=== PATIENT | male | born 1940 | race Caucasian/White ===

== ENCOUNTER 2017-05-24 14:29 | Emergency (ER) | payer OTHER, MEDICARE ==
[2017-05-24] MEDS ORDERED: HYDROCODONE/ACETAMINOPHEN 5-325 MG TABLET PO ONE (14:54)
--- NOTE | 2017-05-24 14:54 | ER Document Report ---
ED General - General Chief Complaint: Fall Stated Complaint: FALL FACIAL PAIN Time Seen by Provider: 05/24/17 14:50 Mode of Arrival: Ambulatory Information source: Patient Notes: 76 yr old male on Coumadin for history of blood clot whose last INR was 3.1 on presents after falling out of bed striking his head and his neck TRAVEL OUTSIDE OF THE [place] IN LAST 30 DAYS: No - HPI Onset: Just prior to arrival Onset/Duration: Sudden Quality of pain: Achy Severity: Mild Pain Level: 1 Associated symptoms: Headache, Other Exacerbated by: Movement Relieved by: Denies Similar symptoms previously: No Recently seen / treated by doctor: No - Related Data Allergies/Adverse Reactions: No Known Allergies Allergy (Verified 12/17/15 15:01) Past Medical History - Social History Smoking Status: Never Smoker Cigarette use (# per day): No Chew tobacco use (# tins/day): No Smoking Education Provided: No Frequency of alcohol use: None Drug Abuse: None Family History: Reviewed & Not Pertinent - Past Medical History Cardiac Medical History: Reports: Hx Congestive Heart Failure, Hx Coronary Artery Disease, Hx Heart Attack - 1997?, Hx Hypercholesterolemia, Hx Hypertension Pulmonary Medical History: Reports: Hx Asthma - as child Denies: Hx Tuberculosis Neurological Medical History: Reports: Hx Cerebrovascular Accident - 1989? Renal/ Medical History: Denies: Hx Peritoneal Dialysis GI Medical History: Reports: Hx Hiatal Hernia, Hx Ulcer Musculoskeltal Medical History: Reports Hx Arthritis Psychiatric Medical History: Denies: Hx Depression Traumatic Medical History: Reports: Hx Fractures - rt hand, lft knee Past Surgical History: Reports: Hx Abdominal Surgery - bowel obstructionX6, Hx Appendectomy - 1963, Hx Cardiac Surgery - CARDIAC STENT, AORTIC GRAFT, Hx Cholecystectomy - 2008. Denies: Hx Pacemaker - Immunizations Hx Diphtheria, Pertussis, Tetanus Vaccination: Yes - 2006 Hx Pneumococcal Vaccination: 11/20/13 Review of Systems - Review of Systems Notes: REVIEW OF SYSTEMS: CONSTITUTIONAL : Denies fever, chills, or sweats. Denies recent illness. EENT: Denies eye, ear, throat, or mouth pain or symptoms. Denies nasal or sinus congestion or discharge. Denies throat, tongue, or mouth swelling or difficulty swallowing. CARDIOVASCULAR: Denies chest pain. Denies palpitations or racing or irregular heart beat. Denies ankle edema. RESPIRATORY: Denies cough, cold, or chest congestion. Denies shortness of breath, difficulty breathing, or wheezing. GASTROINTESTINAL: Denies abdominal pain or distention. Denies nausea, vomiting , or diarrhea. Denies blood in vomitus, stools, or per rectum. Denies black, tarry stools. Denies constipation. GENITOURINARY: Denies difficulty urinating, painful urination, burning, frequency, blood in urine, or discharge. MUSCULOSKELETAL: admits to right elbow pain , right knee pain SKIN: Admits to abrasion HEMATOLOGIC : Denies easy bruising or bleeding. LYMPHATIC: Denies swollen, enlarged glands. NEUROLOGICAL: Denies confusion or altered mental status. Denies passing out or loss of consciousness. Denies dizziness or lightheadedness. Denies headache. Denies weakness or paralysis or loss of use of either side. Denies problems with gait or speech. Denies sensory loss, numbness, or tingling. Denies seizures. PSYCHIATRIC: Denies anxiety or stress. Denies depression, suicidal ideation, or homicidal ideation. ALL OTHER SYSTEMS REVIEWED AND NEGATIVE. Dictation was performed using [employer] voice recognition software PHYSICAL EXAMINATION: GENERAL: Well-appearing, well-nourished and in no acute distress. HEAD: Atraumatic, normocephalic. EYES: Pupils equal round and reactive to light, extraocular movements intact, sclera anicteric, conjunctiva are normal. ENT: Nares patent, oropharynx clear without exudates. Moist mucous membranes. NECK: Normal range of motion, supple without lymphadenopathy LUNGS: Breath sounds clear to auscultation bilaterally and equal. No wheezes rales or rhonchi. HEART: Regular rate and rhythm without murmurs ABDOMEN: Soft, nontender, nondistended abdomen. No guarding, no rebound. No masses appreciated. Musculoskeletal: Normal range of motion, no pitting or edema. No cyanosis. NEUROLOGICAL: Cranial nerves grossly intact. Normal speech, normal gait. Normal sensory, motor exams PSYCH: Normal mood, normal affect. SKIN: abrasion ot the right neck, right elbow Physical Exam - Vital signs Vitals: Temp Pulse Resp BP Pulse Ox 99.1 F 77 16 149/65 H 94 05/24/17 14:36 05/24/17 14:36 05/24/17 14:36 05/24/17 14:36 05/24/17 14:36 Course - Re-evaluation Re-evalutation: 05/24/17 16:51 Patient's INR is noted to be 1.99, CT imaging as well as x-rays noted no acute fractures. I reviewed results with patient and he is happy with the findings I will give him very strict return precautions regarding his fall and possible missed injuries After performing a Medical Screening Examination, I estimate there is LOW risk for INTRACRANIAL HEMORRHAGE, UNSTABLE SPINE FRACTURE, CENTRAL CORD SYNDROME, CAUDA EQUINA, THORACIC AORTIC DISSECTION, PNEUMOTHORAX, PERFORATED BOWEL, RUPTURED ABDOMINAL AORTIC ANEURYSM, ACUTE TENDON RUPTURE, COMPARTMENT SYNDROME, or OPEN FRACTURE, thus I consider the discharge disposition reasonable. Also, there is no evidence or peritonitis, sepsis, or toxicity. I have reevaluated this patient multiple times and no significant life threatening changes are noted. The patient and I have discussed the diagnosis and risks, and we agree with discharging home to follow-up with their primary doctor with the understanding that symptoms and presentations can change. We also discussed returning to the Emergency Department immediately if new or worsening symptoms occur. We have discussed the symptoms which are most concerning (e.g., bloody stool, fever, changing or worsening pain, vomiting) that necessitate immediate return. - Vital Signs Vital signs: Temp Pulse Resp BP Pulse Ox 98.5 F 69 16 141/63 H 97 05/24/17 16:44 05/24/17 16:44 05/24/17 16:44 05/24/17 16:44 05/24/17 16:44 05/24/17 16:14 Imaging noted no significant abnormality, inr pending - Laboratory Laboratory results interpreted by me: 05/24/17 15:45 PT 23.7 H - Diagnostic Test Radiology reviewed: Image reviewed, Reports reviewed - No acute abnormality noted on imaging Discharge - Discharge Clinical Impression: Abrasions of multiple sites Fall Qualifiers: Encounter type: initial encounter Qualified Code(s): W19.XXXA - Unspecified fall, initial encounter Head injury Qualifiers: Encounter type: initial encounter Qualified Code(s): S09.90XA - Unspecified injury of head, initial encounter Condition: Stable Disposition: HOME, SELF-CARE Instructions: Head Injury Precautions ([facility]) Additional Instructions: Please return immediately if there are any other concerns Please follow-up with your primary care physician regarding your current INR Prescriptions: Oxycodone HCl/Acetaminophen [Percocet 5-325 mg Tablet] 1 - 2 tab PO Q4H PRN #25 tablet PRN Reason:
--- NOTE | 2017-05-24 15:37 | RADIOLOGY REPORT (SQ) ---
EXAM DESCRIPTION: CT HEAD WITHOUT COMPLETED DATE/TIME: 05/24/2017 3:13 pm REASON FOR STUDY: fall on coumadin COMPARISON: None. TECHNIQUE: Axial images acquired through the brain without intravenous contrast. Images reviewed wi th bone, brain and subdural windows. Images stored on PACS. All CT scanners at this facility use dose modulation, iterative reconstruction, and/or weight based d osing when appropriate to reduce radiation dose to as low as reasonably achievable (ALARA). [facility]: Dose Right [facility]: CareDose [facility]: Dose Right [facility]: Teradose 4D [facility]: Smart [employer] RADIATION DOSE: Up-to-date CT equipment and radiation dose reduction techniques were employed. CTDIv ol: 64.6 mGy. DLP: 1163 mGy-cm. mGy. LIMITATIONS: None. FINDINGS: VENTRICLES: Prominent. CEREBRUM: No masses. No hemorrhage. No midline shift. Areas of low density in the white matter mos t likely due to chronic micro-vascular ischemic change. No evidence for acute infarction. CEREBELLUM: No masses. No hemorrhage. No alteration of density. No evidence for acute infarction. EXTRAAXIAL SPACES: Mild age-related involutional change. No fluid collections. No masses. ORBITS AND GLOBE: No intra- or extraconal masses. Normal contour of globe without masses. CALVARIUM: No fracture. PARANASAL SINUSES: No fluid or mucosal thickening. SOFT TISSUES: No mass or hematoma. OTHER: No other significant finding. IMPRESSION: MILD CHRONIC CHANGES OF ATROPHY AND MICROVASCULAR ISCHEMIA. NO ACUTE PROCESS. TECHNICAL DOCUMENTATION: JOB ID: [id number] Quality ID # [id number]: Final reports with documentation of one or more dose reduction techniques (e.g., Au tomated exposure control, adjustment of the mA and/or kV according to patient size, use of iterative reconstruction technique) 2010 [employer]- All Rights Reserved
--- NOTE | 2017-05-24 15:38 | RADIOLOGY REPORT (SQ) ---
EXAM DESCRIPTION: CT CERVICAL SPINE WITHOUT COMPLETED DATE/TIME: 05/24/2017 3:13 pm REASON FOR STUDY: fall on coumadin COMPARISON: None. TECHNIQUE: Axial images acquired through the cervical spine without intravenous contrast. Images re viewed with lung, soft tissue and bone windows. Reconstructed coronal and sagittal MPR images review ed. Images stored on PACS. All CT scanners at this facility use dose modulation, iterative reconstruction, and/or weight based d osing when appropriate to reduce radiation dose to as low as reasonably achievable (ALARA). [facility]: Dose Right [facility]: CareDose [facility]: Dose Right [facility]: Teradose 4D [facility]: Smart [employer] RADIATION DOSE: Up-to-date CT equipment and radiation dose reduction techniques were employed. CTDIv ol: 23.8 mGy. DLP: 533 mGy-cm. mGy. LIMITATIONS: None. FINDINGS: ALIGNMENT: Anatomic. MINERALIZATION: Normal. VERTEBRAL BODIES: No fractures or dislocation. DISCS: Multilevel disc space narrowing with osteophytes. FACETS, LATERAL MASSES, POSTERIOR ELEMENTS: Facet arthropathy. No fractures. No dislocation. No ac eors findings. HARDWARE: None in the spine. VISUALIZED RIBS: No fractures. LUNG APICES AND SOFT TISSUES: No significant or acute findings. OTHER: No other significant finding. IMPRESSION: CHRONIC DEGENERATIVE CHANGES. NO ACUTE FINDINGS. TECHNICAL DOCUMENTATION: JOB ID: [id number] Quality ID # [id number]: Final reports with documentation of one or more dose reduction techniques (e.g., Au tomated exposure control, adjustment of the mA and/or kV according to patient size, use of iterative reconstruction technique) 2010 [employer]- All Rights Reserved
--- NOTE | 2017-05-24 15:40 | RADIOLOGY REPORT (SQ) ---
EXAM DESCRIPTION: CT FACIAL AREA WITHOUT COMPLETED DATE/TIME: 05/24/2017 3:13 pm REASON FOR STUDY: fall on coumadin COMPARISON: None. TECHNIQUE: Noncontrasted images through the facial bones and orbits windowed for bone and soft tissu e. Additional coronal and sagittal reconstructed images reviewed. All images stored on PACS. All CT scanners at this facility use dose modulation, iterative reconstruction, and/or weight based d osing when appropriate to reduce radiation dose to as low as reasonably achievable (ALARA). [facility]: Dose Right [facility]: CareDose [facility]: Dose Right [facility]: Teradose 4D [facility]: Smart [employer] RADIATION DOSE: Up-to-date CT equipment and radiation dose reduction techniques were employed. CTDIv ol: 30.4 mGy. DLP: 636 mGy-cm. mGy. LIMITATIONS: None. FINDINGS: FACIAL BONES: No fracture or bone lesion. ORBITS: Intact. No fracture. Symmetric intact globes and retroorbital soft tissues. PARANASAL SINUSES: Clear. No significant mucosal thickening, mass or fluid. No nasal polyps. Maxill afua sinus outlets are patent. SOFT TISSUES: No mass or edema. INFERIOR BRAIN: Limited view. No acute findings. OTHER: No other significant finding. IMPRESSION: NO ACUTE FINDINGS. TECHNICAL DOCUMENTATION: JOB ID: [id number] Quality ID # [id number]: Final reports with documentation of one or more dose reduction techniques (e.g., Au tomated exposure control, adjustment of the mA and/or kV according to patient size, use of iterative reconstruction technique) 2010 [employer]- All Rights Reserved
--- NOTE | 2017-05-24 15:48 | RADIOLOGY REPORT (SQ) ---
EXAM DESCRIPTION: ELBOW RIGHT OVER 2 VIEWS COMPLETED DATE/TIME: 05/24/2017 3:37 pm REASON FOR STUDY: fall on coumadin COMPARISON: None. NUMBER OF VIEWS: Two views. TECHNIQUE: AP and lateral radiographic images acquired of the right elbow. LIMITATIONS: None. FINDINGS: MINERALIZATION: Normal. BONES: No acute fracture or dislocation. No worrisome bone lesions. JOINT: No effusion. SOFT TISSUES: No soft tissue swelling. No foreign body. OTHER: No other significant finding. IMPRESSION: NEGATIVE STUDY OF THE RIGHT ELBOW. NO RADIOGRAPHIC EVIDENCE OF ACUTE INJURY. TECHNICAL DOCUMENTATION: JOB ID: [id number] [employer]- All Rights Reserved
--- NOTE | 2017-05-24 15:49 | RADIOLOGY REPORT (SQ) ---
EXAM DESCRIPTION: KNEE RIGHT 4 VIEWS COMPLETED DATE/TIME: 05/24/2017 3:37 pm REASON FOR STUDY: fall on coumadin COMPARISON: None. NUMBER OF VIEWS: Four views. TECHNIQUE: AP, lateral, and both oblique radiographic images acquired of the right knee. LIMITATIONS: None. FINDINGS: MINERALIZATION: Normal. BONES: No acute fracture or dislocation. No worrisome bone lesions. JOINT: No effusion. SOFT TISSUES: No soft tissue swelling. No radio-opaque foreign body. OTHER: No other significant finding. IMPRESSION: NEGATIVE STUDY OF THE RIGHT KNEE. NO RADIOGRAPHIC EVIDENCE OF ACUTE INJURY. TECHNICAL DOCUMENTATION: JOB ID: [id number] [employer]- All Rights Reserved
[2017-05-24 16:17] LABS: PROTHROMBIN TIME 23.7 SEC (11.4-15.4)
[2017-05-24 16:44] VITALS: BP 141/63
[2017-05-24] MEDS ORDERED: OXYCODONE-ACETAMINOPHEN 5-325 MG TABLET PO ONE (16:51)
== END 2017-05-24 17:05 | disposition home or self-care (01) ==
LOC: ER 14:29
DX: S00.91XA Abrasion of unspecified part of head, initial encounter (principal); S09.90XA Unspecified injury of head, initial encounter; R51 Headache; Z79.01 Long term (current) use of anticoagulants; W19.XXXA Unspecified fall, initial encounter
CPT/HCPCS: 36415; 70450; 70486; 72125; 85610; 99284

== ENCOUNTER 2019-05-08 13:41 | Inpatient (IN) | payer OTHER, MEDICARE ==
[2019-05-08 15:19] LABS: ABSOLUTE EOSINOPHILS # (AUTO) 0.3 10^3/uL (0.0-0.6); ABSOLUTE LYMPHOCYTES (AUTO) 1.6 10^3/uL (0.5-4.7); ABSOLUTE MONOCYTES (AUTO) 0.5 10^3/uL (0.1-1.4); ABSOLUTE NEUT (AUTO) 4.7 10^3/uL (1.7-8.2); BASOPHILS % (AUTO) 0.4 % (0-2); HEMATOCRIT 39.6 % (37.9-51.0); HEMOGLOBIN 12.7 g/dL (13.5-17.0); LYMPHOCYTES % (AUTO) 22.8 % (13-45); MEAN CORPUSCULAR HEMOGLOBIN 29.2 pg (27.0-33.4); MEAN CORPUSCULAR VOLUME 91 fl (80-97); MONOCYTES % (AUTO) 7.2 % (3-13); PLATELET COUNT 181 10^3/uL (150-450); RED BLOOD COUNT 4.34 10^6/uL (4.35-5.55); RED CELL DISTRIBUTION WIDTH 15.1 % (11.5-14.0); SEGMENTED NEUTROPHILS % (AUTO) 65.6 % (42-78); TOTAL CELLS COUNTED % (AUTO) 100 %; WHITE BLOOD COUNT 7.2 10^3/uL (4.0-10.5)
[2019-05-08 15:21] LABS: INTERNATIONAL RATION (INR) 2.27; PROTHROMBIN TIME 25.4 SEC (11.4-15.4)
[2019-05-08 15:24] LABS: ALBUMIN 4.5 g/dL (3.5-5.0); ALKALINE PHOSPHATASE 116 U/L (38-126); ANION GAP 11 (5-19); ASPARTATE AMINO TRANSFERASE 35 U/L (17-59); BILIRUBIN,DIRECT 0.3 mg/dL (0.0-0.4); BILIRUBIN,TOTAL 0.4 mg/dL (0.2-1.3); BLOOD UREA NITROGEN 43 mg/dL (7-20); CALCIUM 9.6 mg/dL (8.4-10.2); CARBON DIOXIDE 24 mmol/L (22-30); CHLORIDE 107 mmol/L (98-107); GLUCOSE 111 mg/dL (75-110); POTASSIUM 5.9 mmol/L (3.6-5.0); TOTAL PROTEIN 7.6 g/dL (6.3-8.2)
--- NOTE | 2019-05-08 15:24 | RADIOLOGY REPORT (SQ) ---
EXAM DESCRIPTION: CHEST 2 VIEWS COMPLETED DATE/TIME: 05/08/2019 3:09 pm REASON FOR STUDY: bloody cough COMPARISON: 07/12/2014 TECHNIQUE: Frontal and lateral radiographic views of the chest acquired. NUMBER OF VIEWS: Two view. LIMITATIONS: None. FINDINGS: LUNGS AND PLEURA: No pneumothorax. No consolidation or pleural effusion. Similar chronic interstitial changes -emphysema and basilar scarring. MEDIASTINUM AND HILAR STRUCTURES: Stable. HEART AND VASCULAR STRUCTURES: Stable. BONES: No acute findings. HARDWARE: None in the chest. OTHER: No other significant finding. IMPRESSION: NO ACUTE FINDINGS. TECHNICAL DOCUMENTATION: JOB ID: [id number] [place]-72 2010 [employer]- All Rights Reserved Reading location - IP/workstation name: [facility]
--- NOTE | 2019-05-08 15:50 | ER Document Report ---
ED Respiratory Problem - General Chief Complaint: Shortness Of Breath Stated Complaint: COUGHING BLOOD Time Seen by Provider: 05/08/19 14:35 Primary Care Provider: VASILIY NICHOLSON MD [Primary Care Provider] - Follow up as needed Notes: Patient says he is been coughing up blood for the past couple of hours. He was cooking and started coughing and blood came up immediately with the start of the coughing. He is never had this happen to him before. 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 He has been on this medication for 20 years. Pro time was last checked a couple weeks ago and no changes were made in his dosage. He has not been sick in any way. Has not had any significant cough or chest congestion recently. Not running any fevers. No nausea or vomiting. History of COPD. Ex-smoker for 20 years. TRAVEL OUTSIDE OF THE [place] IN LAST 30 DAYS: No - Related Data Allergies/Adverse Reactions: No Known Allergies Allergy (Verified 05/08/19 13:43) Past Medical History - Social History Smoking Status: Former Smoker - Stopped 20 years ago Chew tobacco use (# tins/day): No Frequency of alcohol use: None Drug Abuse: None Family History: Reviewed & Not Pertinent Patient has suicidal ideation: No Patient has homicidal ideation: No - Past Medical History Cardiac Medical History: Reports: Hx Congestive Heart Failure, Hx Coronary Artery Disease, Hx Heart Attack - 1997?, Hx Hypercholesterolemia, Hx Hypertension Pulmonary Medical History: Reports: Hx Asthma - as child, Hx COPD Neurological Medical History: Reports: Hx Cerebrovascular Accident - 1989? GI Medical History: Reports: Hx Hiatal Hernia, Hx Ulcer Musculoskeletal Medical History: Reports Hx Arthritis Traumatic Medical History: Reports: Hx Fractures - rt hand, lft knee Past Surgical History: Reports: Hx Abdominal Surgery - bowel obstructionX6, Hx Appendectomy - 1963, Hx Cardiac Surgery - CARDIAC STENT, AORTIC GRAFT, Hx Cholecystectomy - 2008 - Immunizations Hx Diphtheria, Pertussis, Tetanus Vaccination: Yes - 2006 Hx Pneumococcal Vaccination: 11/20/13 Review of Systems - Review of Systems Notes: REVIEW OF SYSTEMS: CONSTITUTIONAL : Denies fever. EENT: Denies eye, ear, nose or mouth or throat pain or other symptoms. CARDIOVASCULAR: Denies chest pain. RESPIRATORY: Denies chest congestion or shortness of breath. GASTROINTESTINAL: Denies abdominal pain or nausea, vomiting, or diarrhea. GENITOURINARY: Denies difficulty or painful urinating, urinary frequency, blood in urine. MUSCULOSKELETAL: Denies back or neck pain. Denies joint pain or swelling. SKIN: Denies rash or skin lesions. NEUROLOGICAL: Denies LOC or altered mental status. Denies headache. Denies sensory loss or motor deficits. ALL OTHER SYSTEMS REVIEWED AND NEGATIVE. Physical Exam - Vital signs Vitals: Resp BP Pulse Ox 21 H 149/59 H 95 05/08/19 14:03 05/08/19 14:03 05/08/19 14:03 Interpretation: Normal Notes: PHYSICAL EXAMINATION: GENERAL: Well-appearing, in no acute distress. Coughing up small amounts of blood. HEAD: Atraumatic, normocephalic. EYES: Pupils equal round and reactive to light, extraocular movements intact. ENT: oropharynx clear without exudates. Moist mucous membranes. NECK: Normal range of motion, supple. LUNGS: Breath sounds clear and equal bilaterally. HEART: Regular rate and rhythm without murmurs. ABDOMEN: Soft, nontender. No guarding or rebound. No masses. BACK: No tenderness throughout entire back. EXTREMITIES: Normal range of motion without pain. Negative Homans. NEUROLOGICAL: Normal speech, normal gait. Normal sensory, motor, and reflex exams. Awake, alert, and oriented x3. Cranial nerves normal. SKIN: Warm, dry, no rashes. Course - Re-evaluation Re-evalutation: 05/08/19 15:56 I have discussed the case with the hospitalist and patient will be admitted for further work-up and evaluation. 05/08/19 15:57 Patient's labs show mild renal insufficiency with a creatinine of 1.98. - Vital Signs Vital signs: Temp Pulse Resp BP Pulse Ox 28 H 149/59 H 96 05/08/19 15:06 05/08/19 14:03 05/08/19 15:06 - Laboratory Result Diagrams: 05/08/19 14:30 05/08/19 14:30 Laboratory results interpreted by me: 05/08/19 05/08/19 05/08/19 14:30 14:30 14:30 RBC 4.34 L Hgb 12.7 L RDW 15.1 H PT 25.4 H Potassium 5.9 H BUN 43 H Creatinine 1.98 H Est GFR ( Amer) 40 L Est GFR (Non-Af Amer) 33 L Glucose 111 H - Diagnostic Test Radiology results interpreted by tn: 05/08/19 15:56 Chest x-ray is normal. - EKG Interpretation by Ne EKG shows normal: Sinus rhythm Rate: Normal Rhythm: NSR Additional EKG results interpreted by tn: 05/08/19 15:56 EKG is normal. Discharge - Discharge Clinical Impression: Hemoptysis, Chronic obstructive pulmonary disease (COPD) Condition: Stable Disposition: ADMITTED INPATIENT Admitting Provider: Junie (Hospitalist) Unit Admitted: Telemetry Referrals: VASILIY NICHOLSON MD [Primary Care Provider] - Follow up as needed
--- NOTE | 2019-05-08 16:30 | RADIOLOGY REPORT (SQ) ---
EXAM DESCRIPTION: CT CHEST WITHOUT COMPLETED DATE/TIME: 05/08/2019 4:19 pm REASON FOR STUDY: HEMOPTYSIS COMPARISON: Chest radiograph 05/08/2019, CT scan 07/12/2014 TECHNIQUE: CT scan performed of the chest without intravenous contrast. Images reviewed with lung, soft tissue and bone windows. Reconstructed coronal and sagittal MPR images reviewed. All images st ored on PACS. All CT scanners at this facility use dose modulation, iterative reconstruction, and/or weight based d osing when appropriate to reduce radiation dose to as low as reasonably achievable (ALARA). [facility]: Dose Right [facility]: CareDose [facility]: Dose Right [facility]: Teradose 4D [facility]: Smart [employer] RADIATION DOSE: CT Rad equipment meets quality standard of care and radiation dose reduction techniq ues were employed. CTDIvol: 13.3 mGy. DLP: 573 mGy-cm. mGy. LIMITATIONS: No technical limitations. FINDINGS: LUNGS AND PLEURA: No masses, infiltrates, or pneumothorax. No pleural effusions or pleura l calcifications. Minimal interstitial changes peripherally. HILAR AND MEDIASTINAL STRUCTURES: No identified masses or abnormal nodes. No obvious aneurysm. HEART AND VASCULAR STRUCTURES: Coronary artery calcification. UPPER ABDOMEN: No significant findings. Limited exam. THYROID AND OTHER SOFT TISSUES: No masses. No adenopathy. BONES: No significant finding. HARDWARE: None in the chest. OTHER: No other significant findings. IMPRESSION: Coronary artery calcification. No significant finding in the lungs. No explanation for hemoptysis. TECHNICAL DOCUMENTATION: JOB ID: [id number] Quality ID # [id number]: Final reports with documentation of one or more dose reduction techniques (e.g., Au tomated exposure control, adjustment of the mA and/or kV according to patient size, use of iterative reconstruction technique) 2010 [employer]- All Rights Reserved Reading location - IP/workstation name: [email or web address]
[2019-05-08] MEDS ORDERED: HYDRALAZINE HCL INJ/PF 20 MG/1 ML SDV IV PRN (17:02)
--- NOTE | 2019-05-08 18:00 | PDOC H&P ---
History of Present Illness Admission Date/PCP: 05/08/19 16:19 VASILIY NICHOLSON MD Patient complains of: hemoptysis History of Present Illness: SERGO DE LA VEGA is a 78 year old male with a past medical history of CAD with a past medical history of CAD with prior stenting x1, CKD, PVD with prior bilateral bypass, history of aortic graft placement hence was placed on chronic Coumadin therapy, hypertension, and who presented with hemoptysis. COPD Patient says he has been apparently fine until 1 PM this afternoon when he started coughing blood. He says he had 3-4 episodes and estimated a tablespoon of blood per episode. He denies chest pain or SOB. He denies any fever or chills. Denies nasal congestion. Past Medical History Cardiac Medical History: Reports: Congestive Heart Failure, Coronary Artery Disease, Myocardial Infarction - 1997?, Hyperlipidema, Hypertension Pulmonary Medical History: Reports: Asthma - as child, Chronic Obstructive Pulmonary Disease (COPD) Denies: Tuberculosis GI Medical History: Reports: Hiatal Hernia Musculoskeltal Medical History: Reports: Arthritis Psychiatric Medical History: Denies: Depression Past Surgical History Past Surgical History: Reports: Appendectomy - 1963, Cholecystectomy - 2008 Denies: Pacemaker Social History Smoking Status: Former Smoker - Stopped 20 years ago Frequency of Alcohol Use: None Hx Recreational Drug Use: No Hx Prescription Drug Abuse: No Family History Family History: Reviewed & Not Pertinent Parental Family History Reviewed: Yes - no premature CAD Children Family History Reviewed: No Sibling(s) Family History Reviewed.: No Medication/Allergy Home Medications: Acetaminophen [Pain Reliever] 500 mg PO TID PRN 03/24/14 Pravastatin Sodium [Pravachol] 20 mg PO HSP 03/24/14 Tramadol HCl 2 tab PO TID PRN 03/24/14 Warfarin Sodium 7.5 mg PO DAILY 03/24/14 Aspirin [Ecotrin] 81 mg PO DAILY 07/12/14 Cyclobenzaprine HCl 10 mg PO Q8H 07/12/14 Docusate Sodium [Colace 100 mg Capsule] 100 mg PO DAILY 07/12/14 Loratadine [Claritin] 10 mg PO DAILY 07/12/14 Lisinopril 5 mg PO BID #0 07/13/14 Oxycodone HCl/Acetaminophen [Percocet 5-325 mg Tablet] 1 tab PO ASDIR PRN #15 tablet 12/17/15 Prednisone 10 mg PO TID #10 tablet 12/17/15 Oxycodone HCl/Acetaminophen [Percocet 5-325 mg Tablet] 1 - 2 tab PO Q4H PRN #25 tablet 05/24/17 Allergies/Adverse Reactions: No Known Allergies Allergy (Verified 05/08/19 13:43) Review of Systems All systems: reviewed and no additional remarkable complaints except as stated - as mentioned in HPI Physical Exam Vital Signs: Temp Pulse Resp BP Pulse Ox 17 141/62 H 98 05/08/19 16:01 05/08/19 16:01 05/08/19 16:01 Intake & Output 05/07/19 05/08/19 05/09/19 06:59 06:59 06:59 Weight 225 lb 8.526 oz General appearance: PRESENT: no acute distress, well-developed, well-nourished Head exam: PRESENT: atraumatic, normocephalic Eye exam: PRESENT: conjunctiva pink, EOMI, PERRLA. ABSENT: scleral icterus Ear exam: PRESENT: normal external ear exam Mouth exam: PRESENT: moist, tongue midline Neck exam: ABSENT: carotid bruit, JVD, lymphadenopathy, thyromegaly Respiratory exam: PRESENT: clear to auscultation audra. ABSENT: rales, rhonchi, wheezes Cardiovascular exam: PRESENT: RRR. ABSENT: diastolic murmur, rubs, systolic murmur Pulses: PRESENT: normal dorsalis pedis pul GI/Abdominal exam: PRESENT: normal bowel sounds, soft. ABSENT: distended, guarding, mass, organolmegaly, rebound, tenderness Rectal exam: PRESENT: deferred Extremities exam: PRESENT: full ROM. ABSENT: calf tenderness, clubbing, pedal edema Neurological exam: PRESENT: alert, awake, oriented to person, oriented to place, oriented to time, oriented to situation, CN II-XII grossly intact. ABSENT: motor sensory deficit Results Laboratory Results: 05/08/19 14:30 05/08/19 14:30 05/08/19 05/08/19 14:30 14:30 WBC 7.2 RBC 4.34 L Hgb 12.7 L Hct 39.6 MCV 91 MCH 29.2 MCHC 32.0 RDW 15.1 H Plt Count 181 Seg Neutrophils % 65.6 Lymphocytes % 22.8 Monocytes % 7.2 Eosinophils % 4.0 Basophils % 0.4 Absolute Neutrophils 4.7 Absolute Lymphocytes 1.6 Absolute Monocytes 0.5 Absolute Eosinophils 0.3 Absolute Basophils 0.0 Sodium 141.6 Potassium 5.9 H Chloride 107 Carbon Dioxide 24 Anion Gap 11 BUN 43 H Creatinine 1.98 H Est GFR ( Amer) 40 L Est GFR (Non-Af Amer) 33 L Glucose 111 H Calcium 9.6 Total Bilirubin 0.4 AST 35 Alkaline Phosphatase 116 Total Protein 7.6 Albumin 4.5 05/08/19 14:30 Troponin I < 0.012 Impressions: Chest X-Ray 05/08/19 00:00 IMPRESSION: NO ACUTE FINDINGS. Chest CT 05/08/19 15:53 IMPRESSION: Coronary artery calcification. No significant finding in the lungs. No explanation for hemoptysis. Assessment and Plan - Diagnosis (1) Hemoptysis Is this a current diagnosis for this admission?: Yes Plan: Chest x-ray is normal. Chest CT was also unremarkable. Discussed with patient and is amenable to holding off on Coumadin and aspirin for now. No indication for FFP at this time unless he has recurrence or persistence of hemoptysis. INR is 2.2. Will consult home for further recommendations. (2) Chronic anticoagulation Is this a current diagnosis for this admission?: Yes Plan: Hold off on coumadin for now. (3) Chronic obstructive pulmonary disease (COPD) Is this a current diagnosis for this admission?: Yes Plan: Not in exacerbation. Breathing treatments as needed. (4) CAD (coronary artery disease) Is this a current diagnosis for this admission?: Yes Plan: Stable. (5) CKD (chronic kidney disease), stage III Is this a current diagnosis for this admission?: Yes Plan: Avoid nephrotoxic agents. We will hold off on lisinopril due to hyperkalemia. (6) Congestive heart failure Is this a current diagnosis for this admission?: Yes Plan: Not in exacerbation (7) HTN (hypertension) Is this a current diagnosis for this admission?: Yes Plan: We will hold off on lisinopril for now due to hyperkalemia. (8) Hyperkalemia Is this a current diagnosis for this admission?: Yes Plan: Will give Veltassa. No EKG changes. - Time Time Spent with patient: 25-34 minutes
[2019-05-08] MEDS ORDERED: ACETAMINOPHEN 325 MG TABLET PO PRN (18:25)
--- NOTE | 2019-05-08 18:26 | ADVANCED CARE ---
- Diagnosis (1) Hemoptysis Diagnosis Current: Yes (3) Chronic anticoagulation Diagnosis Current: Yes (4) Hyperkalemia Diagnosis Current: Yes (5) Chronic obstructive pulmonary disease (COPD) Diagnosis Current: Yes (6) Chest pain Diagnosis Current: Yes (7) CAD (coronary artery disease) Diagnosis Current: Yes (8) CKD (chronic kidney disease), stage III Diagnosis Current: Yes Resuscitation Status: Full Code Discussion: Patient says that he is a full code. He says he prefers to get chest compressions, defibrillation or mechanical ventilation if the need arises. He says that his son, Salomón Osborne is his surrogate medical decision maker.
[2019-05-08] MEDS: ATORVASTATIN CALCIUM 40 MG TABLET PO SCH (21:14)
[2019-05-09 04:36] LABS: ABSOLUTE EOSINOPHILS # (AUTO) 0.3 10^3/uL (0.0-0.6); ABSOLUTE LYMPHOCYTES (AUTO) 1.7 10^3/uL (0.5-4.7); ABSOLUTE MONOCYTES (AUTO) 0.5 10^3/uL (0.1-1.4); ABSOLUTE NEUT (AUTO) 3.4 10^3/uL (1.7-8.2); BASOPHILS % (AUTO) 0.6 % (0-2); EOSINOPHILS % (AUTO) 5.5 % (0-6); HEMATOCRIT 37.5 % (37.9-51.0); HEMOGLOBIN 12.3 g/dL (13.5-17.0); MEAN CORPUSCULAR HEMOGLOBIN 29.6 pg (27.0-33.4); MEAN CORPUSCULAR HGB CONC 32.7 g/dL (32.0-36.0); MEAN CORPUSCULAR VOLUME 91 fl (80-97); MONOCYTES % (AUTO) 8.6 % (3-13); PLATELET COUNT 164 10^3/uL (150-450); RED BLOOD COUNT 4.15 10^6/uL (4.35-5.55); RED CELL DISTRIBUTION WIDTH 15.4 % (11.5-14.0); SEGMENTED NEUTROPHILS % (AUTO) 56.3 % (42-78); TOTAL CELLS COUNTED % (AUTO) 100 %
[2019-05-09 04:37] LABS: INTERNATIONAL RATION (INR) 1.95; PROTHROMBIN TIME 22.5 SEC (11.4-15.4)
[2019-05-09 04:48] LABS: ANION GAP 9 (5-19); BLOOD UREA NITROGEN 42 mg/dL (7-20); CALCIUM 9.3 mg/dL (8.4-10.2); CARBON DIOXIDE 20 mmol/L (22-30); CHLORIDE 112 mmol/L (98-107); GLUCOSE 106 mg/dL (75-110); POTASSIUM 5.1 mmol/L (3.6-5.0)
[2019-05-09] MEDS: IPRATROPIUM/ALBUTEROL 0.5-2.5 MG/3 ML AMPUL NEB PRN ×2 (08:49→15:52)
[2019-05-09] MEDS: PATIROMER 8.4 GM SUSP PACKET PO SCH ×2 (09:58→18:49)
[2019-05-09] MEDS: TRAMADOL HCL 50 MG TABLET PO PRN (10:02)
[2019-05-09] MEDS: AMLODIPINE BESYLATE 5 MG TABLET PO SCH (10:03)
--- NOTE | 2019-05-09 11:37 | EKG REPORT ---
SEVERITY:- NORMAL ECG - SINUS RHYTHM : Confirmed by: Lex Romero 09-May-2019 11:36:38
--- NOTE | 2019-05-09 14:31 | PDOC PROGRESS REPORT ---
Subjective Progress Note for:: 05/09/19 Subjective:: This is a 78 year old male with a past medical history of CAD with a past medical history of CAD with prior stenting x1, COPD, CKD, PVD with prior bilateral bypass, history of aortic graft placement hence was placed on chronic coumadin therapy, hypertension, and who presented with hemoptysis. He had 3 more episodes of hemopptysis overnight but says they have been less bloody. He did coughed out a sightly bloody sputum upon encounter this morning. He says he forgot to report that he also has some dysphagia "as if something is stuck in my throat". Will order a neck CT. Reason For Visit: HEMOPTYSIS Physical Exam Vital Signs: Temp Pulse Resp BP Pulse Ox 97.5 F 68 18 146/79 H 97 05/09/19 11:57 05/09/19 11:57 05/09/19 11:57 05/09/19 11:57 05/09/19 11:57 Intake & Output 05/08/19 05/09/19 05/10/19 06:59 06:59 06:59 Intake Total 440 Balance 440 Weight 238 lb 15.697 oz General appearance: PRESENT: no acute distress, well-developed, well-nourished Head exam: PRESENT: atraumatic, normocephalic Eye exam: PRESENT: conjunctiva pink, EOMI, PERRLA. ABSENT: scleral icterus Ear exam: PRESENT: normal external ear exam Mouth exam: PRESENT: moist, tongue midline Neck exam: ABSENT: carotid bruit, JVD, lymphadenopathy, thyromegaly Respiratory exam: PRESENT: clear to auscultation audra. ABSENT: rales, rhonchi, wheezes Cardiovascular exam: PRESENT: RRR. ABSENT: diastolic murmur, rubs, systolic murmur Pulses: PRESENT: normal dorsalis pedis pul GI/Abdominal exam: PRESENT: normal bowel sounds, soft. ABSENT: distended, guarding, mass, organolmegaly, rebound, tenderness Rectal exam: PRESENT: deferred Extremities exam: PRESENT: full ROM. ABSENT: calf tenderness, clubbing, pedal edema Neurological exam: PRESENT: alert, awake, oriented to person, oriented to place, oriented to time, oriented to situation, CN II-XII grossly intact. ABSENT: motor sensory deficit Results Laboratory Results: 05/09/19 04:14 05/09/19 04:14 05/08/19 05/08/19 05/09/19 14:30 14:30 04:14 WBC 7.2 6.0 RBC 4.34 L 4.15 L Hgb 12.7 L 12.3 L Hct 39.6 37.5 L MCV 91 91 MCH 29.2 29.6 MCHC 32.0 32.7 RDW 15.1 H 15.4 H Plt Count 181 164 Seg Neutrophils % 65.6 56.3 Lymphocytes % 22.8 29.0 Monocytes % 7.2 8.6 Eosinophils % 4.0 5.5 Basophils % 0.4 0.6 Absolute Neutrophils 4.7 3.4 Absolute Lymphocytes 1.6 1.7 Absolute Monocytes 0.5 0.5 Absolute Eosinophils 0.3 0.3 Absolute Basophils 0.0 0.0 Sodium 141.6 Potassium 5.9 H Chloride 107 Carbon Dioxide 24 Anion Gap 11 BUN 43 H Creatinine 1.98 H Est GFR ( Amer) 40 L Est GFR (Non-Af Amer) 33 L Glucose 111 H Calcium 9.6 Total Bilirubin 0.4 AST 35 Alkaline Phosphatase 116 Total Protein 7.6 Albumin 4.5 TSH 05/09/19 05/09/19 04:14 04:14 WBC RBC Hgb Hct MCV MCH MCHC RDW Plt Count Seg Neutrophils % Lymphocytes % Monocytes % Eosinophils % Basophils % Absolute Neutrophils Absolute Lymphocytes Absolute Monocytes Absolute Eosinophils Absolute Basophils Sodium 141.2 Potassium 5.1 H Chloride 112 H Carbon Dioxide 20 L Anion Gap 9 BUN 42 H Creatinine 1.76 H Est GFR ( Amer) 46 L Est GFR (Non-Af Amer) 38 L Glucose 106 Calcium 9.3 Total Bilirubin AST Alkaline Phosphatase Total Protein Albumin TSH 1.48 05/08/19 14:30 Troponin I < 0.012 Impressions: Chest X-Ray 05/08/19 00:00 IMPRESSION: NO ACUTE FINDINGS. Chest CT 05/08/19 15:53 IMPRESSION: Coronary artery calcification. No significant finding in the lungs. No explanation for hemoptysis. Assessment and Plan - Diagnosis (1) Hemoptysis Is this a current diagnosis for this admission?: Yes Plan: Chest x-ray is normal. Chest CT was also unremarkable. Discussed with patient and is amenable to holding off on Coumadin and aspirin for now. No indication for FFP at this time unless he has recurrence or persistence of hemoptysis. INR is 2.2. Will consult home for further recommendations. 05/09: He had 3 more episodes of hemopptysis overnight but says they have been less bloody. He says he forgot to report that he also has some dysphagia "as if something is stuck in my throat". Will order a neck CT. Await further pulm recommendations. (2) Congestive heart failure Is this a current diagnosis for this admission?: Yes Plan: Not in exacerbation. (3) Chronic anticoagulation Is this a current diagnosis for this admission?: Yes Plan: Hold off on coumadin for now. (4) Hyperkalemia Is this a current diagnosis for this admission?: Yes Plan: Improved with holding ACEi and giving Veltassa. (5) Chronic obstructive pulmonary disease (COPD) Is this a current diagnosis for this admission?: Yes Plan: Not in exacerbation. Breathing treatments as needed. (6) CAD (coronary artery disease) Is this a current diagnosis for this admission?: Yes Plan: Stable. Aspirin on hold due to hemoptysis. (7) CKD (chronic kidney disease), stage III Is this a current diagnosis for this admission?: Yes Plan: Avoid nephrotoxic agents. We will hold off on lisinopril due to hyperkalemia. (8) Hypothyroidism Is this a current diagnosis for this admission?: Yes Plan: Resume synthroid. - Time Time Spent with patient: 25-34 minutes
[2019-05-09] MEDS: ATENOLOL 50 MG TABLET PO SCH (14:37)
[2019-05-09] MEDS: ATORVASTATIN CALCIUM 40 MG TABLET PO SCH (21:31)
[2019-05-10 04:24] LABS: ANION GAP 10 (5-19); BLOOD UREA NITROGEN 44 mg/dL (7-20); CALCIUM 9.3 mg/dL (8.4-10.2); CARBON DIOXIDE 21 mmol/L (22-30); CHLORIDE 107 mmol/L (98-107); GLUCOSE 136 mg/dL (75-110); POTASSIUM 4.9 mmol/L (3.6-5.0)
[2019-05-10 04:44] LABS: ABSOLUTE EOSINOPHILS # (AUTO) 0.2 10^3/uL (0.0-0.6); ABSOLUTE LYMPHOCYTES (AUTO) 1.6 10^3/uL (0.5-4.7); ABSOLUTE MONOCYTES (AUTO) 0.5 10^3/uL (0.1-1.4); ABSOLUTE NEUT (AUTO) 4.1 10^3/uL (1.7-8.2); BASOPHILS % (AUTO) 0.4 % (0-2); EOSINOPHILS % (AUTO) 3.5 % (0-6); HEMATOCRIT 38.1 % (37.9-51.0); HEMOGLOBIN 12.6 g/dL (13.5-17.0); LYMPHOCYTES % (AUTO) 24.2 % (13-45); MEAN CORPUSCULAR HEMOGLOBIN 29.7 pg (27.0-33.4); MEAN CORPUSCULAR VOLUME 90 fl (80-97); MONOCYTES % (AUTO) 8.2 % (3-13); PLATELET COUNT 138 10^3/uL (150-450); RED BLOOD COUNT 4.24 10^6/uL (4.35-5.55); RED CELL DISTRIBUTION WIDTH 15.1 % (11.5-14.0); SEGMENTED NEUTROPHILS % (AUTO) 63.7 % (42-78); TOTAL CELLS COUNTED % (AUTO) 100 %; WHITE BLOOD COUNT 6.5 10^3/uL (4.0-10.5)
[2019-05-10] MEDS: LEVOTHYROXINE SODIUM 0.025 MG TABLET PO SCH (05:52)
--- NOTE | 2019-05-10 08:45 | RADIOLOGY REPORT (SQ) ---
EXAM DESCRIPTION: CT SOFT TISSUE NECK WITHOUT COMPLETED DATE/TIME: 05/09/2019 6:36 pm REASON FOR STUDY: dysphagia hemoptysis, normal chest CT COMPARISON: None. TECHNIQUE: Noncontrast scanning from skull base through lung apices with review of bone, soft tissue and lung windows. Reconstructed coronal and sagittal MPR images reviewed. All images stored on PAC S. All CT scanners at this facility use dose modulation, iterative reconstruction, and/or weight based d osing when appropriate to reduce radiation dose to as low as reasonably achievable (ALARA). [facility]: Dose Right [facility]: CareDose [facility]: Dose Right [facility]: Teradose 4D [facility]: 1DocWay RADIATION DOSE: CT Rad equipment meets quality standard of care and radiation dose reduction techniq ues were employed. CTDIvol: 17.7 mGy. DLP: 580 mGy-cm. mGy. LIMITATIONS: None. FINDINGS: SKULL BASE: Intact. MAJOR SALIVARY GLANDS: No solid or cystic masses. No inflammatory changes. LYMPHADENOPATHY: No adenopathy. MUCOSAL MASSES OR ASYMMETRY: No mucosal masses or asymmetry. LARYNX/CORDS: No abnormal findings. LUNG APICES: See separate report. BONES: Intact. THYROID: Normal size. No masses. PARANASAL SINUSES: Clear. OTHER: No other significant finding. IMPRESSION: NO SIGNIFICANT FINDING IN THE SOFT TISSUES OF THE NECK. TECHNICAL DOCUMENTATION: JOB ID: [id number] Quality ID # [id number]: Final reports with documentation of one or more dose reduction techniques (e.g., Au tomated exposure control, adjustment of the mA and/or kV according to patient size, use of iterative reconstruction technique) 2010 [employer]- All Rights Reserved Reading location - IP/workstation name: [email or web address]
[2019-05-10] MEDS ORDERED: NORMAL SALINE 1000 ML 1,000 ML IV PRN (10:23)
[2019-05-10] MEDS ORDERED: ACETYLCYSTEINE 20% SOLN 6000 MG/30 ML VIAL PO SCH (11:00)
[2019-05-10] MEDS: AMLODIPINE BESYLATE 5 MG TABLET PO SCH (12:06)
[2019-05-10] MEDS: ATENOLOL 50 MG TABLET PO SCH (12:07)
[2019-05-10 12:34] LABS: INTERNATIONAL RATION (INR) 1.35; PROTHROMBIN TIME 16.8 SEC (11.4-15.4)
--- NOTE | 2019-05-10 14:15 | PDOC PROGRESS REPORT ---
Subjective Progress Note for:: 05/10/19 Subjective:: This is a 78 year old male with a past medical history of CAD with a past medical history of CAD with prior stenting x1, COPD, CKD, PVD with prior bilateral bypass, history of aortic graft placement hence was placed on chronic coumadin therapy, hypertension, and who presented with hemoptysis. 05/09: He had 3 more episodes of hemopptysis overnight but says they have been less bloody. He did coughed out a sightly bloody sputum upon encounter this morning. He says he forgot to report that he also has some dysphagia "as if something is stuck in my throat". Will order a neck CT. 05/10: He had one episode of bright red hemoptysis last night and reports he coughed up a dark red sputum this morning. He denies hematemesis or melena. Discussed with pulmonology, Dr. Ibarra who plans to proceed with bronchoscopy tomorrow. Also discussed possibility of an aortobronchial fistula given his history of aortic surgery. Discussed risks and benefits of pursuing a CTA including contrast induced nephropathy given his CKD. He expresses he would prefer to pursue the study to find the source of hemoptysis understanding the risk it may worsen his renal function. Reconsider CTA depending on findings on bronchoscopy. Reason For Visit: HEMOPTYSIS Physical Exam Vital Signs: Temp Pulse Resp BP Pulse Ox 98.6 F 68 15 108/36 L 95 05/10/19 08:00 05/10/19 10:13 05/10/19 10:13 05/10/19 08:00 05/10/19 10:13 Intake & Output 05/09/19 05/10/19 05/11/19 06:59 06:59 06:59 Intake Total 440 1140 Output Total 1500 Balance 440 -360 Weight 238 lb 15.697 oz General appearance: PRESENT: no acute distress, well-developed, well-nourished Head exam: PRESENT: atraumatic, normocephalic Eye exam: PRESENT: conjunctiva pink, EOMI, PERRLA. ABSENT: scleral icterus Ear exam: PRESENT: normal external ear exam Mouth exam: PRESENT: moist, tongue midline Neck exam: ABSENT: carotid bruit, JVD, lymphadenopathy, thyromegaly Respiratory exam: PRESENT: clear to auscultation audra. ABSENT: rales, rhonchi, wheezes Cardiovascular exam: PRESENT: RRR. ABSENT: diastolic murmur, rubs, systolic murmur Pulses: PRESENT: normal dorsalis pedis pul GI/Abdominal exam: PRESENT: normal bowel sounds, soft. ABSENT: distended, guarding, mass, organolmegaly, rebound, tenderness Rectal exam: PRESENT: deferred Neurological exam: PRESENT: alert, awake, oriented to person, oriented to place, oriented to time, oriented to situation, CN II-XII grossly intact. ABSENT: motor sensory deficit Results Laboratory Results: 05/10/19 04:00 05/10/19 04:00 05/09/19 05/10/19 05/10/19 04:14 04:00 04:00 WBC 6.5 RBC 4.24 L Hgb 12.6 L Hct 38.1 MCV 90 MCH 29.7 MCHC 33.0 RDW 15.1 H Plt Count 138 L Seg Neutrophils % 63.7 Lymphocytes % 24.2 Monocytes % 8.2 Eosinophils % 3.5 Basophils % 0.4 Absolute Neutrophils 4.1 Absolute Lymphocytes 1.6 Absolute Monocytes 0.5 Absolute Eosinophils 0.2 Absolute Basophils 0.0 Sodium 137.9 Potassium 4.9 Chloride 107 Carbon Dioxide 21 L Anion Gap 10 BUN 44 H Creatinine 1.65 H Est GFR ( Amer) 49 L Est GFR (Non-Af Amer) 41 L Glucose 136 H Calcium 9.3 TSH 1.48 05/08/19 14:30 Troponin I < 0.012 Impressions: Chest X-Ray 05/08/19 00:00 IMPRESSION: NO ACUTE FINDINGS. Chest CT 05/08/19 15:53 IMPRESSION: Coronary artery calcification. No significant finding in the lungs. No explanation for hemoptysis. Soft Tissue Neck CT 05/09/19 12:52 IMPRESSION: NO SIGNIFICANT FINDING IN THE SOFT TISSUES OF THE NECK. Assessment and Plan - Diagnosis (1) Hemoptysis Is this a current diagnosis for this admission?: Yes Plan: Chest x-ray is normal. Chest CT was also unremarkable. Discussed with patient and is amenable to holding off on Coumadin and aspirin for now. No indication for FFP at this time unless he has recurrence or persistence of hemoptysis. INR is 2.2. Will consult home for further recommendations. 05/09: He had 3 more episodes of hemoptysis overnight but says they have been less bloody. He says he forgot to report that he also has some dysphagia "as if something is stuck in my throat". Will order a neck CT. Await further pulm recommendations. 05/10: Chest CT and cervical CT have been unrevealing for source of hemoptysis. Discussed with pulmonology, Dr. Ibarra who plans to proceed with bronchoscopy tomorrow. Also discussed possibility of an aortobronchial fistula given his history of aortic surgery. Discussed risks and benefits of pursuing a CTA including contrast induced nephropathy given his CKD. He expresses he would prefer to pursue the study to find the source of hemoptysis understanding the risk it may worsen his renal function. Reconsider CTA depending on findings on bronchoscopy. (2) Congestive heart failure Is this a current diagnosis for this admission?: Yes Plan: Not in exacerbation. Requested records and labs/echo reports from [place]. (3) Chronic anticoagulation Is this a current diagnosis for this admission?: Yes Plan: Hold off on coumadin for now. (4) Hyperkalemia Is this a current diagnosis for this admission?: Yes Plan: Improved with holding ACEi and giving Veltassa. 05/10: Resolved. (5) Chronic obstructive pulmonary disease (COPD) Is this a current diagnosis for this admission?: Yes Plan: Not in exacerbation. Breathing treatments as needed. (6) CAD (coronary artery disease) Is this a current diagnosis for this admission?: Yes Plan: Stable. Aspirin on hold due to hemoptysis. (7) CKD (chronic kidney disease), stage III Is this a current diagnosis for this admission?: Yes Plan: Avoid nephrotoxic agents. We will hold off on lisinopril due to hyperkalemia. (8) Hypothyroidism Is this a current diagnosis for this admission?: Yes Plan: Resume synthroid. - Time Time Spent with patient: 25-34 minutes
[2019-05-10] MEDS: ATORVASTATIN CALCIUM 40 MG TABLET PO SCH (22:16)
[2019-05-11] MEDS: LEVOTHYROXINE SODIUM 0.025 MG TABLET PO SCH (05:33)
[2019-05-11 07:58] LABS: ABSOLUTE EOSINOPHILS # (AUTO) 0.3 10^3/uL (0.0-0.6); ABSOLUTE LYMPHOCYTES (AUTO) 1.4 10^3/uL (0.5-4.7); ABSOLUTE MONOCYTES (AUTO) 0.5 10^3/uL (0.1-1.4); BASOPHILS % (AUTO) 0.4 % (0-2); EOSINOPHILS % (AUTO) 4.7 % (0-6); HEMATOCRIT 37.9 % (37.9-51.0); HEMOGLOBIN 12.5 g/dL (13.5-17.0); LYMPHOCYTES % (AUTO) 22.6 % (13-45); MEAN CORPUSCULAR HEMOGLOBIN 29.8 pg (27.0-33.4); MEAN CORPUSCULAR VOLUME 90 fl (80-97); MONOCYTES % (AUTO) 8.3 % (3-13); PLATELET COUNT 160 10^3/uL (150-450); RED BLOOD COUNT 4.19 10^6/uL (4.35-5.55); RED CELL DISTRIBUTION WIDTH 15.2 % (11.5-14.0); TOTAL CELLS COUNTED % (AUTO) 100 %; WHITE BLOOD COUNT 6.2 10^3/uL (4.0-10.5)
[2019-05-11] MEDS ORDERED: ALBUTEROL SULFATE HFA (90 MCG/PUFF) 200 PUFF/8.5 GM MDI IH PRN (08:08)
[2019-05-11] MEDS ORDERED: METHOCARBAMOL 750 MG TABLET PO PRN (08:08)
[2019-05-11 08:10] LABS: ANION GAP 12 (5-19); BLOOD UREA NITROGEN 44 mg/dL (7-20); CALCIUM 9.4 mg/dL (8.4-10.2); CARBON DIOXIDE 21 mmol/L (22-30); CHLORIDE 109 mmol/L (98-107); GLUCOSE 124 mg/dL (75-110); POTASSIUM 5.1 mmol/L (3.6-5.0)
[2019-05-11 08:13] LABS: INTERNATIONAL RATION (INR) 1.19; PROTHROMBIN TIME 15.2 SEC (11.4-15.4)
[2019-05-11] MEDS: ATENOLOL 50 MG TABLET PO SCH (09:22)
[2019-05-11] MEDS: AMLODIPINE BESYLATE 5 MG TABLET PO SCH (09:22)
[2019-05-11] MEDS: CETIRIZINE 10 MG TABLET PO SCH (09:23)
[2019-05-11] MEDS: TRAMADOL HCL 50 MG TABLET PO PRN ×2 (09:25→21:10)
[2019-05-11] MEDS ORDERED: (PENDING PHARMACY ID) (Atenolol [Tenormin 100 Mg Tablet] 100 MG) PO SCH (10:00)
--- NOTE | 2019-05-11 10:01 | PDOC PROGRESS REPORT ---
Subjective Progress Note for:: 05/11/19 Subjective:: 78 year old male with a past medical history of CAD with a past medical history of CAD with prior stenting x1, COPD, CKD, PVD with prior bilateral bypass, history of aortic graft placement hence was placed on chronic coumadin therapy, hypertension, and who presented with hemoptysis. 05/09: He had 3 more episodes of hemopptysis overnight but says they have been less bloody. He did coughed out a sightly bloody sputum upon encounter this morning. He says he forgot to report that he also has some dysphagia "as if something is stuck in my throat". Will order a neck CT. 05/10: He had one episode of bright red hemoptysis last night and reports he coughed up a dark red sputum this morning. He denies hematemesis or melena. Discussed with pulmonology, Dr. Ibarra who plans to proceed with bronchoscopy tomorrow. Also discussed possibility of an aortobronchial fistula given his history of aortic surgery. Discussed risks and benefits of pursuing a CTA including contrast induced nephropathy given his CKD. He expresses he would prefer to pursue the study to find the source of hemoptysis understanding the risk it may worsen his renal function. Reconsider CTA depending on findings on bronchoscopy. 05/[id number]-[id number]-old male with history of coronary artery disease status post stent placement x1, COPD, CKD, peripheral vascular disease with bilateral bypass, aortic graft placement on chronic Coumadin therapy, hypertension admitted with hemoptysis. CT chest was negative for acute pathology. Is going for bronchoscopy today. He is n.p.o. Plan to do the CT of the chest with IV contrast later on today. Symptomatic comfortable in the bed communicating well pulse ox is 93% on room air. Max is 98.5. Reason For Visit: HEMOPTYSIS Physical Exam Vital Signs: Temp Pulse Resp BP Pulse Ox 98.5 F 82 17 120/41 L 93 05/11/19 01:20 05/11/19 07:00 05/11/19 01:20 05/11/19 01:20 05/11/19 01:20 Intake & Output 05/10/19 05/11/19 05/12/19 06:59 06:59 06:59 Intake Total 1140 1100 Output Total 1500 Balance -360 1100 Weight 92 kg General appearance: PRESENT: no acute distress Head exam: PRESENT: atraumatic Eye exam: PRESENT: PERRLA Mouth exam: PRESENT: moist, tongue midline Teeth exam: PRESENT: poor dentation Neck exam: ABSENT: carotid bruit, JVD, lymphadenopathy, thyromegaly Respiratory exam: PRESENT: clear to auscultation audra. ABSENT: rales, rhonchi, wheezes Cardiovascular exam: PRESENT: RRR. ABSENT: diastolic murmur, rubs, systolic murmur Pulses: PRESENT: normal dorsalis pedis pul GI/Abdominal exam: PRESENT: normal bowel sounds, soft. ABSENT: distended, guarding, mass, organolmegaly, rebound, tenderness Rectal exam: PRESENT: deferred Extremities exam: PRESENT: full ROM. ABSENT: calf tenderness, clubbing, pedal edema Neurological exam: PRESENT: alert Psychiatric exam: PRESENT: appropriate affect, normal mood. ABSENT: homicidal ideation, suicidal ideation Results Laboratory Results: 05/11/19 07:18 05/11/19 07:18 05/11/19 05/11/19 07:18 07:18 WBC 6.2 RBC 4.19 L Hgb 12.5 L Hct 37.9 MCV 90 MCH 29.8 MCHC 33.0 RDW 15.2 H Plt Count 160 Seg Neutrophils % 64.0 Lymphocytes % 22.6 Monocytes % 8.3 Eosinophils % 4.7 Basophils % 0.4 Absolute Neutrophils 4.0 Absolute Lymphocytes 1.4 Absolute Monocytes 0.5 Absolute Eosinophils 0.3 Absolute Basophils 0.0 Sodium 142.4 Potassium 5.1 H Chloride 109 H Carbon Dioxide 21 L Anion Gap 12 BUN 44 H Creatinine 1.81 H Est GFR ( Amer) 44 L Est GFR (Non-Af Amer) 36 L Glucose 124 H Calcium 9.4 05/08/19 14:30 Troponin I < 0.012 Impressions: Chest X-Ray 05/08/19 00:00 IMPRESSION: NO ACUTE FINDINGS. Chest CT 05/08/19 15:53 IMPRESSION: Coronary artery calcification. No significant finding in the lungs. No explanation for hemoptysis. Soft Tissue Neck CT 05/09/19 12:52 IMPRESSION: NO SIGNIFICANT FINDING IN THE SOFT TISSUES OF THE NECK. Assessment and Plan - Diagnosis (1) Hemoptysis Is this a current diagnosis for this admission?: Yes Plan: Chest x-ray is normal. Chest CT was also unremarkable. Discussed with patient and is amenable to holding off on Coumadin and aspirin for now. No indication for FFP at this time unless he has recurrence or persistence of hemoptysis. INR is 2.2. Will consult home for further recommendations. 05/09: He had 3 more episodes of hemoptysis overnight but says they have been less bloody. He says he forgot to report that he also has some dysphagia "as if something is stuck in my throat". Will order a neck CT. Await further pulm recommendations. 05/10: Chest CT and cervical CT have been unrevealing for source of hemoptysis. Discussed with pulmonology, Dr. Ibarra who plans to proceed with bronchoscopy tomorrow. Also discussed possibility of an aortobronchial fistula given his history of aortic surgery. Discussed risks and benefits of pursuing a CTA including contrast induced nephropathy given his CKD. He expresses he would prefer to pursue the study to find the source of hemoptysis understanding the risk it may worsen his renal function. Reconsider CTA depending on findings on bronchoscopy. 05/11/2019-no complaints of coughing up blood anymore. Dr. Ibarra is on board. Patient is going for bronchoscopy. Plan to do the CT of the chest today. INR is 1.19. Hemoglobin is stable around 12.5. Comfortably in the bed communicating well. (2) Congestive heart failure Is this a current diagnosis for this admission?: Yes Plan: Not in exacerbation. Requested records and labs/echo reports from [place]. 05/11/2019-patient blood pressure today is 120/41 euvolemic. Waiting for the echo report from [place]. Based on the information I got patient most likely has a chronic systolic heart failure. (3) Chronic anticoagulation Is this a current diagnosis for this admission?: Yes Plan: Hold off on coumadin for now. 05/11/2019-patient came in with coughing up blood INR is 1.19 he is off Coumadin for the last 3 to 4 days. Plan is to check PT/INR on daily basis. (4) Chronic obstructive pulmonary disease (COPD) Is this a current diagnosis for this admission?: Yes Plan: Not in exacerbation. Breathing treatments as needed. 05/11/2019-pulse ox is 93% on room air. Comfortably in the bed. Chest bilateral entry was decreased no wheezing no crepitations. Plan is to continue the present management. (5) CKD (chronic kidney disease), stage III Is this a current diagnosis for this admission?: Yes Plan: Avoid nephrotoxic agents. We will hold off on lisinopril due to hyperkalemia. 05/11/2019-patient creatinine is 1.8 stable. Patient's baseline creatinine is around 1.75. Urinary output is 1500 cc in the last 24 hours. (6) Hyperkalemia Is this a current diagnosis for this admission?: Yes Plan: Improved with holding ACEi and giving Veltassa. 05/10: Resolved. 05/11/2019-serum potassium level is 5.1 patient is on Veltassa. Off lisinopril. - Time Time Spent with patient: 25-34 minutes Medications reviewed and adjusted accordingly: Yes Anticipated discharge: Home
[2019-05-11] MEDS: ATORVASTATIN CALCIUM 40 MG TABLET PO SCH (21:06)
[2019-05-12 07:04] LABS: ABSOLUTE EOSINOPHILS # (AUTO) 0.3 10^3/uL (0.0-0.6); ABSOLUTE LYMPHOCYTES (AUTO) 1.7 10^3/uL (0.5-4.7); ABSOLUTE MONOCYTES (AUTO) 0.6 10^3/uL (0.1-1.4); ABSOLUTE NEUT (AUTO) 3.8 10^3/uL (1.7-8.2); BASOPHILS % (AUTO) 0.6 % (0-2); EOSINOPHILS % (AUTO) 4.4 % (0-6); HEMATOCRIT 38.4 % (37.9-51.0); HEMOGLOBIN 12.5 g/dL (13.5-17.0); LYMPHOCYTES % (AUTO) 26.6 % (13-45); MEAN CORPUSCULAR HEMOGLOBIN 29.5 pg (27.0-33.4); MEAN CORPUSCULAR HGB CONC 32.7 g/dL (32.0-36.0); MEAN CORPUSCULAR VOLUME 90 fl (80-97); MONOCYTES % (AUTO) 8.6 % (3-13); PLATELET COUNT 146 10^3/uL (150-450); RED BLOOD COUNT 4.25 10^6/uL (4.35-5.55); SEGMENTED NEUTROPHILS % (AUTO) 59.8 % (42-78); TOTAL CELLS COUNTED % (AUTO) 100 %; WHITE BLOOD COUNT 6.4 10^3/uL (4.0-10.5)
[2019-05-12 07:26] LABS: ALBUMIN 3.9 g/dL (3.5-5.0); ALKALINE PHOSPHATASE 113 U/L (38-126); ANION GAP 9 (5-19); ASPARTATE AMINO TRANSFERASE 28 U/L (17-59); BILIRUBIN,DIRECT 0.4 mg/dL (0.0-0.4); BILIRUBIN,TOTAL 0.5 mg/dL (0.2-1.3); BLOOD UREA NITROGEN 41 mg/dL (7-20); CALCIUM 9.3 mg/dL (8.4-10.2); CARBON DIOXIDE 22 mmol/L (22-30); CHLORIDE 110 mmol/L (98-107); GLUCOSE 129 mg/dL (75-110); POTASSIUM 5.1 mmol/L (3.6-5.0); TOTAL PROTEIN 6.9 g/dL (6.3-8.2)
[2019-05-12] MEDS: LEVOTHYROXINE SODIUM 0.025 MG TABLET PO SCH (08:35)
[2019-05-12] MEDS: TRAMADOL HCL 50 MG TABLET PO PRN (08:56)
[2019-05-12] MEDS: ATENOLOL 50 MG TABLET PO SCH (09:18)
[2019-05-12] MEDS: AMLODIPINE BESYLATE 5 MG TABLET PO SCH (09:18)
[2019-05-12] MEDS: CETIRIZINE 10 MG TABLET PO SCH (09:19)
[2019-05-12] MEDS ORDERED: ONDANSETRON HCL INJ/PF 4 MG/2 ML SDV ONE (10:03)
[2019-05-12] MEDS ORDERED: DIPHENHYDRAMINE HCL 50 MG/ML VIAL ONE (10:03)
[2019-05-12] MEDS ORDERED: FENTANYL CITRATE INJ/PF 100 MCG/2 ML AMPUL ONE (10:03)
[2019-05-12] MEDS ORDERED: GLUCAGON,HUMAN RECOMB 1 MG INJ ONE (10:04)
[2019-05-12] MEDS ORDERED: FLUMAZENIL INJ 0.5 MG/5 ML VIAL ONE (10:04)
[2019-05-12] MEDS ORDERED: EPINEPHRINE INJ 1 MG/10 ML DISP.SYRIN ONE (10:04)
[2019-05-12] MEDS ORDERED: NALOXONE HCL INJ/PF 0.4 MG/1 ML SDV ONE (10:04)
[2019-05-12] MEDS ORDERED: MIDAZOLAM 2 MG/2 ML INJ ONE (10:04)
[2019-05-12] MEDS ORDERED: LIDOCAINE 2% JELLY 30 ML TUBE ONE (10:15)
[2019-05-12] MEDS ORDERED: LIDOCAINE 4% INJ/PF (40 MG/ML) 5 ML AMPUL ONE (10:15)
[2019-05-12] MEDS ORDERED: LIDOCAINE 2% JELLY 5 ML TUBE ONE (10:15)
[2019-05-12] MEDS ORDERED: LIDOCAINE 4% INJ/PF (40 MG/ML) 5 ML AMPUL NEB ONE (10:27)
[2019-05-12] MEDS ORDERED: LIDOCAINE 2% VISCOUS SOLN 20 ML UDCUP PO ONE (10:28)
[2019-05-12] MEDS ORDERED: MIDAZOLAM 2 MG/2 ML INJ IV ONE (10:34)
[2019-05-12] MEDS ORDERED: FENTANYL CITRATE INJ/PF 100 MCG/2 ML AMPUL INJ ONE (10:34)
--- NOTE | 2019-05-12 11:14 | PDOC PROGRESS REPORT ---
Subjective Progress Note for:: 05/12/19 Subjective:: 78 year old male with a past medical history of CAD with a past medical history of CAD with prior stenting x1, COPD, CKD, PVD with prior bilateral bypass, history of aortic graft placement hence was placed on chronic coumadin therapy, hypertension, and who presented with hemoptysis. 05/09: He had 3 more episodes of hemopptysis overnight but says they have been less bloody. He did coughed out a sightly bloody sputum upon encounter this morning. He says he forgot to report that he also has some dysphagia "as if something is stuck in my throat". Will order a neck CT. 05/10: He had one episode of bright red hemoptysis last night and reports he coughed up a dark red sputum this morning. He denies hematemesis or melena. Discussed with pulmonology, Dr. Ibarra who plans to proceed with bronchoscopy tomorrow. Also discussed possibility of an aortobronchial fistula given his history of aortic surgery. Discussed risks and benefits of pursuing a CTA including contrast induced nephropathy given his CKD. He expresses he would prefer to pursue the study to find the source of hemoptysis understanding the risk it may worsen his renal function. Reconsider CTA depending on findings on bronchoscopy. 05/11/[id number]-pszo-old male with history of coronary artery disease status post stent placement x1, COPD, CKD, peripheral vascular disease with bilateral bypass, aortic graft placement on chronic Coumadin therapy, hypertension admitted with hemoptysis. CT chest was negative for acute pathology. Is going for bronchoscopy today. He is n.p.o. Plan to do the CT of the chest with IV contrast later on today. Symptomatic comfortable in the bed communicating well pulse ox is 93% on room air. Max is 98.5. 05/12/[id number]-rwpp-old male with multiple medical problems including coronary artery disease with stent placement, COPD, CKD, peripheral vascular disease with bilateral bypasses history of aortic graft placement on chronic Coumadin therapy admitted for hemoptysis. Patient is off Coumadin. He went for bronchoscopy today. After the bronchoscopy I will talk to Dr. Ibarra and see if the patient need a CT of the chest. We will try to do the CT of the chest yesterday but we are unable to get a bigger IV access to give her contrast. No acute events in the last 24 hours. Afebrile. Reason For Visit: HEMOPTYSIS Physical Exam Vital Signs: Temp Pulse Resp BP Pulse Ox 97.3 F 80 16 117/51 L 94 05/12/19 07:21 05/12/19 07:21 05/12/19 07:21 05/12/19 07:21 05/12/19 07:21 Intake & Output 05/11/19 05/12/19 05/13/19 06:59 06:59 06:59 Intake Total 1100 837 Balance 1100 837 Weight 108.5 kg 109.9 kg General appearance: PRESENT: no acute distress Head exam: PRESENT: atraumatic Eye exam: PRESENT: PERRLA Ear exam: PRESENT: normal external ear exam Mouth exam: PRESENT: neck supple Teeth exam: PRESENT: poor dentation Neck exam: ABSENT: carotid bruit, JVD, lymphadenopathy, thyromegaly Respiratory exam: PRESENT: decreased breath sounds Cardiovascular exam: PRESENT: RRR. ABSENT: diastolic murmur, rubs, systolic murmur GI/Abdominal exam: PRESENT: normal bowel sounds, soft. ABSENT: distended, guarding, mass, organolmegaly, rebound, tenderness Rectal exam: PRESENT: deferred Extremities exam: PRESENT: full ROM. ABSENT: calf tenderness, clubbing, pedal edema Neurological exam: PRESENT: alert, awake, oriented to person, oriented to place, oriented to time, oriented to situation, CN II-XII grossly intact. ABSENT: motor sensory deficit Psychiatric exam: PRESENT: appropriate affect, normal mood. ABSENT: homicidal ideation, suicidal ideation Results Laboratory Results: 05/12/19 06:49 05/12/19 06:49 05/12/19 05/12/19 06:49 06:49 WBC 6.4 RBC 4.25 L Hgb 12.5 L Hct 38.4 MCV 90 MCH 29.5 MCHC 32.7 RDW 15.0 H Plt Count 146 L Seg Neutrophils % 59.8 Lymphocytes % 26.6 Monocytes % 8.6 Eosinophils % 4.4 Basophils % 0.6 Absolute Neutrophils 3.8 Absolute Lymphocytes 1.7 Absolute Monocytes 0.6 Absolute Eosinophils 0.3 Absolute Basophils 0.0 Sodium 141.2 Potassium 5.1 H Chloride 110 H Carbon Dioxide 22 Anion Gap 9 BUN 41 H Creatinine 1.61 H Est GFR ( Amer) 50 L Est GFR (Non-Af Amer) 42 L Glucose 129 H Calcium 9.3 Magnesium 1.7 Total Bilirubin 0.5 AST 28 Alkaline Phosphatase 113 Total Protein 6.9 Albumin 3.9 05/08/19 14:30 Troponin I < 0.012 Impressions: Chest X-Ray 05/08/19 00:00 IMPRESSION: NO ACUTE FINDINGS. Chest CT 05/08/19 15:53 IMPRESSION: Coronary artery calcification. No significant finding in the lungs. No explanation for hemoptysis. Soft Tissue Neck CT 05/09/19 12:52 IMPRESSION: NO SIGNIFICANT FINDING IN THE SOFT TISSUES OF THE NECK. Assessment and Plan - Diagnosis (1) Hemoptysis Is this a current diagnosis for this admission?: Yes Plan: Chest x-ray is normal. Chest CT was also unremarkable. Discussed with patient and is amenable to holding off on Coumadin and aspirin for now. No indication for FFP at this time unless he has recurrence or persistence of hemoptysis. INR is 2.2. Will consult home for further recommendations. 05/09: He had 3 more episodes of hemoptysis overnight but says they have been less bloody. He says he forgot to report that he also has some dysphagia "as if something is stuck in my throat". Will order a neck CT. Await further pulm rec ommendations. 05/10: Chest CT and cervical CT have been unrevealing for source of hemoptysis. Discussed with pulmonology, Dr. Ibarra who plans to proceed with bronchoscopy tomorrow. Also discussed possibility of an aortobronchial fistula given his history of aortic surgery. Discussed risks and benefits of pursuing a CTA including contrast induced nephropathy given his CKD. He expresses he would p refer to pursue the study to find the source of hemoptysis understanding the risk it may worsen his renal function. Reconsider CTA depending on findings on bronchoscopy. 05/11/2019-no complaints of coughing up blood anymore. Dr. Ibarra is on board. Patient is going for bronchoscopy. Plan to do the CT of the chest today. INR is 1.19. Hemoglobin is stable around 12.5. Comfortably in the bed communicating well. 05/12/2019-patient admitted with hemoptysis is going for bronchoscopy today. Obi liu is on Coumadin at home which was on hold. INR Yesterday's 1.19. Once the bronchoscopy was done I am going to talk to Dr. Ibarra to see if there is need for CT of the chest (2) Congestive heart failure Is this a current diagnosis for this admission?: Yes Plan: Not in exacerbation. Requested records and labs/echo reports from [place]. 05/11/2019-patient blood pressure today is 120/41 euvolemic. Waiting for the echo report from [place]. Based on the information I got patient most likely has a chronic systolic heart failure. 05/12/2019-patient blood pressure today is 117/51 stable. Patient has a chronic systolic heart failure. Euvolemic. (3) Chronic anticoagulation Is this a current diagnosis for this admission?: Yes Plan: Hold off on coumadin for now. 05/11/2019-patient came in with coughing up blood INR is 1.19 he is off Coumadin for the last 3 to 4 days. Plan is to check PT/INR on daily basis. 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 This is as per the patient. Because the patient was admitted with hemoptysis Coumadin is on hold. (4) Chronic obstructive pulmonary disease (COPD) Is this a current diagnosis for this admission?: Yes Plan: Not in exacerbation. Breathing treatments as needed. 05/11/2019-pulse ox is 93% on room air. Comfortably in the bed. Chest bilateral entry was decreased no wheezing no crepitations. Plan is to continue the present management. 05/12/2019-patient has history of COPD no complaints of shortness of breath no wheezing on examination pulse ox is 94% on room air. Plan is to continue the present management. (5) CKD (chronic kidney disease), stage III Is this a current diagnosis for this admission?: Yes Plan: Avoid nephrotoxic agents. We will hold off on lisinopril due to hyperkalemia. 05/11/2019-patient creatinine is 1.8 stable. Patient's baseline creatinine is around 1.75. Urinary output is 1500 cc in the last 24 hours. 05/12/2019-patient latest creatinine is 1.61 stable. Baseline creatinine is around 1.75. Nonoliguric. (6) Hyperkalemia Is this a current diagnosis for this admission?: Yes Plan: Improved with holding ACEi and giving Veltassa. 05/10: Resolved. 05/11/2019-serum potassium level is 5.1 patient is on Veltassa. Off lisinopril. 05/12/2019-serum potassium is 5.1 borderline normal. Patient is receiving Veltassa. JEANNE inhibitors are on hold. - Time Time Spent with patient: 25-34 minutes Medications reviewed and adjusted accordingly: Yes Anticipated discharge: Home
[2019-05-12 12:10] LABS: FLUID SOURCE LUNG; FLUID TYPE BRONCHIAL WASH
[2019-05-12 12:11] LABS: FLUID COLOR RED; FLUID VISCOSITY LIQUID
[2019-05-12 12:51] LABS: FLUID APPEARANCE SLIGHTLY HAZY
--- NOTE | 2019-05-12 13:35 | Operative Report ---
Operative Report DATE OF SURGERY: 05/12/19 Operative Report: 58-year-old male persistent hemoptysis over the last 5 to 6 days initially patient was over anticoagulated but has not been on anticoagulants of 5 to 6 days and has persistent hemoptysis. Patient was kept n.p.o. 12 hours prior to procedure he was taken to endoscopy suite where he was given nebulized lidocaine as well as some Cetacaine to his oropharynx and his ENT size [place] scope was tracheobronchial tree was explored there were no abnormalities of his vocal cords visualized there were no tracheal abnormalities there was no splaying of the nida there is corrugated mucosa on the right mainstem bronchus right upper lobe right bronchus intermedius right middle lobe and right lower lobes were within normal limits there is a trace of blood in the left mainstem bronchus as there was some bleeding from the left upper lobe subsegment all the submitted segments were evaluated and no masses or other source of the bleeding could be determined except for some extremely friable submucosal areas. There are no no abnormalities of the lingula or left lower lobe noted. Patient tolerated procedures well his postprocedure SaO2 was 94% PREOPERATIVE DIAGNOSIS: hemoptysis POSTOPERATIVE DIAGNOSIS: Same OPERATION: Fiberoptic bronchoscopy with bronchoalveolar lavage SURGEON: BRIT MARTINEZ ANESTHESIA: Moderate Sedation TISSUE REMOVED OR ALTERED: n/a COMPLICATIONS: None
--- NOTE | 2019-05-12 13:43 | PDOC CONSULTATION ---
Consultation Consult Date: 05/12/19 Attending physician:: PAULINA THOMASON Provider Consulted: BRIT MARTINEZ Consult reason:: hemoptysis History of Present Illness Admission Date/PCP: 05/08/19 16:19 VASILIY NICHOLSON MD History of Present Illness: SERGO DE LA VEGA is a 78 year old male presented to the emergency room with 3 days of increasing hemoptysis and some short of breath with exertion he denies nausea vomiting diarrhea fevers chills rhinorrhea sore throat chest pain he had extensive thoracic surgery in the past PPD was negative dates unknown he said no history of chronic lung disease as a child or adolescent he admits to exposure to passive smoke as a child as well as an adult. He has no occupational history of exposure to potential respiratory toxins no pets no recent travel no tightness in his chest sleeps on 2 pillows no PND no nocturnal cough no edema he has been told that he snores denies restless sleep nocturia 1-2 times per night admits to unrestful sleep but etc. denies excessive daytime somnolence Past Medical History Cardiac Medical History: Reports: Congestive Heart Failure, Coronary Artery Disease, Myocardial Infarction - 1997?, Hyperlipidema, Hypertension Pulmonary Medical History: Reports: Asthma - as child, Chronic Obstructive Pulmonary Disease (COPD) Denies: Tuberculosis GI Medical History: Reports: Hiatal Hernia Musculoskeltal Medical History: Reports: Arthritis Psychiatric Medical History: Denies: Depression Past Surgical History Past Surgical History: Reports: Appendectomy - 1963, Cholecystectomy - 2008 Denies: Pacemaker Social History Smoking Status: Former Smoker Cigarettes Packs Per Day: 3 Cigars Per Day: 0 Pipes Per Day: 0 Number of Years Smokin Last Time Smoked: 09/22/1998 Passive smoke exposure as: Both Frequency of Alcohol Use: None Hx Recreational Drug Use: No Hx Prescription Drug Abuse: No Do you have pets?: No Have you had any respiratory illnesses as a child?: No Have you been exposed to any sick contacts recently?: No Have you had any recent respiratory illnesses?: No Have you travelled outside of [place] in the past 12 months?: No - Advance Directive Resuscitation Status: Full Code Family History Family History: CAD, COPD, CVA Parental Family History Reviewed: Yes Children Family History Reviewed: Yes Sibling(s) Family History Reviewed.: Yes Medication/Allergy Home Medications: Acetaminophen [Pain Reliever] 500 mg PO TID PRN 03/24/14 Tramadol HCl 100 mg PO BID 03/24/14 Warfarin Sodium 7.5 mg PO QHS 03/24/14 Aspirin [Ecotrin] 81 mg PO DAILY 07/12/14 Albuterol Sulfate [Proair Hfa Inhalation Aerosol 8.5 gm Mdi] 2 puff IH Q6HP PRN 05/10/19 Atenolol [Tenormin 100 mg Tablet] 100 mg PO DAILY 05/10/19 Atorvastatin Calcium [Lipitor 80 mg Tablet] 40 mg PO DAILY 05/10/19 Cetirizine HCl [Zyrtec 10 mg Tablet] 10 mg PO DAILY 05/10/19 Levothyroxine Sodium [Synthroid 50 Mcg Tablet] 50 mcg PO DAILY 05/10/19 Lisinopril/Hydrochlorothiazide [Lisinopril-Hctz 10-12.5 mg Tab] 1 each PO DAILY 05/10/19 Methocarbamol [Robaxin 750 mg Tablet] 750 mg PO Q8HP PRN 05/10/19 Allergies/Adverse Reactions: No Known Allergies Allergy (Verified 05/08/19 13:43) Review of Systems Constitutional: ABSENT: anorexia, chills, fatigue, fever(s), headache(s) Eyes: ABSENT: visual disturbances Ears: ABSENT: hearing changes Nose, Mouth, and Throat: ABSENT: mouth pain, sore throat Cardiovascular: PRESENT: dyspnea on exertion. ABSENT: chest pain, edema, orthropnea, palpitations Respiratory: PRESENT: cough, hemoptysis, sputum Gastrointestinal: PRESENT: abdominal pain, bloating, coffee ground emesis, constipation, diarrhea, dysphagia, heartburn, hematemesis, hematochezia, melena, nausea, vomiting Genitourinary: PRESENT: nocturia. ABSENT: dysuria, hematuria Musculoskeletal: ABSENT: deformity, joint swelling Integumentary: ABSENT: lesions, pruritus, rash Neurological: ABSENT: abnormal gait, abnormal movements, abnormal speech, confusion, convulsions, focal weakness, frequent falls, lack of coordination, [place] loss Psychiatric: ABSENT: hallucinations, homidical ideation, suicidal ideation Endocrine: ABSENT: cold intolerance, heat intolerance, polydipsia, polyphagia Hematologic/Lymphatic: PRESENT: easy bleeding, easy bruising. ABSENT: lymphadenopathy Allergic/Immunologic: ABSENT: seasonal rhinorrhea Physical Exam Vital Signs: Temp Pulse Resp BP Pulse Ox 98.6 F 98 16 108/36 L 93 05/10/19 08:00 05/10/19 08:00 05/10/19 08:00 05/10/19 08:00 05/10/19 08:00 Intake & Output 05/09/19 05/10/19 05/11/19 06:59 06:59 06:59 Intake Total 440 1140 Output Total 1500 Balance 440 -360 Weight 108.4 kg General appearance: PRESENT: no acute distress, cooperative, disheveled, obese Head exam: PRESENT: atraumatic, normocephalic Eye exam: PRESENT: conjunctiva pale, EOMI. ABSENT: nystagmus, periorbital swelling, scleral icterus Mouth exam: PRESENT: dry mucosa, neck supple, tongue midline Teeth exam: PRESENT: edentulous Neck exam: ABSENT: carotid bruit, full ROM, JVD, lymphadenopathy, meningismus, tenderness, thyromegaly, tracheal deviation, tracheostomy, other Respiratory exam: PRESENT: decreased breath sounds, prolonged expiratory phas, rhonchi, unlabored. ABSENT: rales, retraction, stridor, tachypnea Cardiovascular exam: PRESENT: RRR, +S1, +S2. ABSENT: tachycardia Pulses: PRESENT: normal radial pulses GI/Abdominal exam: PRESENT: hernia, normal bowel sounds, soft. ABSENT: mass, tenderness Extremities exam: ABSENT: calf tenderness, clubbing, joint swelling, tenderness Musculoskeletal exam: ABSENT: deformity, dislocation Neurological exam: PRESENT: alert, awake Psychiatric exam: PRESENT: appropriate affect Skin exam: PRESENT: dry, warm Results Laboratory Results: 05/10/19 04:00 05/10/19 04:00 05/09/19 05/10/19 05/10/19 04:14 04:00 04:00 WBC 6.5 RBC 4.24 L Hgb 12.6 L Hct 38.1 MCV 90 MCH 29.7 MCHC 33.0 RDW 15.1 H Plt Count 138 L Seg Neutrophils % 63.7 Lymphocytes % 24.2 Monocytes % 8.2 Eosinophils % 3.5 Basophils % 0.4 Absolute Neutrophils 4.1 Absolute Lymphocytes 1.6 Absolute Monocytes 0.5 Absolute Eosinophils 0.2 Absolute Basophils 0.0 Sodium 137.9 Potassium 4.9 Chloride 107 Carbon Dioxide 21 L Anion Gap 10 BUN 44 H Creatinine 1.65 H Est GFR ( Amer) 49 L Est GFR (Non-Af Amer) 41 L Glucose 136 H Calcium 9.3 TSH 1.48 05/08/19 14:30 Troponin I < 0.012 Impressions: Chest X-Ray 05/08/19 00:00 IMPRESSION: NO ACUTE FINDINGS. Chest CT 05/08/19 15:53 IMPRESSION: Coronary artery calcification. No significant finding in the lungs. No explanation for hemoptysis. Soft Tissue Neck CT 05/09/19 12:52 IMPRESSION: NO SIGNIFICANT FINDING IN THE SOFT TISSUES OF THE NECK. Assessment & Plan - Diagnosis (1) Chronic anticoagulation Is this a current diagnosis for this admission?: Yes Plan: Due to prior deep vein thrombosis and pulmonary emboli (2) Hemoptysis Is this a current diagnosis for this admission?: Yes Plan: Presentation appears to be over anticoagulated if when corrected hemoptysis persist will consider fiberoptic bronchoscopy (3) Chronic obstructive pulmonary disease (COPD) Is this a current diagnosis for this admission?: Yes Plan: Generic Name Dose Route Start Last Admin Trade Name Freq PRN Reason Stop Dose Admin Albuterol 2 puff 05/11/19 08:08 Proair Hfa Inhalation Aerosol 8.5 Gm Mdi IH 06/10/19 08:07 Q6HP PRN SHORTNESS OF BREATH Albuterol/Ipratropium 3 ml 05/08/19 18:25 05/09/19 15:52 Duoneb 3 Ml Ampul NEB 06/07/19 18:24 3 ml [id number] PRN SHORTNESS OF BREATH (4) HTN (hypertension) Qualifiers: Hypertension type: essential hypertension Qualified Code(s): I10 - Essentia l (primary) hypertension Is this a current diagnosis for this admission?: Yes Plan: Stable at this time
[2019-05-12] MEDS: ATORVASTATIN CALCIUM 40 MG TABLET PO SCH (21:42)
[2019-05-13] MEDS: LEVOTHYROXINE SODIUM 0.025 MG TABLET PO SCH (05:27)
[2019-05-13] MEDS: AMLODIPINE BESYLATE 5 MG TABLET PO SCH (09:30)
[2019-05-13] MEDS: ATENOLOL 50 MG TABLET PO SCH (09:30)
[2019-05-13] MEDS: CETIRIZINE 10 MG TABLET PO SCH (09:30)
--- NOTE | 2019-05-13 09:56 | PDOC PROGRESS REPORT ---
Subjective Progress Note for:: 05/13/19 Subjective:: 78 year old male with a past medical history of CAD with a past medical history of CAD with prior stenting x1, COPD, CKD, PVD with prior bilateral bypass, history of aortic graft placement hence was placed on chronic coumadin therapy, hypertension, and who presented with hemoptysis. 05/09: He had 3 more episodes of hemopptysis overnight but says they have been less bloody. He did coughed out a sightly bloody sputum upon encounter this morning. He says he forgot to report that he also has some dysphagia "as if something is stuck in my throat". Will order a neck CT. 05/10: He had one episode of bright red hemoptysis last night and reports he coughed up a dark red sputum this morning. He denies hematemesis or melena. Discussed with pulmonology, Dr. Ibarra who plans to proceed with bronchoscopy tomorrow. Also discussed possibility of an aortobronchial fistula given his history of aortic surgery. Discussed risks and benefits of pursuing a CTA including contrast induced nephropathy given his CKD. He expresses he would prefer to pursue the study to find the source of hemoptysis understanding the risk it may worsen his renal function. Reconsider CTA depending on findings on bronchoscopy. 05/11/[id number]-old male with history of coronary artery disease status post stent placement x1, COPD, CKD, peripheral vascular disease with bilateral bypass, aortic graft placement on chronic Coumadin therapy, hypertension admitted with hemoptysis. CT chest was negative for acute pathology. Is going for bronchoscopy today. He is n.p.o. Plan to do the CT of the chest with IV contrast later on today. Symptomatic comfortable in the bed communicating well pulse ox is 93% on room air. Max is 98.5. 05/12/[id number]-vshw-old male with multiple medical problems including coronary artery disease with stent placement, COPD, CKD, peripheral vascular disease with bilateral bypasses history of aortic graft placement on chronic Coumadin therapy admitted for hemoptysis. Patient is off Coumadin. He went for bronchoscopy today. After the bronchoscopy I will talk to Dr. Ibarra and see if the patient need a CT of the chest. We will try to do the CT of the chest yesterday but we are unable to get a bigger IV access to give her contrast. No acute events in the last 24 hours. Afebrile. 05/13/[id number]-ftfe-old male admitted with hemoptysis. 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 Coumadin is on hold for the last 5 to 6 days. He has a bronchoscopy was done for hemostasis and no bleeding blood vessels were seen. Dr. Ibarra's recommendation is to continue to hold Coumadin for at least another 24 to 48 hours. Plan is to check PT/INR and the labs on daily basis. Reason For Visit: HEMOPTYSIS Physical Exam Vital Signs: Temp Pulse Resp BP Pulse Ox 98.6 F 83 17 124/58 L 94 05/12/19 23:38 05/13/19 07:00 05/12/19 23:38 05/12/19 23:38 05/12/19 23:38 Intake & Output 05/12/19 05/13/19 05/14/19 06:59 06:59 06:59 Intake Total 837 850 Balance 837 850 Weight 109.9 kg 110 kg General appearance: PRESENT: no acute distress, cooperative, obese Head exam: PRESENT: atraumatic Eye exam: PRESENT: PERRLA Mouth exam: PRESENT: moist, tongue midline Teeth exam: PRESENT: poor dentation Neck exam: ABSENT: carotid bruit, JVD, lymphadenopathy, thyromegaly Respiratory exam: PRESENT: decreased breath sounds Cardiovascular exam: PRESENT: RRR. ABSENT: diastolic murmur, rubs, systolic murmur GI/Abdominal exam: PRESENT: normal bowel sounds, soft. ABSENT: distended, guarding, mass, organolmegaly, rebound, tenderness Rectal exam: PRESENT: deferred Extremities exam: PRESENT: full ROM. ABSENT: calf tenderness, clubbing, pedal edema Neurological exam: PRESENT: alert, awake, oriented to person, oriented to place, oriented to time, oriented to situation, CN II-XII grossly intact. ABSENT: motor sensory deficit Psychiatric exam: PRESENT: appropriate affect, normal mood. ABSENT: homicidal ideation, suicidal ideation Results Laboratory Results: 05/12/19 06:49 05/12/19 06:49 05/12/19 10:41 Fluid Type BRONCHIAL WASH Fluid Source LUNG Fluid Color RED Fluid Appearance SLIGHTLY HAZY Fluid Viscosity LIQUID Fluid WBC 0 Fluid RBC 15716 05/08/19 14:30 Sputum Gram Stain - Final 05/08/19 14:30 Sputum Sputum Culture - Final NORMAL TRINITY 05/08/19 14:30 Troponin I < 0.012 Impressions: Chest X-Ray 05/08/19 00:00 IMPRESSION: NO ACUTE FINDINGS. Chest CT 05/08/19 15:53 IMPRESSION: Coronary artery calcification. No significant finding in the lungs. No explanation for hemoptysis. Soft Tissue Neck CT 05/09/19 12:52 IMPRESSION: NO SIGNIFICANT FINDING IN THE SOFT TISSUES OF THE NECK. Assessment and Plan - Diagnosis (1) Hemoptysis Is this a current diagnosis for this admission?: Yes Plan: Chest x-ray is normal. Chest CT was also unremarkable. Discussed with patient and is amenable to holding off on Coumadin and aspirin for now. No indication for FFP at this time unless he has recurrence or persistence of hemoptysis. INR is 2.2. Will consult home for further recommendations. 05/09: He had 3 more episodes of hemoptysis overnight but says they have been less bloody. He says he forgot to report that he also has some dysphagia "as if something is stuck in my throat". Will order a neck CT. Await further pulm recommendations. 05/10: Chest CT and cervical CT have been unrevealing for source of hemoptysis. Discussed with pulmonology, Dr. Ibarra who plans to proceed with bronchoscopy tomorrow. Also discussed possibility of an aortobronchial fistula given his hi story of aortic surgery. Discussed risks and benefits of pursuing a CTA including contrast induced nephropathy given his CKD. He expresses he would prefer to pursue the study to find the source of hemoptysis understanding the risk it may worsen his renal function. Reconsider CTA depending on findings on bronchoscopy. 05/11/2019-no complaints of coughing up blood anymore. Dr. Ibarra is on board. Patient is going for bronchoscopy. Plan to do the CT of the chest today. INR is 1.19. Hemoglobin is stable around 12.5. Comfortably in the bed communicating well. 05/12/2019-patient admitted with hemoptysis is going for bronchoscopy today. Patient is on Coumadin at home which was on hold. INR Yesterday's 1.19. Once the bronchoscopy was done I am going to talk to Dr. Ibarra to see if there is need for CT of the chest 05/13/2019-patient admitted with hemoptysis status post bronchoscopy was done bronchoalveolar lavage was done. The reports are pending. Patient is not coughing up any blood anymore. Coumadin is not on hold. Plan is to check his PT/INR today and tomorrow. And hold Coumadin for at least another day 2. Probably discharge home tomorrow. (2) Congestive heart failure Is this a current diagnosis for this admission?: Yes Plan: Not in exacerbation. Requested records and labs/echo reports from NH. 05/11/2019-patient blood pressure today is 120/41 euvolemic. Waiting for the echo report from NH. Based on the information I got patient most likely has a chronic systolic heart failure. 05/12/2019-patient blood pressure today is 117/51 stable. Patient has a chronic systolic heart failure. Euvolemic. 11/13/2018-patient blood pressure today is 124/60. Stable. Euvolemic. Most likely patient has a chronic systolic heart failure. (3) Chronic anticoagulation Is this a current diagnosis for this admission?: Yes Plan: Hold off on coumadin for now. 05/11/2019-patient came in with coughing up blood INR is 1.19 he is off Coumadin for the last 3 to 4 days. Plan is to check PT/INR on daily basis. 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 This is as per the patient. Because the patient was admitted with hemoptysis Coumadin is on hold. 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 Coumadin is on hold because of hemoptysis. To check INR today and tomorrow. (4) Chronic obstructive pulmonary disease (COPD) Is this a current diagnosis for this admission?: Yes Plan: Not in exacerbation. Breathing treatments as needed. 05/11/2019-pulse ox is 93% on room air. Comfortably in the bed. Chest bilateral entry was decreased no wheezing no crepitations. Plan is to continue the present management. 05/12/2019-patient has history of COPD no complaints of shortness of breath no wheezing on examination pulse ox is 94% on room air. Plan is to continue the present management. 05/13/2019-patient has history of COPD pulse ox is 94% room air comfortably sleeping in the bed not in distress. On examination chest bilateral entry was decreased no wheezing no crepitations. (5) CKD (chronic kidney disease), stage III Is this a current diagnosis for this admission?: Yes Plan: Avoid nephrotoxic agents. We will hold off on lisinopril due to hyperkalemia. 05/11/2019-patient creatinine is 1.8 stable. Patient's baseline creatinine is around 1.75. Urinary output is 1500 cc in the last 24 hours. 05/12/2019-patient latest creatinine is 1.61 stable. Baseline creatinine is around 1.75. Nonoliguric. 05/13 2019-latest serum creatinine is 1.61 today's labs are pending patient is nonoliguric. (6) Hyperkalemia Is this a current diagnosis for this admission?: Yes - Time Time Spent with patient: 25-34 minutes
[2019-05-13 10:10] LABS: ABSOLUTE EOSINOPHILS # (AUTO) 0.2 10^3/uL (0.0-0.6); ABSOLUTE LYMPHOCYTES (AUTO) 0.9 10^3/uL (0.5-4.7); ABSOLUTE MONOCYTES (AUTO) 0.2 10^3/uL (0.1-1.4); ABSOLUTE NEUT (AUTO) 3.7 10^3/uL (1.7-8.2); BASOPHILS % (AUTO) 0.4 % (0-2); EOSINOPHILS % (AUTO) 4.3 % (0-6); HEMATOCRIT 38.4 % (37.9-51.0); HEMOGLOBIN 12.4 g/dL (13.5-17.0); LYMPHOCYTES % (AUTO) 18.5 % (13-45); MEAN CORPUSCULAR HEMOGLOBIN 29.3 pg (27.0-33.4); MEAN CORPUSCULAR HGB CONC 32.4 g/dL (32.0-36.0); MEAN CORPUSCULAR VOLUME 91 fl (80-97); MONOCYTES % (AUTO) 4.4 % (3-13); PLATELET COUNT 137 10^3/uL (150-450); RED BLOOD COUNT 4.24 10^6/uL (4.35-5.55); SEGMENTED NEUTROPHILS % (AUTO) 72.4 % (42-78); TOTAL CELLS COUNTED % (AUTO) 100 %; WHITE BLOOD COUNT 5.1 10^3/uL (4.0-10.5)
[2019-05-13 10:20] LABS: PROTHROMBIN TIME 14.2 SEC (11.4-15.4)
[2019-05-13 10:39] LABS: ALBUMIN 4.1 g/dL (3.5-5.0); ALKALINE PHOSPHATASE 109 U/L (38-126); ANION GAP 12 (5-19); ASPARTATE AMINO TRANSFERASE 35 U/L (17-59); BILIRUBIN,DIRECT 0.4 mg/dL (0.0-0.4); BILIRUBIN,TOTAL 0.7 mg/dL (0.2-1.3); BLOOD UREA NITROGEN 39 mg/dL (7-20); CARBON DIOXIDE 23 mmol/L (22-30); CHLORIDE 105 mmol/L (98-107); GLUCOSE 154 mg/dL (75-110); POTASSIUM 4.6 mmol/L (3.6-5.0)
--- NOTE | 2019-05-13 12:14 | PDOC PROGRESS REPORT ---
Subjective Progress Note for:: 05/13/19 Subjective:: Patient without complaints 24 hours status post bronchoscopy no hemoptysis reported Reason For Visit: HEMOPTYSIS Physical Exam Vital Signs: Temp Pulse Resp BP Pulse Ox 98.2 F 86 14 127/69 H 96 05/13/19 07:25 05/13/19 07:25 05/13/19 07:25 05/13/19 07:25 05/13/19 07:25 Intake & Output 05/12/19 05/13/19 05/14/19 06:59 06:59 06:59 Intake Total 837 850 Balance 837 850 Weight 109.9 kg 110 kg General appearance: PRESENT: no acute distress, cooperative, disheveled, obese Head exam: PRESENT: atraumatic, normocephalic Eye exam: PRESENT: conjunctiva pale, EOMI. ABSENT: nystagmus, periorbital swelling, scleral icterus Mouth exam: PRESENT: moist, neck supple, tongue midline Neck exam: ABSENT: carotid bruit, full ROM, JVD, lymphadenopathy, meningismus, tenderness, thyromegaly, tracheal deviation, tracheostomy, other Respiratory exam: PRESENT: decreased breath sounds, prolonged expiratory phas, rhonchi, symmetrical, unlabored. ABSENT: retraction, stridor, tachypnea Cardiovascular exam: PRESENT: RRR, +S1, +S2. ABSENT: tachycardia Pulses: PRESENT: normal radial pulses GI/Abdominal exam: PRESENT: hernia, soft. ABSENT: mass, tenderness Extremities exam: PRESENT: +1 edema. ABSENT: calf tenderness, clubbing, joint swelling Musculoskeletal exam: ABSENT: ambulatory, deformity, dislocation Neurological exam: PRESENT: alert, awake Psychiatric exam: PRESENT: flat affect Skin exam: PRESENT: dry, warm Results Laboratory Results: 05/13/19 09:00 05/13/19 09:00 05/12/19 05/13/19 05/13/19 10:41 09:00 09:00 WBC 5.1 RBC 4.24 L Hgb 12.4 L Hct 38.4 MCV 91 MCH 29.3 MCHC 32.4 RDW 15.0 H Plt Count 137 L Seg Neutrophils % 72.4 Sodium 139.5 Potassium 4.6 Chloride 105 Carbon Dioxide 23 Anion Gap 12 BUN 39 H Creatinine 1.66 H Est GFR ( Amer) 49 L Glucose 154 H Calcium 9.0 Magnesium 1.5 L Total Bilirubin 0.7 AST 35 Alkaline Phosphatase 109 Total Protein 7.0 Albumin 4.1 Fluid Type BRONCHIAL WASH Fluid Source LUNG Fluid Color RED Fluid Appearance SLIGHTLY HAZY Fluid Viscosity LIQUID Fluid WBC 0 Fluid RBC 27004 05/08/19 14:30 Sputum Gram Stain - Final 05/08/19 14:30 Sputum Sputum Culture - Final NORMAL TRINITY 05/08/19 14:30 Troponin I < 0.012 Impressions: Chest X-Ray 05/08/19 00:00 IMPRESSION: NO ACUTE FINDINGS. Chest CT 05/08/19 15:53 IMPRESSION: Coronary artery calcification. No significant finding in the lungs. No explanation for hemoptysis. Soft Tissue Neck CT 05/09/19 12:52 IMPRESSION: NO SIGNIFICANT FINDING IN THE SOFT TISSUES OF THE NECK. Assessment & Plan - Diagnosis (1) Chronic anticoagulation Is this a current diagnosis for this admission?: Yes Plan: Try to hold off anticoagulation for 5 to 7 days use antitussives before reinitiating anticoagulation (2) Hemoptysis Is this a current diagnosis for this admission?: Yes Plan: Fiberoptic bronchoscopy only revealed friable mucosa several areas of the left upper lobe (3) Chronic obstructive pulmonary disease (COPD) Is this a current diagnosis for this admission?: Yes Plan: Generic Name Dose Route Start Last Admin Trade Name Freq PRN Reason Stop Dose Admin Albuterol 2 puff 05/11/19 08:08 Proair Hfa Inhalation Aerosol 8.5 Gm Mdi IH 06/10/19 08:07 Q6HP PRN SHORTNESS OF BREATH Albuterol/Ipratropium 3 ml 05/08/19 18:25 05/09/19 15:52 Duoneb 3 Ml Ampul NEB 06/07/19 18:24 3 ml RTQ4HP PRN SHORTNESS OF BREATH (4) HTN (hypertension) Qualifiers: Hypertension type: essential hypertension Qualified Code(s): I10 - Essential (primary) hypertension Is this a current diagnosis for this admission?: Yes Plan: Stable at this time
[2019-05-13] MEDS: ATORVASTATIN CALCIUM 40 MG TABLET PO SCH (22:07)
[2019-05-13 23:55] VITALS: BP 115/66
[2019-05-14 05:15] LABS: ABSOLUTE EOSINOPHILS # (AUTO) 0.3 10^3/uL (0.0-0.6); ABSOLUTE LYMPHOCYTES (AUTO) 1.7 10^3/uL (0.5-4.7); ABSOLUTE MONOCYTES (AUTO) 0.6 10^3/uL (0.1-1.4); ABSOLUTE NEUT (AUTO) 3.8 10^3/uL (1.7-8.2); BASOPHILS % (AUTO) 0.6 % (0-2); EOSINOPHILS % (AUTO) 4.5 % (0-6); HEMATOCRIT 38.1 % (37.9-51.0); HEMOGLOBIN 12.4 g/dL (13.5-17.0); LYMPHOCYTES % (AUTO) 26.5 % (13-45); MEAN CORPUSCULAR HEMOGLOBIN 29.3 pg (27.0-33.4); MEAN CORPUSCULAR HGB CONC 32.5 g/dL (32.0-36.0); MEAN CORPUSCULAR VOLUME 90 fl (80-97); PLATELET COUNT 151 10^3/uL (150-450); RED BLOOD COUNT 4.23 10^6/uL (4.35-5.55); RED CELL DISTRIBUTION WIDTH 14.9 % (11.5-14.0); SEGMENTED NEUTROPHILS % (AUTO) 59.4 % (42-78); TOTAL CELLS COUNTED % (AUTO) 100 %; WHITE BLOOD COUNT 6.5 10^3/uL (4.0-10.5)
[2019-05-14 05:20] LABS: INTERNATIONAL RATION (INR) 1.12; PROTHROMBIN TIME 14.4 SEC (11.4-15.4)
[2019-05-14] MEDS: LEVOTHYROXINE SODIUM 0.025 MG TABLET PO SCH (05:27)
[2019-05-14 05:32] LABS: ALBUMIN 3.9 g/dL (3.5-5.0); ALKALINE PHOSPHATASE 118 U/L (38-126); ANION GAP 10 (5-19); ASPARTATE AMINO TRANSFERASE 35 U/L (17-59); BILIRUBIN,DIRECT 0.2 mg/dL (0.0-0.4); BILIRUBIN,TOTAL 0.6 mg/dL (0.2-1.3); BLOOD UREA NITROGEN 44 mg/dL (7-20); CALCIUM 9.1 mg/dL (8.4-10.2); CARBON DIOXIDE 22 mmol/L (22-30); CHLORIDE 107 mmol/L (98-107); GLUCOSE 117 mg/dL (75-110); POTASSIUM 5.1 mmol/L (3.6-5.0); TOTAL PROTEIN 6.7 g/dL (6.3-8.2)
[2019-05-14] MEDS: AMLODIPINE BESYLATE 5 MG TABLET PO SCH (09:25)
[2019-05-14] MEDS: CETIRIZINE 10 MG TABLET PO SCH (09:26)
[2019-05-14] MEDS: ATENOLOL 50 MG TABLET PO SCH (09:26)
[2019-05-14] MEDS: TRAMADOL HCL 50 MG TABLET PO PRN (09:27)
== END 2019-05-14 11:10 | disposition home or self-care (01) | DRG 167 ==
LOC: ER 13:41 → INTOOBSV 16:19 → EH 16:19 → OBSVTOIN 16:55 → 4N 18:27
PROVIDERS: ADMIT Internal Medicine; ATTEND Internal Medicine
PROC: 0B9M8ZX Drainage of Bilateral Lungs, Via Natural or Artificial Opening Endoscopic, Diagnostic (ICD-10-PCS; principal; 2019-05-12 10:00)
DX: R04.2 Hemoptysis (principal); D68.32 Hemorrhagic disorder due to extrinsic circulating anticoagulants; I13.0 Hypertensive heart and chronic kidney disease with heart failure and stage 1 through stage 4 chronic kidney disease, or unspecified chronic kidney disease; T45.515A Adverse effect of anticoagulants, initial encounter; J44.9 Chronic obstructive pulmonary disease, unspecified; I50.9 Heart failure, unspecified; E87.5 Hyperkalemia; N18.3 Chronic kidney disease, stage 3 (moderate); I25.10 Atherosclerotic heart disease of native coronary artery without angina pectoris; E78.00 Pure hypercholesterolemia, unspecified; Z79.01 Long term (current) use of anticoagulants; Z79.891 Long term (current) use of opiate analgesic; Z79.52 Long term (current) use of systemic steroids; Z79.899 Other long term (current) drug therapy; Z86.73 Personal history of transient ischemic attack (TIA), and cerebral infarction without residual deficits; Z87.891 Personal history of nicotine dependence
CPT/HCPCS: 31624; 36415; 70490; 71046; 71250; 80048; 80053; 83735; 84443; 84484; 85025; 85610; 87015; 87040; 87070; 87101; 87116; 87205; 87206; 89050; 93005; 93010; 99285; J0171; J1200; J1610; J2250; J2310; J2405; J3010; J3490; J7620

== ENCOUNTER 2019-08-20 20:00 | Inpatient (IN) | payer OTHER, MEDICARE ==
--- NOTE | 2019-08-20 20:39 | ER Document Report ---
ED Medical Screen (RME) - General Chief Complaint: Breathing Difficulty Stated Complaint: DIFFICULTY BREATHING Time Seen by Provider: 08/20/19 20:33 Primary Care Provider: VASILIY NICHOLSON MD [Primary Care Provider] - Follow up as needed Mode of Arrival: Wheelchair Information source: Patient Notes: 79-year-old male presented to ED for complaint of difficulty breathing very short of breath lungs tight chest pain when walking unable to walk more than a few feet before he gets very weak. He also has a lower body pain and numbness to both legs. He states the numbness and weakness is been for about a week got much worse yesterday. He states he has a history of COPD. 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 He states his surgery was about 1994. He states he also had a arterial bypass to both legs at that time. He has a very large abdominal hernia he states he had that for a long time due to 6 abdominal surgeries. He has coronary artery disease with stent. Is also had a carotid endarterectomy. TRAVEL OUTSIDE OF THE [place] IN LAST 30 DAYS: No - Related Data Allergies/Adverse Reactions: No Known Allergies Allergy (Verified 05/08/19 13:43) Past Medical History - Past Medical History Cardiac Medical History: Reports: Hx Congestive Heart Failure, Hx Coronary Artery Disease, Hx Heart Attack - 1997?, Hx Hypercholesterolemia, Hx Hypertension Pulmonary Medical History: Reports: Hx Asthma - as child, Hx COPD Denies: Hx Tuberculosis Neurological Medical History: Reports: Hx Cerebrovascular Accident - 1989?. Denies: Hx Seizures Renal/ Medical History: Denies: Hx Peritoneal Dialysis GI Medical History: Reports: Hx Hiatal Hernia, Hx Ulcer Musculoskeltal Medical History: Reports Hx Arthritis Psychiatric Medical History: Denies: Hx Depression Traumatic Medical History: Reports: Hx Fractures - rt hand, lft knee Past Surgical History: Reports: Hx Abdominal Surgery - bowel obstructionX6, Hx Appendectomy - 1963, Hx Cardiac Surgery - CARDIAC STENT, AORTIC GRAFT, Hx Cholecystectomy - 2008. Denies: Hx Pacemaker - Immunizations Hx Diphtheria, Pertussis, Tetanus Vaccination: Yes - 2006 Physical Exam - Vital signs Vitals: Temp Pulse Resp BP Pulse Ox 97.5 F 92 29 H 109/90 H 96 08/20/19 20:22 08/20/19 20:22 08/20/19 20:22 08/20/19 20:22 08/20/19 20:22 Course - Vital Signs Vital signs: Temp Pulse Resp BP Pulse Ox 97.5 F 92 29 H 109/90 H 96 08/20/19 20:22 08/20/19 20:22 08/20/19 20:22 08/20/19 20:22 08/20/19 20:22 Doctor's Discharge - Discharge Referrals: VASILIY NICHOLSON MD [Primary Care Provider] - Follow up as needed
[2019-08-20 21:07] LABS: ABSOLUTE BASOPHILS # (AUTO) 0.1 10^3/uL (0.0-0.2); ABSOLUTE EOSINOPHILS # (AUTO) 0.1 10^3/uL (0.0-0.6); ABSOLUTE LYMPHOCYTES (AUTO) 1.8 10^3/uL (0.5-4.7); ABSOLUTE MONOCYTES (AUTO) 0.7 10^3/uL (0.1-1.4); ABSOLUTE NEUT (AUTO) 5.3 10^3/uL (1.7-8.2); BASOPHILS % (AUTO) 0.7 % (0-2); EOSINOPHILS % (AUTO) 1.5 % (0-6); HEMATOCRIT 20.3 % (37.9-51.0); LYMPHOCYTES % (AUTO) 22.2 % (13-45); MEAN CORPUSCULAR HEMOGLOBIN 22.3 pg (27.0-33.4); MEAN CORPUSCULAR HGB CONC 29.9 g/dL (32.0-36.0); MEAN CORPUSCULAR VOLUME 75 fl (80-97); MONOCYTES % (AUTO) 8.7 % (3-13); PLATELET COUNT 221 10^3/uL (150-450); RED BLOOD COUNT 2.72 10^6/uL (4.35-5.55); RED CELL DISTRIBUTION WIDTH 20.6 % (11.5-14.0); SEGMENTED NEUTROPHILS % (AUTO) 66.9 % (42-78); TOTAL CELLS COUNTED % (AUTO) 100 %; WHITE BLOOD COUNT 7.9 10^3/uL (4.0-10.5)
[2019-08-20 21:11] LABS: HEMOGLOBIN 6.1 g/dL (13.5-17.0)
[2019-08-20 21:26] LABS: ALBUMIN 4.1 g/dL (3.5-5.0); ALKALINE PHOSPHATASE 114 U/L (38-126); ANION GAP 13 (5-19); ASPARTATE AMINO TRANSFERASE 42 U/L (17-59); BILIRUBIN,DIRECT 0.3 mg/dL (0.0-0.4); BILIRUBIN,TOTAL 0.5 mg/dL (0.2-1.3); BLOOD UREA NITROGEN 51 mg/dL (7-20); CARBON DIOXIDE 22 mmol/L (22-30); CHLORIDE 109 mmol/L (98-107); GLUCOSE 134 mg/dL (75-110); POTASSIUM 5.4 mmol/L (3.6-5.0); TOTAL PROTEIN 7.4 g/dL (6.3-8.2)
--- NOTE | 2019-08-20 21:42 | RADIOLOGY REPORT (SQ) ---
EXAM DESCRIPTION: XR CHEST 2 VIEWS COMPLETED DATE/TME: 08/20/2019 20:41 CLINICAL HISTORY: 79 years, Male, short of breath COMPARISON: X-ray chest 05/08/2019 NUMBER OF VIEWS: TECHNIQUE: LIMITATIONS: None. FINDINGS: There is emphysema. There is a possible small left pleural effusion. No evidence of pulmonary infiltrate. There is a small amount of scarring at the medial left lung base. Pulmonary vascularity appears normal. There are atherosclerotic changes and tortuosity of the thoracic aorta. IMPRESSION: Emphysema. Possible small left pleural effusion. copyright 2010 [employer]- All Rights Reserved
[2019-08-20] MEDS ORDERED: PANTOPRAZOLE SODIUM 40 MG VIAL IV ONE (22:10)
[2019-08-20] MEDS ORDERED: NORMAL SALINE 250 ML IV PRN (22:10)
[2019-08-20] MEDS ORDERED: PANTOPRAZOLE SODIUM 40 MG VIAL IV PRN (22:11)
--- NOTE | 2019-08-20 22:16 | ER Document Report ---
ED General - General Chief Complaint: Shortness Of Breath Stated Complaint: DIFFICULTY BREATHING Time Seen by Provider: 08/20/19 20:33 Primary Care Provider: VASILIY NICHOLSON MD [Primary Care Provider] - Follow up as needed Mode of Arrival: Wheelchair TRAVEL OUTSIDE OF THE [place] IN LAST 30 DAYS: No - HPI Notes: Patient is a 79-year-old male who presents emergency department for evaluation of chest pain and dyspnea on exertion, as well as leg pain with exertion. He states the chest pain is been present for about a week, the leg pain and shortness of breath over the last 48 hours. He describes the chest pain as a tightness, is substernal, with associated shortness of breath. It seems to go away with rest. It does not radiate. He denies any associated nausea, diaphoresis, near syncope. He states he has chronic hip pain, but this leg pain seems to be worse with ambulation, and slightly different in character. He denies any melena or hematochezia. He does admit though, that he is been taking [id number] ibuprofen recently because his pain is been severe. - Related Data Allergies/Adverse Reactions: No Known Allergies Allergy (Verified 08/20/19 20:35) Home Medications: List reviewed, please see note, but include Coumadin 7.5 mg daily Past Medical History - General Information source: Patient - Social History Smoking Status: Former Smoker Frequency of alcohol use: Rare Drug Abuse: None Family History: CAD, COPD, CVA Patient has suicidal ideation: No Patient has homicidal ideation: No - Past Medical History Cardiac Medical History: Reports: Hx Congestive Heart Failure, Hx Coronary A rtery Disease, Hx Heart Attack - 1997?, Hx Hypercholesterolemia, Hx Hypertension Pulmonary Medical History: Reports: Hx Asthma - as child, Hx COPD Denies: Hx Tuberculosis Neurological Medical History: Reports: Hx Cerebrovascular Accident - 1989?. D enies: Hx Seizures Renal/ Medical History: Denies: Hx Peritoneal Dialysis GI Medical History: Reports: Hx Hiatal Hernia, Hx Ulcer Musculoskeletal Medical History: Reports Hx Arthritis Psychiatric Medical History: Denies: Hx Depression Traumatic Medical History: Reports: Hx Fractures - rt hand, lft knee Past Surgical History: Reports: Hx Abdominal Surgery - bowel obstructionX6, Hx Appendectomy - 1963, Hx Cardiac Surgery - CARDIAC STENT, AORTIC GRAFT, Hx Cholecystectomy - 2008. Denies: Hx Pacemaker - Immunizations Hx Diphtheria, Pertussis, Tetanus Vaccination: Yes - 2006 Hx Pneumococcal Vaccination: 11/20/13 Review of Systems - Review of Systems Constitutional: Weakness EENT: No symptoms reported Cardiovascular: See HPI Respiratory: See HPI Gastrointestinal: No symptoms reported Genitourinary: No symptoms reported Musculoskeletal: See HPI Skin: No symptoms reported Neurological/Psychological: No symptoms reported Physical Exam - Vital signs Vitals: Temp Pulse Resp BP Pulse Ox 97.5 F 92 29 H 109/90 H 96 08/20/19 20:22 08/20/19 20:22 08/20/19 20:22 08/20/19 20:22 08/20/19 20:22 - Notes Notes: This is a 79-year-old male, appears his stated age. He is pale, but in no acute distress. Vital signs reviewed, please refer to chart. Head is normocephalic, atraumatic. Pupils equal round, reactive to light. Neck is supple without meningismus. Heart is regular rate and rhythm. Lungs are clear to auscultation bilaterally. Abdomen is soft, nontender, normoactive bowel sounds throughout. Rectal exam is performed. Good rectal tone, stool is brown and heme positive. Extremities without cyanosis, clubbing. Posterior calves are nontender. 1+ pitting edema up to bilateral lower extremities. Peripheral pulses are equal. Skin is warm and dry. Patient is awake, alert, neurological exam is nonfocal. Course - Re-evaluation Re-evalutation: 08/20/19 22:14 Patient presents emergency department for evaluation. Laboratory investigations were obtained as ordered through triage. EKG, patient was placed on the monitor. Laboratory investigations were reported to me, he was noted to be markedly anemic. Rectal exam was performed and was found to be heme positive. He is anticoagulated, INR was added. Given his recent ibuprofen, I was inclined to treat him with an IV PPI, although the stool was not melena. Patient remained stable, his abdomen is soft and nontender. We will continue to monit or, blood transfusion ordered. 08/20/19 22:56 Patient remained stable. He started on Protonix. Blood transfusion is ordered. I spoke with Dr. Durham to admit the patient. - Vital Signs Vital signs: Temp Pulse Resp BP Pulse Ox 97.5 F 84 25 H 135/44 H 100 08/20/19 20:22 08/20/19 20:42 08/20/19 20:42 08/20/19 20:42 08/20/19 20:42 - Laboratory Result Diagrams: 08/20/19 20:54 08/20/19 20:54 Laboratory results interpreted by me: 08/20/19 08/20/19 08/20/19 20:54 20:54 20:54 RBC 2.72 L Hgb 6.1 L Hct 20.3 L MCV 75 L MCH 22.3 L MCHC 29.9 L RDW 20.6 H PT 25.4 H Potassium 5.4 H Chloride 109 H BUN 51 H Creatinine 2.35 H Est GFR ( Amer) 33 L Est GFR (MDRD) Non-Af 27 L Glucose 134 H Crossmatch 08/20/19 21:35 RBC Hgb Hct MCV MCH MCHC RDW PT Potassium Chloride BUN Creatinine Est GFR ( Amer) Est GFR (MDRD) Non-Af Glucose Crossmatch See Detail - Diagnostic Test Radiology reviewed: Reports reviewed Radiology results interpreted by me: 08/20/19 22:15 Chest X-Ray 08/20/19 20:41 IMPRESSION: Emphysema. Possible small left pleural effusion. copyright 2010 [employer]- All Rights Reserved - EKG Interpretation by Me Additional EKG results interpreted by me: 08/20/19 22:15 Sinus mechanism with rate of 86 bpm. Normal axis and intervals, no acute ST changes concerning for ischemia or infarction Discharge - Discharge Clinical Impression: Blood loss anemia, GI bleed, Chronic anticoagulation Condition: Stable Disposition: ADMITTED INPATIENT Admitting Provider: Marva (Hospitalist) Unit Admitted: Medical Floor Referrals: VASILIY NICHOLSON MD [Primary Care Provider] - Follow up as needed
[2019-08-20 22:21] LABS: INTERNATIONAL RATION (INR) 2.27; PROTHROMBIN TIME 25.4 SEC (11.4-15.4)
[2019-08-20] MEDS ORDERED: MORPHINE SULFATE 10 MG/ML INJ IV ONE (23:40)
[2019-08-20] MEDS ORDERED: MAGNESIUM HYDROXIDE SUSP 30 ML UDCUP PO PRN (23:44)
[2019-08-20] MEDS ORDERED: MAG HYDROX/AL HYDROX/SIMETH SUSP 30 ML UDCUP PO PRN (23:44)
[2019-08-20] MEDS ORDERED: RINGERS SOLUTION,LACTATED 1,000 ML IV PRN (23:44)
[2019-08-20] MEDS ORDERED: ACETAMINOPHEN 650 MG SUPP.RECT PR PRN (23:51)
[2019-08-20] MEDS ORDERED: METOPROLOL TARTRATE PF/INJ 5 MG/5 ML SDV IV PRN (23:51)
[2019-08-21] MEDS ORDERED: LEVALBUTEROL HCL NEB 1.25 MG/3 ML AMPUL NEB SCH
[2019-08-21] MEDS: ONDANSETRON HCL INJ/PF 4 MG/2 ML SDV IV PRN (00:33)
[2019-08-21] MEDS: IPRATROPIUM BROMIDE 0.02% NEB 0.5 MG/2.5 ML AMPUL NEB SCH ×3 (00:34→15:55)
--- NOTE | 2019-08-21 04:33 | PDOC H&P ---
History of Present Illness Admission Date/PCP: 08/20/19 23:10 VASILIY NICHOLSON MD Patient complains of: Exertional chest pain History of Present Illness: SALOMÓN DE LA VEGA is a 79 year old male who presents the emergency room with a one-week history of chest pain. He admits chest pain occurring with exertion over the last week. For the last 3 days his exertional chest pain has become associated with dyspnea on exertion and bilateral claudication. He describes the chest pain as an episodic, moderately intense substernal pressure/tightness without radiation. His symptoms resolve with rest. He denies other associated or accompanying signs and symptoms. He denies prior similar episodes. He admits that recently his began taking [id number] ibuprofen for his arthritis pain even though he is aware that this is not a good practice while taking Coumadin. He has not identified any other aggravating or ameliorating factors for his chest pain. In the emergency room he was found to have a negative initial cardiac ischemic evaluation but was noted to have an elevation of his BUN and creatinine greater than his previous levels and a hemoglobin of 6.1 with a guaiac positive stool specimen. His INR is 2.3. He was subsequently admitted to the hospital for further evaluation and treatment with a routine consultation to Dr. Solorzano for endoscopic evaluation. 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, Other - Patient is on Coumadin due to "aortic clot" noted above Pulmonary Medical History: Reports: Asthma, Chronic Obstructive Pulmonary Disease (COPD) Denies: Tuberculosis EENT Medical History: Denies: Ears - Hearing aids, Nose - Nasal polyps Neurological Medical History: Denies: Hemorrhagic CVA, Ischemic CVA, Seizures Endocrine Medical History: Reports: Hypothyroidism, Obesity Denies: Diabetes Mellitus Type 1, Diabetes Mellitus Type 2, Hyperthyroidism Renal/ Medical History: Reports: Chronic Kidney Disease Denies: Nephrolithiasis Malignancy Medical History: Reports: None GI Medical History: Reports: Hiatal Hernia Denies: Cirrhosis, Crohn's Disease, Hepatitis, Ulcerative Colitis Musculoskeltal Medical History: Reports: Arthritis Skin Medical History: Denies: Eczema, Psoriasis Psychiatric Medical History: Denies: Alcohol Dependency, Depression, Substance Abuse, Tobacco Dependency Traumatic Medical History: Reports: None Hematology: Reports: Bleeding Tendencies - On warfarin Denies: Anemia Infectious Medical History: Reports: None Past Surgical History Past Surgical History: Reports: Appendectomy - 1963, Cholecystectomy - 2008 Social History Information Source: Patient Lives with: Family Smoking Status: Former Smoker Electronic Cigarette use?: No Frequency of Alcohol Use: None Hx Recreational Drug Use: No Drugs: None Hx Prescription Drug Abuse: No - Advance Directive Resuscitation Status: Full Code Surrogate healthcare decision maker:: Salomón De La Vega Jr Family History Family History: CAD, COPD, CVA, Hypertension. denies: DM, Malignancy Parental Family History Reviewed: Yes Children Family History Reviewed: No Sibling(s) Family History Reviewed.: Yes Medication/Allergy Home Medications: Acetaminophen [Pain Reliever] 500 mg PO TID PRN 03/24/14 Tramadol HCl 100 mg PO BID 03/24/14 Albuterol Sulfate [Proair HFA Inhalation Aerosol 8.5 gm MDI] 2 puff IH Q6HP PRN 05/10/19 Atenolol [Tenormin 100 mg Tablet] 100 mg PO DAILY 05/10/19 Atorvastatin Calcium [Lipitor 80 mg Tablet] 40 mg PO DAILY 05/10/19 Cetirizine HCl [Zyrtec 10 mg Tablet] 10 mg PO DAILY 05/10/19 Levothyroxine Sodium [Synthroid 0.05 mg Tablet] 50 mcg PO DAILY 05/10/19 Lisinopril/Hydrochlorothiazide [Lisinopril-Hctz 10-12.5 mg Tab] 1 each PO DAILY 05/10/19 Methocarbamol [Robaxin 750 mg Tablet] 750 mg PO Q8HP PRN 05/10/19 Amlodipine Besylate [Norvasc 5 mg Tablet] 5 mg PO DAILY tablet 05/14/19 Atenolol [Tenormin 50 mg Tablet] 12.5 mg PO DAILY tablet 05/14/19 Atorvastatin Calcium [Lipitor 40 mg Tablet] 40 mg PO QHS tablet 05/14/19 Allergies/Adverse Reactions: No Known Allergies Allergy (Verified 08/20/19 20:35) Review of Systems Constitutional: ABSENT: chills, fever(s) Eyes: ABSENT: visual disturbances, other - Ocular pain Ears: ABSENT: hearing changes, other - Ear pain Nose, Mouth, and Throat: ABSENT: headache(s), mouth pain, sore throat Cardiovascular: PRESENT: as per HPI, chest pain, dyspnea on exertion, other - Claudication bilateral lower extremities. ABSENT: edema, orthropnea, palpitations Respiratory: ABSENT: cough, dyspnea, hemoptysis Gastrointestinal: ABSENT: abdominal pain, constipation, diarrhea, hematemesis, hematochezia, melena, nausea, vomiting Genitourinary: ABSENT: dysuria, hematuria Musculoskeletal: ABSENT: back pain, joint swelling, muscle weakness Integumentary: ABSENT: pruritus, rash Neurological: ABSENT: confusion, convulsions, focal weakness, memory loss, syncope Psychiatric: ABSENT: anxiety, depression Endocrine: ABSENT: cold intolerance, heat intolerance Hematologic/Lymphatic: PRESENT: easy bleeding - On Coumadin, easy bruising - On Coumadin Allergic/Immunologic: ABSENT: seasonal rhinorrhea Physical Exam Vital Signs: Temp Pulse Resp BP Pulse Ox 98.0 F 88 14 97/43 L 98 08/20/19 23:28 08/20/19 23:28 08/21/19 00:00 08/20/19 23:46 08/21/19 00:00 Intake & Output 08/19/19 08/20/19 08/21/19 23:59 23:59 23:59 Intake Total 0 Balance 0 Weight 108.1 kg General appearance: PRESENT: no acute distress, cooperative, obese Head exam: PRESENT: atraumatic, normocephalic Eye exam: PRESENT: conjunctiva pale. ABSENT: conjunctival injection, scleral icterus Ear exam: PRESENT: normal external ear exam. ABSENT: bleeding, drainage Mouth exam: PRESENT: dry mucosa, neck supple Neck exam: ABSENT: thyromegaly, tracheal deviation Respiratory exam: PRESENT: clear to auscultation audra, symmetrical, unlabored Cardiovascular exam: PRESENT: irregular rhythm - Irregularly irregular rate and rhythm. ABSENT: clicks, gallop, rubs Pulses: PRESENT: normal radial pulses, normal dorsalis pedis pul Vascular exam: PRESENT: normal capillary refill - Slightly delayed capillary refill greater than 3 seconds, pallor - Mild pallor GI/Abdominal exam: PRESENT: normal bowel sounds, soft. ABSENT: tenderness Rectal exam: PRESENT: deferred Extremities exam: ABSENT: joint swelling, pedal edema Musculoskeletal exam: ABSENT: deformity, dislocation Neurological exam: PRESENT: alert, oriented to person, oriented to place, oriented to time, oriented to situation, CN II-XII grossly intact. ABSENT: motor sensory deficit Psychiatric exam: PRESENT: appropriate affect, normal mood Skin exam: PRESENT: dry, intact, pallor, warm. ABSENT: jaundice, rash, urticaria Results Laboratory Results: 08/20/19 20:54 08/20/19 20:54 08/20/19 08/20/19 08/20/19 20:54 20:54 21:35 WBC 7.9 RBC 2.72 L Hgb 6.1 L Hct 20.3 L MCV 75 L MCH 22.3 L MCHC 29.9 L RDW 20.6 H Plt Count 221 Seg Neutrophils % 66.9 Sodium 143.9 Potassium 5.4 H Chloride 109 H Carbon Dioxide 22 Anion Gap 13 BUN 51 H Creatinine 2.35 H Est GFR ( Amer) 33 L Glucose 134 H Calcium 9.0 Magnesium 1.9 Total Bilirubin 0.5 AST 42 Alkaline Phosphatase 114 Total Protein 7.4 Albumin 4.1 Blood Type O POSITIVE Antibody Screen NEGATIVE 08/20/19 20:54 Troponin I < 0.012 Impressions: Chest X-Ray 08/20/19 20:41 IMPRESSION: Emphysema. Possible small left pleural effusion. copyright 2010 [employer]- All Rights Reserved Assessment and Plan - Diagnosis (1) Blood loss anemia Is this a current diagnosis for this admission?: Yes (2) GI bleed Qualifiers: GI bleed type/associated pathology: unspecified gastrointestinal hemorrhage t ype Qualified Code(s): K92.2 - Gastrointestinal hemorrhage, unspecified Is this a current diagnosis for this admission?: Yes (3) Chest pain Qualifiers: Chest pain type: chest pain due to myocardial ischemia Ischemic chest pain type: stable angina pectoris Qualified Code(s): I20.8 - Other forms of angina pectoris Is this a current diagnosis for this admission?: Yes (4) Acute kidney injury superimposed on chronic kidney disease Is this a current diagnosis for this admission?: Yes (5) Hyperkalemia Is this a current diagnosis for this admission?: Yes (6) CAD (coronary artery disease) Qualifiers: Coronary Disease-Associated Artery/Lesion type: [place] artery [place] vs. transplanted heart: [place] heart Associated angina: with stable angina Qualified Code(s): I25.118 - Atherosclerotic heart disease of [place] coronary artery with other forms of angina pectoris Is this a current diagnosis for this admission?: Yes (7) Congestive heart failure Qualifiers: Heart failure type: diastolic Heart failure chronicity: chronic Qualified Code(s): I50.32 - Chronic diastolic (congestive) heart failure Is this a current diagnosis for this admission?: Yes (8) CKD (chronic kidney disease), stage III Is this a current diagnosis for this admission?: Yes (9) HTN (hypertension) Qualifiers: Hypertension type: essential hypertension Qualified Code(s): I10 - Essential (primary) hypertension Is this a current diagnosis for this admission?: Yes (10) Hypercholesteremia Is this a current diagnosis for this admission?: Yes (11) Chronic obstructive pulmonary disease (COPD) Qualifiers: COPD type: unspecified COPD Qualified Code(s): J44.9 - Chronic obstructive pulmonary disease, unspecified Is this a current diagnosis for this admission?: Yes (12) Chronic anticoagulation Is this a current diagnosis for this admission?: Yes (13) Hypothyroidism Qualifiers: Hypothyroidism type: unspecified Qualified Code(s): E03.9 - Hypothyroidism, unspecified Is this a current diagnosis for this admission?: Yes - Plan Summary Summary: Patient is admitted to the medical floor where he will be receiving the usual supportive and symptomatic cares. Additionally he will be given 2 units of packed red blood cells by transfusion. He will be treated with IV Protonix and placed on a clear liquid diet. He will be continued on his usual chronic medications for his chronic medical illnesses as appropriate. He will be seen in consultation by Dr. Solorzano to evaluate him for endoscopic evaluation to locate and treat his presumed gastric intestinal blood loss. He will use morphine sulfate 2 to 4 mg IV every 2 hours on an as-needed basis for pain. He will receive IV fluids and his CBC, INR, metabolic profile and magnesium level will be followed on a regular basis. - Time Time Spent with patient: 25-34 minutes Medications reviewed and adjusted accordingly: Yes Anticipated discharge: Home - Inpatient Certification Based on my medical assessment, after consideration of the patient's comorbidities, presenting symptoms, or acuity I expect that the services needed warrant INPATIENT care.: Yes I certify that my determination is in accordance with my understanding of Medicare's requirements for reasonable and necessary INPATIENT services [42 CFR 412.3e].: Yes Medical Necessity: Significant Comorbidiites Make Outpatient Treatment Too Risky, Need Close Monitoring Due to Risk of Patient Decompensation, Need For IV Fluids, Need for Surgery, Risk of Complication if Not Cared For in Hospital, Risk of Diagnosis Which Will Require Inpatient Eval/Care/Monitoring
[2019-08-21] MEDS: MORPHINE SULFATE 10 MG/ML INJ IV PRN ×4 (05:28→21:09)
--- NOTE | 2019-08-21 07:03 | PDOC CONSULTATION ---
Consultation Consult Date: 08/21/19 Provider Consulted: SURGICAL SURGICALIST Consult reason:: Anemia, heme positive stool History of Present Illness Admission Date/PCP: 08/20/19 23:10 VASILIY NICHOLSON MD Patient complains of: Chest pain History of Present Illness: SERGO DE LA VEGA is a 79 year old male seen at the request of the hospitalist service. The patient was admitted to the hospital for chest pain and a cardiac work-up. He was found to have a hemoglobin of 6.1, which is felt to be exacerbating his exertional chest pain. The patient takes Coumadin and jon akinsly has an INR of 2.3. 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 The patient is somewhat a poor historian. Reportedly, he underwent colonoscopy this year. I do not have these records, but the patient reports that he had small polyps that were removed and was told that he needed a repeat colonoscopy in 5 years. The patient denies hematemesis, coffee-ground emesis, melena, hematochezia, abdominal pain. He does report taking NSAIDs at home. He does report fatigue and malaise. 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, Other - Patient is on Coumadin due to "aortic clot" noted above Pulmonary Medical History: Reports: Asthma, Chronic Obstructive Pulmonary Disease (COPD) Denies: Tuberculosis EENT Medical History: Denies: Ears - Hearing aids, Nose - Nasal polyps Neurological Medical History: Denies: Hemorrhagic CVA, Ischemic CVA, Seizures Endocrine Medical History: Reports: Hypothyroidism, Obesity Denies: Diabetes Mellitus Type 1, Diabetes Mellitus Type 2, Hyperthyroidism Renal/ Medical History: Reports: Chronic Kidney Disease Denies: Nephrolithiasis Malignancy Medical History: Reports: None GI Medical History: Reports: Hiatal Hernia Denies: Cirrhosis, Crohn's Disease, Hepatitis, Ulcerative Colitis Musculoskeltal Medical History: Reports: Arthritis Skin Medical History: Denies: Eczema, Psoriasis Psychiatric Medical History: Denies: Alcohol Dependency, Depression, Substance Abuse, Tobacco Dependency Traumatic Medical History: Reports: None Hematology: Reports: Bleeding Tendencies - On warfarin Denies: Anemia Infectious Medical History: Reports: None Past Surgical History Past Surgical History: Reports: Appendectomy - 1963, Cholecystectomy - 2008 Denies: Pacemaker Social History Lives with: Family Smoking Status: Former Smoker Electronic Cigarette use?: No Frequency of Alcohol Use: None Hx Recreational Drug Use: No Drugs: None Hx Prescription Drug Abuse: No - Advance Directive Resuscitation Status: Full Code Family History Family History: CAD, COPD, CVA, Hypertension. denies: DM, Malignancy Parental Family History Reviewed: Yes Children Family History Reviewed: Yes Sibling(s) Family History Reviewed.: Yes Medication/Allergy Home Medications: Acetaminophen [Pain Reliever] 500 mg PO TID PRN 03/24/14 Tramadol HCl 100 mg PO BID 03/24/14 Albuterol Sulfate [Proair HFA Inhalation Aerosol 8.5 gm MDI] 2 puff IH Q6HP PRN 05/10/19 Atenolol [Tenormin 100 mg Tablet] 100 mg PO DAILY 05/10/19 Atorvastatin Calcium [Lipitor 80 mg Tablet] 40 mg PO DAILY 05/10/19 Cetirizine HCl [Zyrtec 10 mg Tablet] 10 mg PO DAILY 05/10/19 Levothyroxine Sodium [Synthroid 0.05 mg Tablet] 50 mcg PO DAILY 05/10/19 Lisinopril/Hydrochlorothiazide [Lisinopril-Hctz 10-12.5 mg Tab] 1 each PO DAILY 05/10/19 Methocarbamol [Robaxin 750 mg Tablet] 750 mg PO Q8HP PRN 05/10/19 Amlodipine Besylate [Norvasc 5 mg Tablet] 5 mg PO DAILY tablet 05/14/19 Atenolol [Tenormin 50 mg Tablet] 12.5 mg PO DAILY tablet 05/14/19 Atorvastatin Calcium [Lipitor 40 mg Tablet] 40 mg PO QHS tablet 05/14/19 Allergies/Adverse Reactions: No Known Allergies Allergy (Verified 08/20/19 20:35) Review of Systems Constitutional: PRESENT: fatigue. ABSENT: anorexia, fever(s), headache(s) Eyes: ABSENT: visual disturbances Ears: ABSENT: hearing changes Nose, Mouth, and Throat: ABSENT: sore throat Cardiovascular: PRESENT: chest pain Respiratory: ABSENT: cough Gastrointestinal: ABSENT: abdominal pain, bloating, coffee ground emesis, hematemesis, hematochezia, melena, nausea, vomiting Genitourinary: ABSENT: dysuria Musculoskeletal: ABSENT: back pain Integumentary: ABSENT: pruritus Neurological: PRESENT: weakness. ABSENT: confusion, convulsions Psychiatric: ABSENT: anxiety, depression Endocrine: ABSENT: cold intolerance, heat intolerance Hematologic/Lymphatic: PRESENT: easy bleeding, easy bruising Physical Exam Vital Signs: Temp Pulse Resp BP Pulse Ox 98.3 F 80 16 104/47 L 97 08/21/19 05:16 08/21/19 05:17 08/21/19 05:16 08/21/19 05:17 08/21/19 05:17 Intake & Output 08/19/19 08/20/19 08/21/19 06:59 06:59 06:59 Intake Total 1103 Output Total 500 Balance 603 Weight 108.1 kg General appearance: PRESENT: no acute distress, cooperative Head exam: PRESENT: atraumatic, normocephalic Eye exam: PRESENT: EOMI, PERRLA. ABSENT: scleral icterus Mouth exam: PRESENT: moist, neck supple Neck exam: ABSENT: tenderness, thyromegaly, tracheal deviation, tracheostomy Respiratory exam: PRESENT: unlabored. ABSENT: tachypnea, wheezes Cardiovascular exam: PRESENT: RRR Pulses: PRESENT: normal radial pulses Vascular exam: PRESENT: normal capillary refill GI/Abdominal exam: PRESENT: soft. ABSENT: distended, guarding, rigid, tenderness Rectal exam: PRESENT: deferred Extremities exam: ABSENT: clubbing Musculoskeletal exam: ABSENT: deformity Neurological exam: PRESENT: alert, awake, oriented to person, oriented to place, oriented to time, oriented to situation, CN II-XII grossly intact. ABSENT: motor sensory deficit Psychiatric exam: ABSENT: agitated, anxious, depressed Focused psych exam: ABSENT: delusional Skin exam: ABSENT: cyanosis, erythema, jaundice Results Laboratory Results: 08/20/19 20:54 08/20/19 20:54 08/20/19 08/20/19 08/20/19 20:54 20:54 21:35 WBC 7.9 RBC 2.72 L Hgb 6.1 L Hct 20.3 L MCV 75 L MCH 22.3 L MCHC 29.9 L RDW 20.6 H Plt Count 221 Seg Neutrophils % 66.9 Sodium 143.9 Potassium 5.4 H Chloride 109 H Carbon Dioxide 22 Anion Gap 13 BUN 51 H Creatinine 2.35 H Est GFR ( Amer) 33 L Glucose 134 H Calcium 9.0 Magnesium 1.9 Total Bilirubin 0.5 AST 42 Alkaline Phosphatase 114 Total Protein 7.4 Albumin 4.1 Blood Type O POSITIVE Antibody Screen NEGATIVE 08/20/19 08/21/19 20:54 01:19 Troponin I < 0.012 < 0.012 Impressions: Chest X-Ray 08/20/19 20:41 IMPRESSION: Emphysema. Possible small left pleural effusion. copyright 2010 [employer]- All Rights Reserved Assessment & Plan - Diagnosis (1) Blood loss anemia Is this a current diagnosis for this admission?: Yes (2) Chest pain Qualifiers: Chest pain type: chest pain due to myocardial ischemia Ischemic chest pain type: stable angina pectoris Qualified Code(s): I20.8 - Other forms of angina pectoris Is this a current diagnosis for this admission?: Yes - Plan Summary Plan Summary: This is a 79-year-old male with chest pain and anemia. Currently he is on Coumadin for reported atherothrombotic disease. Surgery is consulted for work- up of his anemia. The patient had a colonoscopy this year by [facility]. I will request these records. It is unlikely that the patient will require a colonoscopy. The patient has been taking increased amounts of NSAIDs at home. This coupled with his Coumadin may be the reason for his anemia and heme positive stool. Patient will need his INR reversed prior to any intervention. We will follow this patient very closely with you.
[2019-08-21 08:00] LABS: INTERNATIONAL RATION (INR) 2.34; PROTHROMBIN TIME 26.1 SEC (11.4-15.4)
[2019-08-21] MEDS ORDERED: BUDESONIDE NEB 0.5 MG/2 ML AMPUL NEB SCH (08:00)
[2019-08-21 08:07] LABS: ANION GAP 7 (5-19); BLOOD UREA NITROGEN 45 mg/dL (7-20); CALCIUM 8.2 mg/dL (8.4-10.2); CARBON DIOXIDE 23 mmol/L (22-30); CHLORIDE 112 mmol/L (98-107); CHOLESTEROL 110.08 mg/dL (0-200); GLUCOSE 104 mg/dL (75-110); POTASSIUM 4.9 mmol/L (3.6-5.0); TRIGLYCERIDES 165 mg/dL (<150)
[2019-08-21 08:26] LABS: DIRECT LDL 46 mg/dL (<100)
[2019-08-21 08:29] LABS: HEMATOCRIT 22.6 % (37.9-51.0); MEAN CORPUSCULAR HEMOGLOBIN 23.7 pg (27.0-33.4); MEAN CORPUSCULAR VOLUME 77 fl (80-97); PLATELET COUNT 145 10^3/uL (150-450); RED BLOOD COUNT 2.95 10^6/uL (4.35-5.55); RED CELL DISTRIBUTION WIDTH 19.2 % (11.5-14.0); WHITE BLOOD COUNT 6.7 10^3/uL (4.0-10.5)
[2019-08-21] MEDS ORDERED: NORMAL SALINE 250 ML IV PRN ×2 (09:01)
[2019-08-21] MEDS: PANTOPRAZOLE SODIUM 40 MG VIAL IV SCH ×2 (09:26→21:05)
[2019-08-21] MEDS: DOCUSATE SODIUM 100 MG/10 ML UDC PO SCH ×2 (09:26→18:33)
[2019-08-21] MEDS ORDERED: FUROSEMIDE INJ/PF 20 MG/2 ML SDV IV ONE (11:30)
--- NOTE | 2019-08-21 12:39 | EKG REPORT ---
SEVERITY:- NORMAL ECG - SINUS RHYTHM : Confirmed by: Lex Romero 21-Aug-2019 12:38:33
[2019-08-21 19:34] LABS: ABSOLUTE EOSINOPHILS # (AUTO) 0.2 10^3/uL (0.0-0.6); ABSOLUTE LYMPHOCYTES (AUTO) 1.2 10^3/uL (0.5-4.7); ABSOLUTE MONOCYTES (AUTO) 0.7 10^3/uL (0.1-1.4); ABSOLUTE NEUT (AUTO) 7.3 10^3/uL (1.7-8.2); BASOPHILS % (AUTO) 0.4 % (0-2); EOSINOPHILS % (AUTO) 2.1 % (0-6); HEMATOCRIT 30.8 % (37.9-51.0); LYMPHOCYTES % (AUTO) 12.7 % (13-45); MEAN CORPUSCULAR HEMOGLOBIN 24.7 pg (27.0-33.4); MEAN CORPUSCULAR HGB CONC 32.2 g/dL (32.0-36.0); MEAN CORPUSCULAR VOLUME 77 fl (80-97); MONOCYTES % (AUTO) 7.5 % (3-13); PLATELET COUNT 135 10^3/uL (150-450); RED BLOOD COUNT 4.02 10^6/uL (4.35-5.55); RED CELL DISTRIBUTION WIDTH 19.1 % (11.5-14.0); SEGMENTED NEUTROPHILS % (AUTO) 77.3 % (42-78); TOTAL CELLS COUNTED % (AUTO) 100 %; WHITE BLOOD COUNT 9.4 10^3/uL (4.0-10.5)
[2019-08-21 19:39] LABS: HEMOGLOBIN 9.9 g/dL (13.5-17.0)
[2019-08-22] MEDS: IPRATROPIUM BROMIDE 0.02% NEB 0.5 MG/2.5 ML AMPUL NEB SCH ×4 (00:05→23:59)
[2019-08-22] MEDS: MORPHINE SULFATE 10 MG/ML INJ IV PRN ×3 (01:57→21:09)
[2019-08-22 03:21] LABS: HEMATOCRIT 29.1 % (37.9-51.0); HEMOGLOBIN 9.4 g/dL (13.5-17.0); MEAN CORPUSCULAR HEMOGLOBIN 24.9 pg (27.0-33.4); MEAN CORPUSCULAR HGB CONC 32.4 g/dL (32.0-36.0); MEAN CORPUSCULAR VOLUME 77 fl (80-97); PLATELET COUNT 127 10^3/uL (150-450); RED BLOOD COUNT 3.78 10^6/uL (4.35-5.55); RED CELL DISTRIBUTION WIDTH 19.4 % (11.5-14.0); WHITE BLOOD COUNT 6.9 10^3/uL (4.0-10.5)
[2019-08-22 03:33] LABS: INTERNATIONAL RATION (INR) 1.78; PROTHROMBIN TIME 20.9 SEC (11.4-15.4)
[2019-08-22] MEDS: PANTOPRAZOLE SODIUM 40 MG VIAL IV SCH ×2 (09:28→21:10)
[2019-08-22] MEDS: DOCUSATE SODIUM 100 MG/10 ML UDC PO SCH ×2 (09:28→17:37)
[2019-08-22] MEDS ORDERED: CARBOXYMETHYLCELLULOSE SOD 0.5% 0.4 ML DROPERETTE OU PRN (09:45)
[2019-08-22] MEDS ORDERED: (PENDING PHARMACY ID) (Lisinopril/Hydrochlorothiazide [Lisinopril-Hctz 10-12.5 Mg Tab] 1 E PO SCH (10:00)
--- NOTE | 2019-08-22 10:13 | PDOC PROGRESS REPORT ---
Subjective Progress Note for:: 08/22/19 Subjective:: No complaints. Patient denies any recent history of blood per rectum nor hematemesis nor melena. He does note that he had been taking some Motrin recently for lower back pain but no history of alcohol abuse. Reason For Visit: ACUTE BLOOD LOSS ANEMIA Physical Exam Vital Signs: Temp Pulse Resp BP Pulse Ox 98.1 F 79 14 114/56 L 96 08/22/19 07:54 08/22/19 08:30 08/22/19 08:30 08/22/19 07:54 08/22/19 08:30 Intake & Output 08/21/19 08/22/19 08/23/19 06:59 06:59 06:59 Intake Total 1103 2870 Output Total 500 0 Balance 603 2870 Weight 108.1 kg 108.4 kg General appearance: PRESENT: no acute distress, cooperative Respiratory exam: PRESENT: clear to auscultation audra Cardiovascular exam: PRESENT: RRR GI/Abdominal exam: PRESENT: other - Soft, protuberant lax abdomen but nondistended, nontender to palpation. Results Laboratory Results: 08/22/19 03:13 08/21/19 07:09 08/20/19 08/21/19 08/22/19 21:35 19:19 03:13 WBC 9.4 6.9 RBC 4.02 L 3.78 L Hgb 9.9 L D 9.4 L Hct 30.8 L 29.1 L MCV 77 L 77 L MCH 24.7 L 24.9 L MCHC 32.2 32.4 RDW 19.1 H 19.4 H Plt Count 135 L 127 L Seg Neutrophils % 77.3 Magnesium Blood Type O POSITIVE Antibody Screen NEGATIVE 08/22/19 03:13 WBC RBC Hgb Hct MCV MCH MCHC RDW Plt Count Seg Neutrophils % Magnesium 1.8 Blood Type Antibody Screen 08/20/19 08/21/19 08/21/19 20:54 : 07:09 Troponin I < 0.012 < 0.012 < 0.012 08/21/19 13:02 Troponin I < 0.012 Impressions: Chest X-Ray 08/20/19 20:41 IMPRESSION: Emphysema. Possible small left pleural effusion. copyright 2011 [employer]- All Rights Reserved Assessment & Plan - Diagnosis (1) Blood loss anemia Is this a current diagnosis for this admission?: Yes Plan: We will plan EGD and colonoscopy tomorrow. I have discussed with the patient the risk and benefits of the procedure including risk of bowel injury and bleeding. Patient understands and agrees to proceed. We will do a bowel prep today. Clear liquids today n.p.o. post midnight. - Time Time Spent with patient: Less than 15 minutes
--- NOTE | 2019-08-22 10:25 | PDOC PROGRESS REPORT ---
Subjective Progress Note for:: 08/22/19 Subjective:: SERGO DE LA VEGA is a 79 year old male who presents the emergency room with a one-week history of chest pain. He admits chest pain occurring with exertion over the last week. For the last 3 days his exertional chest pain has become associated with dyspnea on exertion and bilateral claudication. He describes the chest pain as an episodic, moderately intense substernal pressure/tightness without radiation. His symptoms resolve with rest. He denies other associated or accompanying signs and symptoms. He denies prior similar episodes. He admits that recently his began taking [id number] ibuprofen for his arthritis pain even though he is aware that this is not a good practice while taking Coumadin. He has not identified any other aggravating or ameliorating factors for his chest pain. In the emergency room he was found to have a negative initial cardiac ischemic evaluation but was noted to have an elevation of his BUN and creatinine greater than his previous levels and a hemoglobin of 6.1 with a guaiac positive stool specimen. His INR is 2.3. He was subsequently admitted to the hospital for further evaluation and treatment with a routine co nsultation to Dr. Solorzano for endoscopic evaluation. 08/22/2019. No acute events overnight. Patient has not had a bowel movement. Denies any melena or hematochezia. Feeling better today than yesterday. Reason For Visit: ACUTE BLOOD LOSS ANEMIA Physical Exam Vital Signs: Temp Pulse Resp BP Pulse Ox 98.1 F 79 14 114/56 L 96 08/22/19 07:54 08/22/19 08:30 08/22/19 08:30 08/22/19 07:54 08/22/19 08:30 Intake & Output 08/21/19 08/22/19 08/23/19 06:59 06:59 06:59 Intake Total 1103 2870 Output Total 500 0 Balance 603 2870 Weight 108.1 kg 108.4 kg General appearance: PRESENT: obese Respiratory exam: PRESENT: clear to auscultation audra, crackles - Bibasilar.. ABSENT: rales, rhonchi, wheezes Cardiovascular exam: PRESENT: RRR. ABSENT: diastolic murmur, rubs, systolic murmur Neurological exam: PRESENT: alert, awake, oriented to person, oriented to place, oriented to time, oriented to situation, CN II-XII grossly intact. ABSENT: motor sensory deficit Results Laboratory Results: 08/22/19 03:13 08/21/19 07:09 08/20/19 08/21/19 08/22/19 21:35 19:19 03:13 WBC 9.4 6.9 RBC 4.02 L 3.78 L Hgb 9.9 L D 9.4 L Hct 30.8 L 29.1 L MCV 77 L 77 L MCH 24.7 L 24.9 L MCHC 32.2 32.4 RDW 19.1 H 19.4 H Plt Count 135 L 127 L Seg Neutrophils % 77.3 Magnesium Blood Type O POSITIVE Antibody Screen NEGATIVE 08/22/19 03:13 WBC RBC Hgb Hct MCV MCH MCHC RDW Plt Count Seg Neutrophils % Magnesium 1.8 Blood Type Antibody Screen 08/20/19 08/21/19 08/21/19 20:54 01:19 07:09 Troponin I < 0.012 < 0.012 < 0.012 08/21/19 13:02 Troponin I < 0.012 Impressions: Chest X-Ray 08/20/19 20:41 IMPRESSION: Emphysema. Possible small left pleural effusion. copyright 2010 [employer]- All Rights Reserved Assessment and Plan - Diagnosis (1) Acute blood loss anemia Is this a current diagnosis for this admission?: Yes Plan: Most likely upper GI bleed due to NSAID abuse complicated by chronic anticoagulation. Status post 4 PRBC transfusion on 08/22/2019. Patient has not had a bowel movement since yesterday. H&H stable. Patient has had outpatient colonoscopy at [facility] patient has had colonoscopy this year and reporting they found a small polyp otherwise negative. Surgery consulted. No colonoscopy scheduled at this point. Continue monitoring H&H, vitals, monitor for melena, hematochezia or hematemesis. Avoid NSAIDs. (2) Acute kidney injury superimposed on chronic kidney disease Is this a current diagnosis for this admission?: Yes Plan: Improving. Prerenal. Most likely due to intravascular volume depletion. Basel ine creatinine 1.5. Electrolytes WNL. Monitor volume status, avoid nephrotoxic meds. Daily BMP. (3) Chronic anticoagulation Is this a current diagnosis for this admission?: Yes Plan: As per patient he has had history of abdominal aortic thrombosis status thrombectomy several years ago. He is on lifelong Coumadin therapy. Hold Coumadin. Resume once H&H is stable and no sign of bleeding with a goal INR of 2-2.5. (4) Hyperkalemia Is this a current diagnosis for this admission?: Yes Plan: Resolved. (5) Hypothyroidism Qualifiers: Hypothyroidism type: unspecified Qualified Code(s): E03.9 - Hypothyroidism, unspecified Is this a current diagnosis for this admission?: Yes Plan: Restart home meds. (6) CAD (coronary artery disease) Qualifiers: Coronary Disease-Associated Artery/Lesion type: hoh artery [place] vs. transplanted heart: hoh heart Associated angina: with stable angina Qualified Code(s): I25.118 - Atherosclerotic heart disease of [place] coronary artery with other forms of angina pectoris Is this a current diagnosis for this admission?: Yes Plan: Status post PCI x2 stents. Denies any anginal symptoms. Continue antiplatelets, JEANNE, beta-blockers and statins. (7) Chronic obstructive pulmonary disease (COPD) Qualifiers: COPD type: unspecified COPD Qualified Code(s): J44.9 - Chronic obstructive pulmonary disease, unspecified Is this a current diagnosis for this admission?: Yes (8) Congestive heart failure Qualifiers: Heart failure type: diastolic Heart failure chronicity: chronic Qualified Code(s): I50.32 - Chronic diastolic (congestive) heart failure Is this a current diagnosis for this admission?: Yes Plan: History of systolic heart failure. Ejection fraction 45% as of 2011. No recent echo available. Appears compensated. No sign of volume overload. Cardiac diet, JEANNE, beta-blockers, diuretics, strict in and out. (9) HTN (hypertension) Qualifiers: Hypertension type: essential hypertension Qualified Code(s): I10 - Essential (primary) hypertension Is this a current diagnosis for this admission?: Yes Plan: Normotensive. Euvolemic. Home meds are lisinopril 10 mg p.o. daily, hydrochlorothiazide 12.5 mg p.o. daily, atenolol 50 mg p.o. daily. Restart atenolol, hydrochlorothiazide and lisinopril. Monitor kidney function. If worsening kidney function hold hydrochlorothiazide and lisinopril. PRN IV hydralazine and metoprolol. (10) Hypercholesteremia Is this a current diagnosis for this admission?: Yes Plan: Restart home meds.
[2019-08-22] MEDS: ATENOLOL 50 MG TABLET PO SCH (10:32)
[2019-08-22] MEDS: LEVOTHYROXINE SODIUM 0.05 MG TABLET PO SCH (10:32)
[2019-08-22] MEDS: LISINOPRIL 10 MG TABLET PO SCH (10:57)
[2019-08-22] MEDS ORDERED: HYDROCHLOROTHIAZIDE 12.5 MG TABLET PO SCH (11:00)
[2019-08-22] MEDS ORDERED: PEG 3350/NA SULF,BICARB,CL/KCL 4000 ML PO ONE ×2 (11:00→23:59)
[2019-08-22 11:34] LABS: HEMATOCRIT 30.4 % (37.9-51.0); HEMOGLOBIN 9.7 g/dL (13.5-17.0); MEAN CORPUSCULAR HEMOGLOBIN 24.7 pg (27.0-33.4); MEAN CORPUSCULAR VOLUME 77 fl (80-97); PLATELET COUNT 121 10^3/uL (150-450); RED BLOOD COUNT 3.94 10^6/uL (4.35-5.55); RED CELL DISTRIBUTION WIDTH 19.6 % (11.5-14.0); WHITE BLOOD COUNT 6.8 10^3/uL (4.0-10.5)
[2019-08-22] MEDS: ATORVASTATIN CALCIUM 40 MG TABLET PO SCH (22:07)
[2019-08-22] MEDS ORDERED: PEG 3350/NA SULF,BICARB,CL/KCL 4000 ML ONE (23:27)
[2019-08-23] MEDS: MORPHINE SULFATE 10 MG/ML INJ IV PRN ×2 (01:20→09:45)
[2019-08-23 01:22] LABS: ANION GAP 9 (5-19); BLOOD UREA NITROGEN 34 mg/dL (7-20); CALCIUM 8.3 mg/dL (8.4-10.2); CARBON DIOXIDE 27 mmol/L (22-30); CHLORIDE 102 mmol/L (98-107); GLUCOSE 102 mg/dL (75-110); POTASSIUM 4.3 mmol/L (3.6-5.0)
[2019-08-23 06:29] LABS: ABSOLUTE EOSINOPHILS # (AUTO) 0.2 10^3/uL (0.0-0.6); ABSOLUTE LYMPHOCYTES (AUTO) 1.1 10^3/uL (0.5-4.7); ABSOLUTE MONOCYTES (AUTO) 0.6 10^3/uL (0.1-1.4); ABSOLUTE NEUT (AUTO) 4.4 10^3/uL (1.7-8.2); BASOPHILS % (AUTO) 0.5 % (0-2); EOSINOPHILS % (AUTO) 3.5 % (0-6); HEMATOCRIT 30.4 % (37.9-51.0); HEMOGLOBIN 9.7 g/dL (13.5-17.0); LYMPHOCYTES % (AUTO) 17.7 % (13-45); MEAN CORPUSCULAR HEMOGLOBIN 24.7 pg (27.0-33.4); MEAN CORPUSCULAR VOLUME 77 fl (80-97); MONOCYTES % (AUTO) 9.8 % (3-13); PLATELET COUNT 107 10^3/uL (150-450); RED BLOOD COUNT 3.94 10^6/uL (4.35-5.55); RED CELL DISTRIBUTION WIDTH 20.3 % (11.5-14.0); SEGMENTED NEUTROPHILS % (AUTO) 68.5 % (42-78); TOTAL CELLS COUNTED % (AUTO) 100 %; WHITE BLOOD COUNT 6.4 10^3/uL (4.0-10.5)
[2019-08-23 06:39] LABS: ALBUMIN 3.3 g/dL (3.5-5.0); ALKALINE PHOSPHATASE 93 U/L (38-126); ANION GAP 9 (5-19); ASPARTATE AMINO TRANSFERASE 29 U/L (17-59); BILIRUBIN,DIRECT 0.1 mg/dL (0.0-0.4); BILIRUBIN,TOTAL 0.8 mg/dL (0.2-1.3); BLOOD UREA NITROGEN 33 mg/dL (7-20); CALCIUM 8.2 mg/dL (8.4-10.2); CARBON DIOXIDE 28 mmol/L (22-30); CHLORIDE 102 mmol/L (98-107); GLUCOSE 96 mg/dL (75-110); INTERNATIONAL RATION (INR) 1.52; PROTHROMBIN TIME 18.5 SEC (11.4-15.4); TOTAL PROTEIN 6.2 g/dL (6.3-8.2)
[2019-08-23] MEDS: IPRATROPIUM BROMIDE 0.02% NEB 0.5 MG/2.5 ML AMPUL NEB SCH ×2 (08:01→16:03)
--- NOTE | 2019-08-23 09:30 | PDOC PROGRESS REPORT ---
Subjective Progress Note for:: 08/23/19 Subjective:: SERGO DE LA VEGA is a 79 year old male who presents the emergency room with a one-week history of chest pain. He admits chest pain occurring with exertion over the last week. For the last 3 days his exertional chest pain has become associated with dyspnea on exertion and bilateral claudication. He describes the chest pain as an episodic, moderately intense substernal pressure/tightness without radiation. His symptoms resolve with rest. He denies other associated or accompanying signs and symptoms. He denies prior similar episodes. He admits that recently his began taking [id number] ibuprofen for his arthritis pain even though he is aware that this is not a good practice while taking Coumadin. He has not identified any other aggravating or ameliorating factors for his chest pain. In the emergency room he was found to have a negative initial cardiac ischemic evaluation but was noted to have an elevation of his BUN and creatinine greater than his previous levels and a hemoglobin of 6.1 with a guaiac positive stool specimen. His INR is 2.3. He was subsequently admitted to the hospital for further evaluation and treatment with a routine co nsultation to Dr. Solorzano for endoscopic evaluation. 08/22/2019. No acute events overnight. Patient has not had a bowel movement. Denies any melena or hematochezia. Feeling better today than yesterday. 08/23/2019. No acute events overnight. Patient had 2 bowel movements. Nonbloody. Denies any fever, chills, nausea, vomiting, diarrhea, constipation or any urinary symptoms. Patient is scheduled to have upper and lower GI endoscopy today. Reason For Visit: ACUTE BLOOD LOSS ANEMIA Physical Exam Vital Signs: Temp Pulse Resp BP Pulse Ox 97.6 F 95 14 101/49 L 90 L 08/23/19 07:27 08/23/19 08:01 08/23/19 08:01 08/23/19 07:27 08/23/19 08:01 Intake & Output 08/22/19 08/23/19 08/24/19 06:59 06:59 06:59 Intake Total 2870 1700 Output Total 0 500 Balance 2870 1200 Weight 108.4 kg 110.2 kg General appearance: PRESENT: no acute distress, obese, well-developed, well- nourished Respiratory exam: PRESENT: clear to auscultation audra. ABSENT: rales, rhonchi, wheezes Cardiovascular exam: PRESENT: RRR. ABSENT: diastolic murmur, rubs, systolic murmur GI/Abdominal exam: PRESENT: distended, normal bowel sounds, soft. ABSENT: guarding, mass, organolmegaly, rebound, tenderness Neurological exam: PRESENT: alert, awake, oriented to person, oriented to place, oriented to time, oriented to situation, CN II-XII grossly intact. ABSENT: mot or sensory deficit Results Laboratory Results: 08/23/19 05:37 08/23/19 05:37 08/22/19 08/23/19 08/23/19 11:04 00:53 05:37 WBC 6.8 6.4 RBC 3.94 L 3.94 L Hgb 9.7 L 9.7 L Hct 30.4 L 30.4 L MCV 77 L 77 L MCH 24.7 L 24.7 L MCHC 32.0 32.0 RDW 19.6 H 20.3 H Plt Count 121 L 107 L Seg Neutrophils % 68.5 Sodium 138.2 Potassium 4.3 Chloride 102 Carbon Dioxide 27 Anion Gap 9 BUN 34 H Creatinine 1.72 H Est GFR ( Amer) 47 L Glucose 102 Calcium 8.3 L Magnesium 1.6 Total Bilirubin AST Alkaline Phosphatase Total Protein Albumin 08/23/19 05:37 WBC RBC Hgb Hct MCV MCH MCHC RDW Plt Count Seg Neutrophils % Sodium 139.1 Potassium 4.0 Chloride 102 Carbon Dioxide 28 Anion Gap 9 BUN 33 H Creatinine 1.73 H Est GFR ( Amer) 46 L Glucose 96 Calcium 8.2 L Magnesium 1.8 Total Bilirubin 0.8 AST 29 Alkaline Phosphatase 93 Total Protein 6.2 L Albumin 3.3 L 08/20/19 08/21/19 08/21/19 20:54 01:19 07:09 Troponin I < 0.012 < 0.012 < 0.012 08/21/19 13:02 Troponin I < 0.012 Impressions: Chest X-Ray 08/20/19 20:41 IMPRESSION: Emphysema. Possible small left pleural effusion. copyright 2010 [employer]- All Rights Reserved Assessment and Plan - Diagnosis (1) Acute GI bleeding Is this a current diagnosis for this admission?: Yes Plan: No recurrence. H&H WNL. Most likely upper GI bleed due to NSAID abuse complicated by chronic anticoagulation. Status post 4 PRBC transfusion on 08/22/2019. Patient has not had a bowel movement since yesterday. H&H stable. Patient has had outpatient colonoscopy at [facility] patient has had colonoscopy this year and reporting they found a small polyp otherwise negative. Surgery consulted. Upper and lower GI endoscopy today. Continue monitoring H&H, vitals, monitor for melena, hematochezia or hematemesis. Avoid NSAIDs. (2) Acute kidney injury superimposed on chronic kidney disease Is this a current diagnosis for this admission?: Yes Plan: Improving. Prerenal. Most likely due to intravascular volume depletion. Baseline creatinine 1.5. Electrolytes WNL. Monitor volume status, avoid nephrotoxic meds. Daily BMP. (3) Chronic anticoagulation Is this a current diagnosis for this admission?: Yes Plan: As per patient he has had history of abdominal aortic thrombosis status thrombectomy several years ago. He is on lifelong Coumadin therapy. Hold Coumadin. Started on Lovenox and bridge to Coumadin once H&H is stable and no sign of bleeding with a goal INR of 2-2.5. (4) Hyperkalemia Is this a current diagnosis for this admission?: Yes Plan: Resolved. (5) Hypothyroidism Qualifiers: Hypothyroidism type: unspecified Qualified Code(s): E03.9 - Hypothyroidism, unspecified Is this a current diagnosis for this admission?: Yes Plan: TSH WNL. Restart home meds. (6) CAD (coronary artery disease) Qualifiers: Coronary Disease-Associated Artery/Lesion type: [place] artery [place] vs. transplanted heart: [place] heart Associated angina: with stable angina Qualified Code(s): I25.118 - Atherosclerotic heart disease of [place] coronary artery with other forms of angina pectoris Is this a current diagnosis for this admission?: Yes Plan: Status post PCI x2 stents. Denies any anginal symptoms. Continue antiplatelets, JEANNE, beta-blockers and statins. (7) Chronic obstructive pulmonary disease (COPD) Qualifiers: COPD type: unspecified COPD Qualified Code(s): J44.9 - Chronic obstructive pulmonary disease, unspecified Is this a current diagnosis for this admission?: Yes Plan: Does not seem to be acutely exacerbated. SPO2 WNL. Restart home meds. (8) Congestive heart failure Qualifiers: Heart failure type: diastolic Heart failure chronicity: chronic Qualified Code(s): I50.32 - Chronic diastolic (congestive) heart failure Is this a current diagnosis for this admission?: Yes Plan: History of systolic heart failure. Ejection fraction 45% as of 2011. No recent echo available. Appears compensated. No sign of volume overload. Cardiac diet, JEANNE, beta-blockers, diuretics, strict in and out. (9) HTN (hypertension) Qualifiers: Hypertension type: essential hypertension Qualified Code(s): I10 - Essential (primary) hypertension Is this a current diagnosis for this admission?: Yes Plan: Normotensive. Euvolemic. Noted to have soft BPs. Home meds are lisinopril 10 mg p.o. daily, hydrochlorothiazide 12.5 mg p.o. daily, atenolol 50 mg p.o. daily. Restart atenolol, and lisinopril. Hold hydrochlorothiazide. PRN IV hydralazine and metoprolol. (10) Hypercholesteremia Is this a current diagnosis for this admission?: Yes Plan: Restart home meds.
--- NOTE | 2019-08-23 09:37 | PDOC PROGRESS REPORT ---
Subjective Progress Note for:: 08/23/19 Subjective:: Patient completed bowel prep, with minimal particulate stool. Coumadin currently held. Reason For Visit: ACUTE BLOOD LOSS ANEMIA Physical Exam Vital Signs: Temp Pulse Resp BP Pulse Ox 97.6 F 95 14 101/49 L 90 L 08/23/19 07:27 08/23/19 08:01 08/23/19 08:01 08/23/19 07:27 08/23/19 08:01 Intake & Output 08/22/19 08/23/19 08/24/19 06:59 06:59 06:59 Intake Total 2870 1700 Output Total 0 500 Balance 2870 1200 Weight 108.4 kg 110.2 kg General appearance: PRESENT: no acute distress GI/Abdominal exam: PRESENT: other - Abdomen is soft, nontender no peritoneal signs no rigidity. Results Laboratory Results: 08/23/19 05:37 08/23/19 05:37 08/22/19 08/23/19 08/23/19 11:04 00:53 05:37 WBC 6.8 6.4 RBC 3.94 L 3.94 L Hgb 9.7 L 9.7 L Hct 30.4 L 30.4 L MCV 77 L 77 L MCH 24.7 L 24.7 L MCHC 32.0 32.0 RDW 19.6 H 20.3 H Plt Count 121 L 107 L Seg Neutrophils % 68.5 Sodium 138.2 Potassium 4.3 Chloride 102 Carbon Dioxide 27 Anion Gap 9 BUN 34 H Creatinine 1.72 H Est GFR ( Amer) 47 L Glucose 102 Calcium 8.3 L Magnesium 1.6 Total Bilirubin AST Alkaline Phosphatase Total Protein Albumin 08/23/19 05:37 WBC RBC Hgb Hct MCV MCH MCHC RDW Plt Count Seg Neutrophils % Sodium 139.1 Potassium 4.0 Chloride 102 Carbon Dioxide 28 Anion Gap 9 BUN 33 H Creatinine 1.73 H Est GFR ( Amer) 46 L Glucose 96 Calcium 8.2 L Magnesium 1.8 Total Bilirubin 0.8 AST 29 Alkaline Phosphatase 93 Total Protein 6.2 L Albumin 3.3 L 08/20/19 08/21/19 08/21/19 20:54 01:19 07:09 Troponin I < 0.012 < 0.012 < 0.012 08/21/19 13:02 Troponin I < 0.012 Impressions: Chest X-Ray 08/20/19 20:41 IMPRESSION: Emphysema. Possible small left pleural effusion. copyright 2010 [employer]- All Rights Reserved Assessment & Plan - Diagnosis (1) Acute GI bleeding Is this a current diagnosis for this admission?: Yes Plan: Impression: Hemodynamically stable, no overt signs of bleeding; hemoglobin stable at 8.7. PT 18.5. Recommendations: 1. We will proceed with upper and lower endoscopy on the fifth floor later today. The mechanics of the operation, as well as risk benefits alternatives were explained to the patient. Expressed understanding agrees to proceed. 2. Patient reports he underwent colonoscopy with findings of polyp last year by Dr. Park, [employer] job [employer], [facility]. (2) Chronic anticoagulation Is this a current diagnosis for this admission?: Yes - Time Time Spent with patient: 15-24 minutes
[2019-08-23] MEDS: PANTOPRAZOLE SODIUM 40 MG VIAL IV SCH ×2 (09:41→21:16)
[2019-08-23] MEDS: DOCUSATE SODIUM 100 MG/10 ML UDC PO SCH (10:09)
[2019-08-23] MEDS: LISINOPRIL 10 MG TABLET PO SCH (10:09)
[2019-08-23] MEDS: LEVOTHYROXINE SODIUM 0.05 MG TABLET PO SCH (10:09)
[2019-08-23] MEDS: ATENOLOL 50 MG TABLET PO SCH (10:10)
[2019-08-23] MEDS ORDERED: DIPHENHYDRAMINE HCL 50 MG/ML VIAL ONE (13:10)
[2019-08-23] MEDS ORDERED: ONDANSETRON HCL INJ/PF 4 MG/2 ML SDV ONE (13:10)
[2019-08-23] MEDS ORDERED: NALOXONE HCL INJ/PF 0.4 MG/1 ML SDV ONE (13:11)
[2019-08-23] MEDS ORDERED: EPINEPHRINE INJ 1 MG/10 ML DISP.SYRIN ONE (13:11)
[2019-08-23] MEDS ORDERED: FLUMAZENIL INJ 0.5 MG/5 ML VIAL ONE (13:11)
[2019-08-23] MEDS ORDERED: GLUCAGON,HUMAN RECOMB 1 MG INJ ONE (13:11)
[2019-08-23] MEDS: MIDAZOLAM 2 MG/2 ML INJ ONE ×3 (13:16→13:34)
[2019-08-23] MEDS: FENTANYL CITRATE INJ/PF 100 MCG/2 ML AMPUL ONE ×2 (13:18→13:39)
--- NOTE | 2019-08-23 14:06 | Operative Report ---
Operative Report DATE OF SURGERY: 08/23/19 PREOPERATIVE DIAGNOSIS: GI bleed; history of colon polyps POSTOPERATIVE DIAGNOSIS: 1. No endoscopic evidence of acute bleeding or clot. 2. Essentially normal upper endoscopy. 3. Incomplete bowel prep; consider diverticulosis of the left and sigmoid colon. 4. Multiple small upper rectal polyps OPERATION: 1. Esophagogastroduodenoscopy. 2. Total colonoscopy to cecum. 3. Upper rectal polypectomy x2 SURGEON: SUNDEEP MACE ANESTHESIA: Moderate Sedation TISSUE REMOVED OR ALTERED: Polyps x2 COMPLICATIONS: None ESTIMATED BLOOD LOSS: Scant INTRAOPERATIVE FINDINGS: See below PROCEDURE: Patient taken from the third floor to the endoscopy suite for for conscious sedation was induced. Patient placed in semirecumbent left lateral decubitus position Surgical plan surgical timeout were conducted. The flexible adult upper endoscope was advanced to the oropharynx, down the esophagus, through the stomach and into the first and second portions of the duodenum. This is well-tolerated by the patient. There was no active bleeding, or clot seen. There was no significant pathology seen in the esophagus, stomach or duodenum. No biopsies were taken. No polyps removed. Scope was withdrawn with the patient's oropharynx. He tolerated the procedure well. The patient was then placed in the extreme left lateral cubitus position. A rectal exam was performed which revealed no visible or palpable anorectal pathology. The flexible adult colonoscope was advanced from the anal rectal canal all the way to the cecum. The bowel prep was poor. However we were able to advance the scope all the way to the cecum. Ileocecal valve was visualized, and the appendiceal orifice photographed. The scope was withdrawn the length of the colon. Again due to inadequate bowel prep, visualization of the chronic lumen was limited. However there was no evidence of tumor, stricture, bleeding or clot. Were extensive diverticulosis of the left colon and sigmoid colon. No evidence of stenosis. In the upper rectum at approximately 18 cm from the anal verge were multiple small flat polyps 2 of which were biopsied with a cold forceps device and sent to pathology as upper rectal polyps. Clinically these are most consistent with hyperplastic polyps. The scope was brought back to the patient's anal rectal canal. No other pathology seen. Patient tolerated the procedure well. Recommendations: 1. May resume Coumadin as indicated by the primary care team 2. Patient be appropriate candidate for follow-up colonoscopy in 3 to 5 years 3. Surgery will sign off; reconsult as needed.
[2019-08-23 15:04] LABS: HEMOGLOBIN 9.4 g/dL (13.5-17.0); MEAN CORPUSCULAR HEMOGLOBIN 24.7 pg (27.0-33.4); MEAN CORPUSCULAR HGB CONC 32.4 g/dL (32.0-36.0); MEAN CORPUSCULAR VOLUME 76 fl (80-97); PLATELET COUNT 106 10^3/uL (150-450); RED BLOOD COUNT 3.81 10^6/uL (4.35-5.55); RED CELL DISTRIBUTION WIDTH 20.2 % (11.5-14.0); WHITE BLOOD COUNT 5.4 10^3/uL (4.0-10.5)
[2019-08-23] MEDS: DOCUSATE SODIUM 100 MG CAPSULE PO SCH (17:01)
[2019-08-23 17:42] LABS: APPEARANCE,URINE CLEAR; BILIRUBIN,URINE NEGATIVE (NEGATIVE); COLOR,URINE YELLOW; GLUCOSE, URINE NEGATIVE (NEGATIVE); KETONES,URINE NEGATIVE (NEGATIVE); LEUKOCYTE ESTERASE,URINE NEGATIVE (NEGATIVE); NITRITE,URINE NEGATIVE (NEGATIVE); PROTEIN,URINE NEGATIVE (NEGATIVE); URINE SPECIFIC GRAVITY 1.009; UROBILINOGEN,URINE NEGATIVE mg/dL (<2.0)
[2019-08-23] MEDS ORDERED: ENOXAPARIN SODIUM INJ 120 MG/0.8 ML DISP.SYRIN SUBCUT SCH (18:00)
[2019-08-23] MEDS: ATORVASTATIN CALCIUM 40 MG TABLET PO SCH (21:16)
[2019-08-24] MEDS: IPRATROPIUM BROMIDE 0.02% NEB 0.5 MG/2.5 ML AMPUL NEB SCH ×3 (00:13→15:42)
[2019-08-24 05:25] LABS: ABSOLUTE EOSINOPHILS # (AUTO) 0.1 10^3/uL (0.0-0.6); ABSOLUTE LYMPHOCYTES (AUTO) 1.1 10^3/uL (0.5-4.7); ABSOLUTE MONOCYTES (AUTO) 0.5 10^3/uL (0.1-1.4); ABSOLUTE NEUT (AUTO) 3.9 10^3/uL (1.7-8.2); BASOPHILS % (AUTO) 0.6 % (0-2); EOSINOPHILS % (AUTO) 2.6 % (0-6); HEMATOCRIT 26.7 % (37.9-51.0); HEMOGLOBIN 8.6 g/dL (13.5-17.0); MEAN CORPUSCULAR HEMOGLOBIN 24.7 pg (27.0-33.4); MEAN CORPUSCULAR HGB CONC 32.3 g/dL (32.0-36.0); MEAN CORPUSCULAR VOLUME 77 fl (80-97); PLATELET COUNT 112 10^3/uL (150-450); RED BLOOD COUNT 3.49 10^6/uL (4.35-5.55); RED CELL DISTRIBUTION WIDTH 20.2 % (11.5-14.0); SEGMENTED NEUTROPHILS % (AUTO) 68.8 % (42-78); TOTAL CELLS COUNTED % (AUTO) 100 %; WHITE BLOOD COUNT 5.7 10^3/uL (4.0-10.5)
[2019-08-24 05:36] LABS: INTERNATIONAL RATION (INR) 1.43; PROTHROMBIN TIME 17.6 SEC (11.4-15.4)
[2019-08-24 05:49] LABS: ALBUMIN 2.8 g/dL (3.5-5.0); ALKALINE PHOSPHATASE 102 U/L (38-126); ANION GAP 8 (5-19); ASPARTATE AMINO TRANSFERASE 23 U/L (17-59); BILIRUBIN,DIRECT 0.2 mg/dL (0.0-0.4); BILIRUBIN,TOTAL 0.4 mg/dL (0.2-1.3); BLOOD UREA NITROGEN 31 mg/dL (7-20); CARBON DIOXIDE 27 mmol/L (22-30); CHLORIDE 107 mmol/L (98-107); GLUCOSE 143 mg/dL (75-110); POTASSIUM 3.9 mmol/L (3.6-5.0); TOTAL PROTEIN 5.4 g/dL (6.3-8.2)
[2019-08-24] MEDS ORDERED: ENOXAPARIN SODIUM INJ 120 MG/0.8 ML DISP.SYRIN SUBCUT SCH (06:00)
[2019-08-24] MEDS: LEVALBUTEROL HCL NEB 0.63 MG/3 ML AMPUL NEB PRN (08:09)
[2019-08-24] MEDS: PANTOPRAZOLE SODIUM 40 MG VIAL IV SCH (09:10)
[2019-08-24] MEDS: ATENOLOL 50 MG TABLET PO SCH (09:10)
[2019-08-24] MEDS: MORPHINE SULFATE 10 MG/ML INJ IV PRN ×3 (09:10→21:20)
[2019-08-24] MEDS: LEVOTHYROXINE SODIUM 0.05 MG TABLET PO SCH (09:10)
[2019-08-24] MEDS: LISINOPRIL 10 MG TABLET PO SCH (09:10)
[2019-08-24] MEDS: DOCUSATE SODIUM 100 MG CAPSULE PO SCH ×2 (09:10→17:10)
--- NOTE | 2019-08-24 16:49 | PDOC PROGRESS REPORT ---
Subjective Progress Note for:: 08/24/19 Subjective:: No adverse events overnight. No new complaints. Vital signs been stable. No bleeding. No abdominal pain. Reason For Visit: ACUTE BLOOD LOSS ANEMIA Physical Exam Vital Signs: Temp Pulse Resp BP Pulse Ox 97.7 F 83 14 128/57 H 94 08/24/19 15:42 08/24/19 15:43 08/24/19 15:43 08/24/19 15:42 08/24/19 15:43 Intake & Output 08/23/19 08/24/19 08/25/19 06:59 06:59 06:59 Intake Total 1700 240 870 Output Total 500 926 Balance 1200 -686 870 Weight 110.2 kg 107.6 kg 107.6 kg General appearance: PRESENT: no acute distress, cooperative, disheveled, obese Respiratory exam: PRESENT: clear to auscultation audra, symmetrical, unlabored. ABSENT: accessory muscle use, chest wall tenderness, crackles, prolonged expiratory phas, rhonchi, tachypnea, wheezes Cardiovascular exam: PRESENT: RRR, +S1, +S2 Pulses: PRESENT: normal carotid pulses Vascular exam: PRESENT: normal capillary refill GI/Abdominal exam: PRESENT: normal bowel sounds, soft. ABSENT: distended, guarding, rebound, tenderness Extremities exam: ABSENT: clubbing, pedal edema Musculoskeletal exam: ABSENT: deformity Neurological exam: PRESENT: alert, awake, oriented to person, oriented to place, oriented to situation Psychiatric exam: PRESENT: appropriate affect, normal mood Skin exam: PRESENT: dry, warm Results Laboratory Results: 08/24/19 04:08 08/24/19 04:08 08/23/19 08/24/19 08/24/19 17:30 04:08 04:08 WBC 5.7 RBC 3.49 L Hgb 8.6 L Hct 26.7 L MCV 77 L MCH 24.7 L MCHC 32.3 RDW 20.2 H Plt Count 112 L Seg Neutrophils % 68.8 Sodium 142.3 Potassium 3.9 Chloride 107 Carbon Dioxide 27 Anion Gap 8 BUN 31 H Creatinine 1.91 H Est GFR ( Amer) 41 L Glucose 143 H Calcium 8.0 L Total Bilirubin 0.4 AST 23 Alkaline Phosphatase 102 Total Protein 5.4 L Albumin 2.8 L Urine Color YELLOW Urine Appearance CLEAR Urine pH 5.0 Ur Specific [place] 1.009 Urine Protein NEGATIVE Urine Glucose (UA) NEGATIVE Urine Ketones NEGATIVE Urine Blood NEGATIVE Urine Nitrite NEGATIVE Ur Leukocyte Esterase NEGATIVE Urine WBC (Auto) 1 Urine RBC (Auto) 0 08/20/19 08/21/19 08/21/19 20:54 01:19 07:09 Troponin I < 0.012 < 0.012 < 0.012 08/21/19 13:02 Troponin I < 0.012 Impressions: Chest X-Ray 08/20/19 20:41 IMPRESSION: Emphysema. Possible small left pleural effusion. copyright 2010 [employer]- All Rights Reserved Assessment and Plan - Diagnosis (1) Acute GI bleeding Is this a current diagnosis for this admission?: Yes Plan: Most likely due to some chronic low-level blood loss due to anticoagulation, possibly as result of some of the polyps that were removed. No active bleeding was seen. Hemoglobin has remained stable. (2) Blood loss anemia Is this a current diagnosis for this admission?: Yes Plan: Resolved (3) Chronic anticoagulation Is this a current diagnosis for this admission?: Yes Plan: We have resumed his Coumadin. If he is trending back up tomorrow we will probably be able to resume his usual dose. (4) Acute kidney injury superimposed on chronic kidney disease Is this a current diagnosis for this admission?: Yes Plan: Resolved - Time Time Spent with patient: 15-24 minutes
[2019-08-24] MEDS: ENOXAPARIN SODIUM INJ 120 MG/0.8 ML DISP.SYRIN SUBCUT SCH (17:06)
[2019-08-24] MEDS ORDERED: OXYCODONE-ACETAMINOPHEN 5-325 MG TABLET PO PRN (18:23)
[2019-08-24] MEDS: ONDANSETRON HCL INJ/PF 4 MG/2 ML SDV IV PRN (20:07)
[2019-08-24] MEDS ORDERED: WARFARIN SODIUM 7.5 MG TABLET PO SCH (22:00)
[2019-08-24 22:13] LABS: ALBUMIN 3.8 g/dL (3.5-5.0); ALKALINE PHOSPHATASE 116 U/L (38-126); ANION GAP 10 (5-19); ASPARTATE AMINO TRANSFERASE 44 U/L (17-59); BILIRUBIN,DIRECT 0.3 mg/dL (0.0-0.4); BILIRUBIN,TOTAL 0.8 mg/dL (0.2-1.3); BLOOD UREA NITROGEN 32 mg/dL (7-20); CARBON DIOXIDE 25 mmol/L (22-30); CHLORIDE 107 mmol/L (98-107); GLUCOSE 163 mg/dL (75-110); POTASSIUM 4.4 mmol/L (3.6-5.0); TOTAL PROTEIN 7.1 g/dL (6.3-8.2)
--- NOTE | 2019-08-24 22:52 | RADIOLOGY REPORT (SQ) ---
EXAM DESCRIPTION: CLINICAL HISTORY: 79 years Male abdominal pain. EGD/COLONOSCOPY 08/23/19 COMPARISON: CT 07/12/2014 and 03/25/2014. TECHNIQUE: Axial images without IV contrast. Sagittal coronal reconstruction. This exam was performed according to our departmental dose-optimization program, which includes automated exposure control, adjustment of the mA and/or kV according to patient size and/or use of iterative reconstruction technique.. FINDINGS: [id number] left cardiomegaly. Bilateral pleural effusions, [id number] on the left mild on the right additional nonspecific groundglass opacities. Rule out CHF. Liver mildly dense. 57 Hounsfield units. Obviously changed since 2014 when demonstrated diffuse fatty liver 20 Hounsfield units. No suspicious focal hepatic abnormalities. Left lobe of the liver bulges anteriorly similar to previous studies. Spleen, pancreas, adrenal glands are unremarkable. Cholecystectomy. No suspicious biliary dilatation. Heavily atherosclerotic abdominal aorta. Atherosclerotic aortic branches. Bilateral renal atrophy. Multiple renal cysts. No significant change. Significant gastric distention. Enteric tube with the tip in the fundus of the stomach. May be advanced. The stomach bulges anteriorly was very thin anterior abdominal wall musculature. The bulge has worsened since 2014. There is moderate proximal small bowel dilatation. There are dilated loops of bowel inferior to the stomach which are probably small bowel loops and causes anterior abdominal wall stretching. Distal small bowel loops are not dilated. Transition zone not clearly identified. Nondilated colon with mild increased stool. CT of the pelvis demonstrates significantly distended urinary bladder. Prostate not enlarged. [id number] sigmoid diverticulosis. No acute distal colonic abnormality.. Atherosclerotic disease. Previous vascular surgery. Bilateral iliac grafts. IMPRESSION: 1. Recent colonoscopy and EGD. The colon is grossly unremarkable. There is significant dilatation of the stomach and proximal small bowel with air suspicious for small bowel obstruction. Distal small bowel loops are not dilated. Enteric tube is seen in the proximal stomach. May be advanced further for better drainage of the gastric contents. 2. There is significant thinning of the anterior abdominal wall and anterior bulge right greater than left of the stomach and small bowel loops. There is no true hernia. This bulge has increased since 2014. 3. Chronic renal atrophy with renal cysts. No acute renal abnormality. 4. Liver parenchyma appears obviously denser since 2014. This could represent resolution of previous fatty infiltration. However, this can also represent new hemachromatosis. 5. Diffuse atherosclerotic disease. 6. Bilateral pleural effusions greater on the left. Nonspecific groundglass opacities in the lung bases. Rule out CHF. There is mild left cardiomegaly. 7. Distended urinary bladder.
[2019-08-24 23:03] LABS: ABSOLUTE EOSINOPHILS # (AUTO) 0.1 10^3/uL (0.0-0.6); ABSOLUTE LYMPHOCYTES (AUTO) 0.6 10^3/uL (0.5-4.7); ABSOLUTE MONOCYTES (AUTO) 0.6 10^3/uL (0.1-1.4); ABSOLUTE NEUT (AUTO) 9.9 10^3/uL (1.7-8.2); BASOPHILS % (AUTO) 0.1 % (0-2); EOSINOPHILS % (AUTO) 0.5 % (0-6); HEMATOCRIT 33.3 % (37.9-51.0); HEMOGLOBIN 10.5 g/dL (13.5-17.0); LYMPHOCYTES % (AUTO) 5.4 % (13-45); MEAN CORPUSCULAR HGB CONC 31.5 g/dL (32.0-36.0); MEAN CORPUSCULAR VOLUME 76 fl (80-97); MONOCYTES % (AUTO) 5.5 % (3-13); PLATELET COUNT 113 10^3/uL (150-450); RED BLOOD COUNT 4.35 10^6/uL (4.35-5.55); RED CELL DISTRIBUTION WIDTH 20.1 % (11.5-14.0); SEGMENTED NEUTROPHILS % (AUTO) 88.5 % (42-78); TOTAL CELLS COUNTED % (AUTO) 100 %; WHITE BLOOD COUNT 11.2 10^3/uL (4.0-10.5)
[2019-08-24] MEDS ORDERED: GLUCAGON,HUMAN RECOMB 1 MG INJ SUBCUT PRN (23:23)
[2019-08-24] MEDS ORDERED: DEXTROSE 40% GEL 15 GM TUBE PO PRN ×2 (23:23)
[2019-08-24] MEDS ORDERED: DEXTROSE 50%-WATER 25 GM/50 ML DISP.SYRIN IV PRN ×2 (23:23)
--- NOTE | 2019-08-24 23:23 | PDOC PROGRESS REPORT ---
Subjective Progress Note for:: 08/24/19 Subjective:: Called to evaluate patient who was feeling relatively well up until this evening when he developed abdominal distention with nausea and lower abdominal pain. Patient had an NG tube placed with 750 cc bilious output. Since that time he has felt better but still has some lower abdominal pain. he does note that he has passed some gas last 30 minutes. He has a history of multiple abdominal procedures for what sounds like bowel obstruction. He says he has been operated 6 times for bowel obstruction in the past and they have not found bowel obstruction. He apparently had some complications due to surgeries in the past including what sounds like cardiac arrest. Reason For Visit: ACUTE BLOOD LOSS ANEMIA Physical Exam Vital Signs: Temp Pulse Resp BP Pulse Ox 98.2 F 91 20 140/77 H 93 08/24/19 22:16 08/24/19 22:16 08/24/19 22:16 08/24/19 22:16 08/24/19 22:16 Intake & Output 08/23/19 08/24/19 08/25/19 06:59 06:59 06:59 Intake Total 5470 670 3286 Output Total 500 926 Balance 1200 -686 1567 Weight 110.2 kg 107.6 kg 107.6 kg General appearance: PRESENT: no acute distress, cooperative Respiratory exam: PRESENT: clear to auscultation audra Cardiovascular exam: PRESENT: RRR GI/Abdominal exam: PRESENT: other - Soft but distended with mild lower abdominal tenderness without peritoneal signs. Full length midline scar. Very p rotuberant lax abdominal tone. No palpable hernia defects. Results Laboratory Results: 08/24/19 22:47 08/24/19 21:47 08/24/19 08/24/19 08/24/19 04:08 04:08 21:47 WBC 5.7 Cancelled RBC 3.49 L Cancelled Hgb 8.6 L Cancelled Hct 26.7 L Cancelled MCV 77 L Cancelled MCH 24.7 L Cancelled MCHC 32.3 Cancelled RDW 20.2 H Cancelled Plt Count 112 L Cancelled Seg Neutrophils % 68.8 Cancelled Sodium 142.3 Potassium 3.9 Chloride 107 Carbon Dioxide 27 Anion Gap 8 BUN 31 H Creatinine 1.91 H Est GFR ( Amer) 41 L Glucose 143 H Calcium 8.0 L Total Bilirubin 0.4 AST 23 Alkaline Phosphatase 102 Total Protein 5.4 L Albumin 2.8 L Lipase 08/24/19 08/24/19 21:47 22:47 WBC 11.2 H RBC 4.35 Hgb 10.5 L Hct 33.3 L MCV 76 L MCH 24.0 L MCHC 31.5 L RDW 20.1 H Plt Count 113 L Seg Neutrophils % 88.5 H Sodium 141.5 Potassium 4.4 Chloride 107 Carbon Dioxide 25 Anion Gap 10 BUN 32 H Creatinine 1.77 H Est GFR ( Amer) 45 L Glucose 163 H Calcium 9.0 Total Bilirubin 0.8 AST 44 Alkaline Phosphatase 116 Total Protein 7.1 Albumin 3.8 Lipase 175.0 08/20/19 08/21/19 08/21/19 20:54 01:19 07:09 Troponin I < 0.012 < 0.012 < 0.012 08/21/19 13:02 Troponin I < 0.012 Impressions: Chest X-Ray 08/20/19 20:41 IMPRESSION: Emphysema. Possible small left pleural effusion. copyright 2010 [employer]- All Rights Reserved Abdomen/Pelvis CT 08/24/19 00:00 IMPRESSION: 1. Recent colonoscopy and EGD. The colon is grossly unremarkable. There is significant dilatation of the stomach and proximal small bowel with air suspicious for small bowel obstruction. Distal small bowel loops are not dilated. Enteric tube is seen in the proximal stomach. May be advanced further for better drainage of the gastric contents. 2. There is significant thinning of the anterior abdominal wall and anterior bulge right greater than left of the stomach and small bowel loops. There is no true hernia. This bulge has increased since 2013. 3. Chronic renal atrophy with renal cysts. No acute renal abnormality. 4. Liver parenchyma appears obviously denser since 2014. This could represent resolution of previous fatty infiltration. However, this can also represent new hemachromatosis. 5. Diffuse atherosclerotic disease. 6. Bilateral pleural effusions greater on the left. Nonspecific groundglass opacities in the lung bases. Rule out CHF. There is mild left cardiomegaly. 7. Distended urinary bladder. Assessment & Plan - Diagnosis (1) Blood loss anemia Is this a current diagnosis for this admission?: Yes (2) Small bowel obstruction Is this a current diagnosis for this admission?: Yes Plan: CT scan suggestive of mechanical small bowel obstruction. Unable to give IV contrast due to his chronic renal insufficiency. No evidence of bowel compromise by CT scan uncontrasted. His tenderness and pain is concerning and I have discussed with the patient the risk and benefits of the options of observation with decompression with NG and perhaps repeat CT with oral contrast via NG to better define the process versus going to the operating room for an exploratory laparotomy. Surgery carries significant risk in this patient with hostile abdomen. Patient wants to try conservative measures first. He understands the risk of intestinal compromise during the observation period. We will repeat the CT scan with oral contrast via the NG tube. Radiologist was not able to define a transition point but he saw no evidence of bowel compromise. We will give fluid bolus. - Time Time Spent with patient: 15-24 minutes
[2019-08-25] MEDS: PANTOPRAZOLE SODIUM 40 MG VIAL IV SCH ×3 (00:19→23:20)
[2019-08-25] MEDS: MORPHINE SULFATE 10 MG/ML INJ IV PRN ×4 (00:25→07:28)
[2019-08-25] MEDS: IPRATROPIUM BROMIDE 0.02% NEB 0.5 MG/2.5 ML AMPUL NEB SCH ×3 (00:28→15:48)
[2019-08-25] MEDS ORDERED: NORMAL SALINE 1000 ML 1,000 ML IV ONE (01:30)
[2019-08-25] MEDS: ATORVASTATIN CALCIUM 40 MG TABLET PO SCH ×2 (01:30→21:53)
[2019-08-25] MEDS: NORMAL SALINE 1000 ML 1,000 ML IV PRN ×2 (02:20→12:54)
[2019-08-25] MEDS: ONDANSETRON HCL INJ/PF 4 MG/2 ML SDV IV PRN ×2 (02:21→07:28)
[2019-08-25] MEDS: ENOXAPARIN SODIUM INJ 120 MG/0.8 ML DISP.SYRIN SUBCUT SCH ×2 (06:04→17:21)
[2019-08-25 06:23] LABS: ABSOLUTE LYMPHOCYTES (AUTO) 0.5 10^3/uL (0.5-4.7); ABSOLUTE MONOCYTES (AUTO) 0.7 10^3/uL (0.1-1.4); BASOPHILS % (AUTO) 0.3 % (0-2); EOSINOPHILS % (AUTO) 0.3 % (0-6); HEMATOCRIT 33.5 % (37.9-51.0); HEMOGLOBIN 10.6 g/dL (13.5-17.0); LYMPHOCYTES % (AUTO) 5.1 % (13-45); MEAN CORPUSCULAR HEMOGLOBIN 24.5 pg (27.0-33.4); MEAN CORPUSCULAR HGB CONC 31.7 g/dL (32.0-36.0); MEAN CORPUSCULAR VOLUME 77 fl (80-97); MONOCYTES % (AUTO) 7.2 % (3-13); PLATELET COUNT 120 10^3/uL (150-450); RED BLOOD COUNT 4.35 10^6/uL (4.35-5.55); RED CELL DISTRIBUTION WIDTH 20.2 % (11.5-14.0); SEGMENTED NEUTROPHILS % (AUTO) 87.1 % (42-78); TOTAL CELLS COUNTED % (AUTO) 100 %; WHITE BLOOD COUNT 9.2 10^3/uL (4.0-10.5)
[2019-08-25 06:31] LABS: PROTHROMBIN TIME 15.3 SEC (11.4-15.4)
[2019-08-25 06:45] LABS: ANION GAP 9 (5-19); BLOOD UREA NITROGEN 28 mg/dL (7-20); CALCIUM 8.7 mg/dL (8.4-10.2); CARBON DIOXIDE 28 mmol/L (22-30); CHLORIDE 108 mmol/L (98-107); GLUCOSE 169 mg/dL (75-110); POTASSIUM 4.2 mmol/L (3.6-5.0)
[2019-08-25 07:04] LABS: ALBUMIN 3.7 g/dL (3.5-5.0); ALKALINE PHOSPHATASE 104 U/L (38-126); ASPARTATE AMINO TRANSFERASE 25 U/L (17-59); BILIRUBIN,DIRECT 0.2 mg/dL (0.0-0.4); BILIRUBIN,TOTAL 0.6 mg/dL (0.2-1.3); TOTAL PROTEIN 6.9 g/dL (6.3-8.2)
--- NOTE | 2019-08-25 07:34 | RADIOLOGY REPORT (SQ) ---
EXAM DESCRIPTION: XR CHEST 1 VIEW COMPLETED DATE/TME: 08/25/2019 05:08 CLINICAL HISTORY: 79 years Male, confirm NG placement COMPARISON: Same day. TECHNIQUE/LIMITATION: Targeted exam for enteric tube assessment. FINDINGS: Adequate appearing enteric tube with tip at the left upper abdominal course. Upper abdominal clips. Moderate opacity-effusion of the left lower hemithorax probably worsened consistent with prior radiographs from August 20, 2019. IMPRESSION: Enteric tube.
[2019-08-25] MEDS: DOCUSATE SODIUM 100 MG CAPSULE PO SCH ×2 (10:27→17:22)
[2019-08-25] MEDS: LEVOTHYROXINE SODIUM 0.05 MG TABLET PO SCH (10:27)
[2019-08-25] MEDS: ATENOLOL 50 MG TABLET PO SCH (10:27)
[2019-08-25] MEDS: LISINOPRIL 10 MG TABLET PO SCH (10:27)
--- NOTE | 2019-08-25 12:02 | RADIOLOGY REPORT (SQ) ---
EXAM DESCRIPTION: CT ABD/PELVIS ORAL ONLY COMPLETED DATE/TIME: 08/25/2019 9:58 am REASON FOR STUDY: abdominal pain COMPARISON: CT of the abdomen pelvis without contrast on 08/24/2019. TECHNIQUE: CT scan of the abdomen and pelvis performed without intravenous or oral contrast. Images reviewed with lung, soft tissue, and bone windows. Reconstructed coronal and sagittal MPR images revi ewed. All images stored on PACS. All CT scanners at this facility use dose modulation, iterative reconstruction, and/or weight based d osing when appropriate to reduce radiation dose to as low as reasonably achievable (ALARA). [facility]: Dose Right [facility]: CareDose [facility]: Dose Right [facility]: Teradose 4D [facility]: [employer] RADIATION DOSE: CT Rad equipment meets quality standard of care and radiation dose reduction techniq ues were employed. CTDIvol: 24.0 mGy. DLP: 1304 mGy-cm.mGy. LIMITATIONS: None. FINDINGS: LOWER CHEST: Unchanged atherosclerotic calcification of the coronary arteries and mitral a nnulus and bilateral pleural effusions with areas of consolidation in the adjacent lower lobes that a re favored to represent atelectasis. NON-CONTRASTED LIVER, SPLEEN, ADRENALS: Evaluation is limited due to the absence of intravenous contr ast. The spleen is normal in size. There is no abnormality of the adrenal glands. PANCREAS: No acute gross abnormality of the pancreas. GALLBLADDER: The gallbladder is surgically absent. RIGHT KIDNEY AND URETER: Evaluation is limited due to the absence of intravenous contrast. There are several hypodense, cortical based lesions that measure up to 6.2 x 5.5 cm ; these lesions are unchan ged in size and number from the prior CTs. There is no hydronephrosis, nephrolithiasis, hydroureter or ureterolithiasis. LEFT KIDNEY AND URETER: Evaluation is limited due to the absence of intravenous contrast. There are several hypodense, cortical based lesions that measure up to 3.7 x 3.3 cm ; these lesions are unchang ed in size and number from the prior CTs. There is no hydronephrosis, nephrolithiasis, hydroureter o r ureterolithiasis. 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 There is no retroperitoneal adenopathy, hemorrhage or mass. BOWEL AND PERITONEAL CAVITY: The tip of the enteric tube projects within the gastric lumen. The stom ach, duodenum, and proximal jejunal remain dilated ; in the right lower quadrant there is a suspected point of transition (image 52 of series 2) that is associated with apparent "twisting" of the mesent crystal. The bowel distal to the point of transition is decompressed. There is colonic diverticulosis w ithout diverticulitis. There is no pneumatosis, free intraperitoneal air/fluid, or portal venous gas . APPENDIX: Unable to identify the appendix but there is no pericecal inflammation to indicate an acute appendicitis. PELVIS, BLADDER, AND ABDOMINAL WALL:The urinary bladder is distended and normal in appearance. There is no pelvic adenopathy, mass or hemorrhage. There is diastasis of the rectus sheath. The irregular subcutaneous tissue with interspersed calcifi cations that is located to the right of the coccyx (image 85 of series 2) is unchanged. BONES: No acute findings. OTHER: No other finding. IMPRESSION: 1. Unchanged findings as above suggestive of a bowel obstruction with a point of transit ion in the anterior mid abdomen (image 52 of series 2 and 31 of series 601). 2. Other unchanged findings as detailed above. COMMENT: Quality ID # [id number]: Final reports with documentation of one or more dose reduction techniques (e.g., Automated exposure control, adjustment of the mA and/or kV according to patient size, use of iterative reconstruction technique) TECHNICAL DOCUMENTATION: JOB ID: [id number] [employer]- All Rights Reserved Reading location - IP/workstation name: [email or web address]
--- NOTE | 2019-08-25 15:38 | PDOC PROGRESS REPORT ---
Subjective Progress Note for:: 08/25/19 Subjective:: Started to develop some belly pain and distention last night, wound up requiring an abdominal CT which showed a possible obstruction. Had an NG tube placed. Had a repeat scan this morning with some contrast which confirms a site of obstruction. He said he has had 6 or 7 different surgeries on his abdomen and has had multiple obstructions in the past. He says he has been passing gas. Reason For Visit: ACUTE BLOOD LOSS ANEMIA Physical Exam Vital Signs: Temp Pulse Resp BP Pulse Ox 98.0 F 108 H 18 95/40 L 85 L 08/25/19 12:04 08/25/19 14:00 08/25/19 12:04 08/25/19 12:04 08/25/19 12:04 Intake & Output 08/24/19 08/25/19 08/26/19 06:59 06:59 06:59 Intake Total 240 2567 951 Output Total 926 1900 1700 Balance -686 667 -749 Weight 107.6 kg 109.3 kg General appearance: PRESENT: no acute distress, cooperative, disheveled, obese Respiratory exam: PRESENT: clear to auscultation audra, symmetrical, unlabored. ABSENT: accessory muscle use, chest wall tenderness, crackles, prolonged expiratory phas, rhonchi, tachypnea, wheezes Cardiovascular exam: PRESENT: RRR, +S1, +S2 Pulses: PRESENT: normal carotid pulses Vascular exam: PRESENT: normal capillary refill GI/Abdominal exam: PRESENT: Distended, unexpected normal bowel sounds, soft, reducible hernia. ABSENT: guarding, rebound, tenderness Extremities exam: ABSENT: clubbing, pedal edema Musculoskeletal exam: ABSENT: deformity Neurological exam: PRESENT: alert, awake, oriented to person, oriented to place, oriented to situation Psychiatric exam: PRESENT: appropriate affect, normal mood Skin exam: PRESENT: dry, warm Results Laboratory Results: 08/25/19 06:02 08/25/19 06:02 08/24/19 08/24/19 08/24/19 21:47 21:47 22:47 WBC Cancelled 11.2 H RBC Cancelled 4.35 Hgb Cancelled 10.5 L Hct Cancelled 33.3 L MCV Cancelled 76 L MCH Cancelled 24.0 L MCHC Cancelled 31.5 L RDW Cancelled 20.1 H Plt Count Cancelled 113 L Seg Neutrophils % Cancelled 88.5 H Sodium 141.5 Potassium 4.4 Chloride 107 Carbon Dioxide 25 Anion Gap 10 BUN 32 H Creatinine 1.77 H Est GFR ( Amer) 45 L Est GFR (Non-Af Amer) Glucose 163 H Calcium 9.0 Magnesium Total Bilirubin 0.8 AST 44 Alkaline Phosphatase 116 Total Protein 7.1 Albumin 3.8 Lipase 175.0 08/25/19 08/25/19 08/25/19 06:02 06:02 06:02 WBC 9.2 RBC 4.35 Hgb 10.6 L Hct 33.5 L MCV 77 L MCH 24.5 L MCHC 31.7 L RDW 20.2 H Plt Count 120 L Seg Neutrophils % 87.1 H Sodium 144.6 Cancelled Potassium 4.2 Cancelled Chloride 108 H Cancelled Carbon Dioxide 28 Cancelled Anion Gap 9 Cancelled BUN 28 H Cancelled Creatinine 1.67 H Cancelled Est GFR ( Amer) 48 L Cancelled Est GFR (Non-Af Amer) Cancelled Glucose 169 H Cancelled Calcium 8.7 Cancelled Magnesium 1.7 Total Bilirubin 0.6 AST 25 Alkaline Phosphatase 104 Total Protein 6.9 Albumin 3.7 Lipase 08/20/19 08/21/19 08/21/19 20:54 01:19 07:09 Troponin I < 0.012 < 0.012 < 0.012 08/21/19 13:02 Troponin I < 0.012 Impressions: Abdomen/Pelvis CT 08/24/19 23:10 IMPRESSION: 1. Unchanged findings as above suggestive of a bowel obstruction with a point of transition in the anterior mid abdomen (image 52 of series 2 and 31 of series 601). 2. Other unchanged findings as detailed above. Chest X-Ray 08/25/19 05:08 IMPRESSION: Enteric tube. Assessment and Plan - Diagnosis (1) Acute GI bleeding Is this a current diagnosis for this admission?: Yes Plan: Most likely due to some chronic low-level blood loss due to anticoagulation, possibly as result of some of the polyps that were removed. No active bleeding was seen. Hemoglobin has remained stable. (2) Blood loss anemia Is this a current diagnosis for this admission?: Yes Plan: Resolved (3) Chronic anticoagulation Is this a current diagnosis for this admission?: Yes Plan: We have resumed his Coumadin, monitoring the trend in his INR. We will have to consider putting this on hold if his obstruction does not improve. (4) Acute kidney injury superimposed on chronic kidney disease Is this a current diagnosis for this admission?: Yes Plan: Resolved (5) Small bowel obstruction Is this a current diagnosis for this admission?: Yes Plan: Has an NG tube in for decompression. This is happened to him several times before. We will try to manage this conservatively. Surgery is following. The repeat CT with oral contrast seemed pretty certain that he has a transition point in the right abdomen, but he paradoxically had bowel sounds this morning and was passing gas. - Time Time Spent with patient: 25-34 minutes
--- NOTE | 2019-08-25 17:38 | PDOC PROGRESS REPORT ---
Subjective Progress Note for:: 08/25/19 Subjective:: This is a 79-year-old male with a small bowel obstruction. Patient is a long and complicated abdominal history. The patient has undergone CT scanning, showing evidence of a small bowel obstruction. He is a large ventral, loss of domain hernia. I am sure this is contributing to his symptomatology. Currently the patient denies chest pain, shortness of breath, fevers, chills, nausea, vomiting, blurry vision, dizziness. He does report abdominal distention and i ntermittent abdominal pain. He does report having multiple episodes of flatus today. Reason For Visit: ACUTE BLOOD LOSS ANEMIA Physical Exam Vital Signs: Temp Pulse Resp BP Pulse Ox 97.9 F 104 H 16 119/50 L 91 L 08/25/19 16:02 08/25/19 16:02 08/25/19 16:02 08/25/19 16:02 08/25/19 16:02 Intake & Output 08/24/19 08/25/19 08/26/19 06:59 06:59 06:59 Intake Total 240 2567 951 Output Total 926 1900 1700 Balance -686 667 -749 Weight 107.6 kg 109.3 kg General appearance: PRESENT: no acute distress, cooperative Head exam: PRESENT: atraumatic, normocephalic Eye exam: PRESENT: EOMI, PERRLA. ABSENT: scleral icterus Mouth exam: PRESENT: moist, neck supple Neck exam: ABSENT: tenderness, thyromegaly, tracheal deviation, tracheostomy Respiratory exam: PRESENT: clear to auscultation audra, unlabored. ABSENT: chest wall tenderness, tachypnea, wheezes Pulses: PRESENT: normal radial pulses Vascular exam: PRESENT: normal capillary refill. ABSENT: pallor GI/Abdominal exam: PRESENT: distended, soft, tenderness - mild. ABSENT: rigid Rectal exam: PRESENT: deferred Extremities exam: ABSENT: clubbing Musculoskeletal exam: ABSENT: deformity Neurological exam: PRESENT: alert, awake, oriented to person, oriented to place, oriented to time, oriented to situation, CN II-XII grossly intact. ABSENT: motor sensory deficit Psychiatric exam: ABSENT: agitated, anxious, depressed Focused psych exam: ABSENT: delusional Skin exam: ABSENT: cyanosis, erythema, jaundice Results Laboratory Results: 08/25/19 06:02 08/25/19 06:02 08/24/19 08/24/19 08/24/19 21:47 21:47 22:47 WBC Cancelled 11.2 H RBC Cancelled 4.35 Hgb Cancelled 10.5 L Hct Cancelled 33.3 L MCV Cancelled 76 L MCH Cancelled 24.0 L MCHC Cancelled 31.5 L RDW Cancelled 20.1 H Plt Count Cancelled 113 L Seg Neutrophils % Cancelled 88.5 H Sodium 141.5 Potassium 4.4 Chloride 107 Carbon Dioxide 25 Anion Gap 10 BUN 32 H Creatinine 1.77 H Est GFR ( Amer) 45 L Est GFR (Non-Af Amer) Glucose 163 H Calcium 9.0 Magnesium Total Bilirubin 0.8 AST 44 Alkaline Phosphatase 116 Total Protein 7.1 Albumin 3.8 Lipase 175.0 08/25/19 08/25/19 08/25/19 06:02 06:02 06:02 WBC 9.2 RBC 4.35 Hgb 10.6 L Hct 33.5 L MCV 77 L MCH 24.5 L MCHC 31.7 L RDW 20.2 H Plt Count 120 L Seg Neutrophils % 87.1 H Sodium 144.6 Cancelled Potassium 4.2 Cancelled Chloride 108 H Cancelled Carbon Dioxide 28 Cancelled Anion Gap 9 Cancelled BUN 28 H Cancelled Creatinine 1.67 H Cancelled Est GFR ( Amer) 48 L Cancelled Est GFR (Non-Af Amer) Cancelled Glucose 169 H Cancelled Calcium 8.7 Cancelled Magnesium 1.7 Total Bilirubin 0.6 AST 25 Alkaline Phosphatase 104 Total Protein 6.9 Albumin 3.7 Lipase 08/20/19 08/21/19 08/21/19 20:54 01:19 07:09 Troponin I < 0.012 < 0.012 < 0.012 08/21/19 13:02 Troponin I < 0.012 Impressions: Abdomen/Pelvis CT 08/24/19 23:10 IMPRESSION: 1. Unchanged findings as above suggestive of a bowel obstruction with a point of transition in the anterior mid abdomen (image 52 of series 2 and 31 of series 601). 2. Other unchanged findings as detailed above. Chest X-Ray 08/25/19 05:08 IMPRESSION: Enteric tube. Assessment & Plan - Diagnosis (1) Blood loss anemia Is this a current diagnosis for this admission?: Yes (2) Chest pain Qualifiers: Chest pain type: chest pain due to myocardial ischemia Ischemic chest pain type: stable angina pectoris Qualified Code(s): I20.8 - Other forms of angina pectoris Is this a current diagnosis for this admission?: Yes - Time Time Spent with patient: Less than 15 minutes - Plan Summary Plan Summary: This is a 79-year-old male with a long and complicated abdominal history. The patient has evidence of a small bowel obstruction on CT scan. I would continue NG decompression. Plan for conservative therapy (48 to 72 hours of NG deco mpression). If conservative therapy fails and surgical intervention is necessary, we will discuss the risks and benefits of surgery at that time.
[2019-08-26] MEDS: MORPHINE SULFATE 10 MG/ML INJ IV PRN (00:01)
[2019-08-26] MEDS: NORMAL SALINE 1000 ML 1,000 ML IV PRN (00:03)
[2019-08-26] MEDS: IPRATROPIUM BROMIDE 0.02% NEB 0.5 MG/2.5 ML AMPUL NEB SCH ×3 (00:14→16:19)
[2019-08-26 04:57] LABS: INTERNATIONAL RATION (INR) 1.28; PROTHROMBIN TIME 16.1 SEC (11.4-15.4)
[2019-08-26 08:37] LABS: ANION GAP 7 (5-19); BLOOD UREA NITROGEN 32 mg/dL (7-20); CALCIUM 8.3 mg/dL (8.4-10.2); CARBON DIOXIDE 28 mmol/L (22-30); CHLORIDE 110 mmol/L (98-107); GLUCOSE 112 mg/dL (75-110); POTASSIUM 4.1 mmol/L (3.6-5.0)
--- NOTE | 2019-08-26 09:06 | PDOC PROGRESS REPORT ---
Subjective Subjective:: Feels better today. Is passing flatus. Reason For Visit: ACUTE BLOOD LOSS ANEMIA Physical Exam Vital Signs: Temp Pulse Resp BP Pulse Ox 97.8 F 92 16 119/41 L 93 08/25/19 20:28 08/26/19 07:00 08/26/19 00:16 08/25/19 20:28 08/26/19 00:16 Intake & Output 08/25/19 08/26/19 08/27/19 06:59 06:59 06:59 Intake Total 2567 1951 Output Total 1900 3750 Balance 667 -1799 Weight 109.3 kg 108.2 kg General appearance: PRESENT: no acute distress, cooperative Respiratory exam: PRESENT: clear to auscultation audra Cardiovascular exam: PRESENT: RRR GI/Abdominal exam: PRESENT: other - Soft, protuberant, nontender to palpation. NG output however is still dark and bile stained. Results Laboratory Results: 08/25/19 06:02 08/26/19 07:45 08/26/19 07:45 Sodium 145.0 Potassium 4.1 Chloride 110 H Carbon Dioxide 28 Anion Gap 7 BUN 32 H Creatinine 1.62 H Est GFR ( Amer) 50 L Glucose 112 H Calcium 8.3 L 08/20/19 08/21/19 08/21/19 20:54 01:19 07:09 Troponin I < 0.012 < 0.012 < 0.012 08/21/19 13:02 Troponin I < 0.012 Impressions: Abdomen/Pelvis CT 08/24/19 23:10 IMPRESSION: 1. Unchanged findings as above suggestive of a bowel obstruction with a point of transition in the anterior mid abdomen (image 52 of series 2 and 31 of series 601). 2. Other unchanged findings as detailed above. Assessment & Plan - Diagnosis (1) Blood loss anemia Is this a current diagnosis for this admission?: Yes (2) Small bowel obstruction Is this a current diagnosis for this admission?: Yes Plan: Looks much improved. Passing flatus. Contrast is seen in the colon. In reviewing his CT scan in comparison to one from the remote past, patient has always had dilated loops of bowel likely due to his prior exploratory laparotomies and likely small bowel anastomoses. With his high NG output I w ould like to continue to suction for now. But it appears that his bowel obstruction is at worst low-grade partial. - Time Time Spent with patient: 15-24 minutes
--- NOTE | 2019-08-26 10:02 | RADIOLOGY REPORT (SQ) ---
EXAM DESCRIPTION: ABDOMEN 2 VIEWS COMPLETED DATE/TIME: 08/26/2019 8:41 am REASON FOR STUDY: f/u sbo COMPARISON: CT abdomen pelvis 08/25/2019, 08/24/2019, 07/12/2014, 12/03/2012 NUMBER OF VIEWS: Two views. TECHNIQUE: Supine and upright radiographic images of the abdomen acquired. LIMITATIONS: None. FINDINGS: FREE AIR: None. No abnormal gas collections. LUNG BASES: Clear. BOWEL GAS PATTERN: There is oral contrast in the splenic flexure of colon from prior CT exam 9. A nasogastric tube is coiled in the stomach fundus, small amount of air in the stomach. There is a persistent air-filled loop of bowel in the left abdomen with adjacent bowel anastomotic st aples. This loop has been dilated on sequential CT exams dating back to 2012. Few other mildly dilated small bowel loops are seen in the right lower quadrant, nonspecific. Again, gas and oral contrast/stool is seen in the colon suggesting against high-grade small bowel obstructi on. These findings were reviewed with Dr. Levy from surgery CALCIFICATIONS: No suspicious calcifications. SOFT TISSUES: No gross mass or suggestion of organomegaly. HARDWARE: Nasogastric tube tip and side port in the stomach. Clips right upper quadrant post cholecy stectomy. BONES: No acute fracture. No worrisome bone lesions. OTHER: No other significant finding. IMPRESSION: Nasogastric tube tip and side port in the stomach. Stomach decompressed. Oral contrast given for CT exam 08/25/2019 is de seen in the splenic flexure colon suggesting against high-grade small bowel obstruction Few air-filled mildly dilated small bowel loops in the right lower quadrant. TECHNICAL DOCUMENTATION: JOB ID: [id number] [employer]- All Rights Reserved Reading location - IP/workstation name: [email or web address]
[2019-08-26] MEDS: LEVOTHYROXINE SODIUM 0.05 MG TABLET PO SCH (10:10)
[2019-08-26] MEDS: DOCUSATE SODIUM 100 MG CAPSULE PO SCH ×2 (10:10→17:03)
[2019-08-26] MEDS: LISINOPRIL 10 MG TABLET PO SCH (10:10)
[2019-08-26] MEDS: ATENOLOL 50 MG TABLET PO SCH (10:11)
[2019-08-26] MEDS: PANTOPRAZOLE SODIUM 40 MG VIAL IV SCH ×2 (11:00→21:16)
--- NOTE | 2019-08-26 12:08 | RADIOLOGY REPORT (SQ) ---
EXAM DESCRIPTION: CHEST SINGLE VIEW COMPLETED DATE/TIME: 08/26/2019 8:41 am REASON FOR STUDY: confirm NG tube placement. NG tube repositioned. COMPARISON: CT chest 05/08/2019 Two-view chest 05/08/2019, 08/20/2019 Chest films 07/12/2014, 12/03/2012 EXAM PARAMETERS: NUMBER OF VIEWS: One view. TECHNIQUE: Single frontal radiographic view of the chest acquired. RADIATION DOSE: NA LIMITATIONS: Portable technique FINDINGS: LUNGS AND PLEURA: Chronic blunting left lateral costophrenic sulcus, unchanged from 2012. No acute infiltrates, no pleural effusion. No pneumothorax. Upper lobes are hyperlucent from obstructive disease. MEDIASTINUM AND HILAR STRUCTURES: No masses. Contour normal. HEART AND VASCULAR STRUCTURES: No cardiomegaly BONES: No acute findings. HARDWARE: Nasogastric tube tip and side port below the hemidiaphragms. OTHER: No other significant finding. IMPRESSION: Chronic blunting left lateral costophrenic sulcus. Nasogastric tube tip and side port below the hemidiaphragms. TECHNICAL DOCUMENTATION: JOB ID: [id number] [employer]- All Rights Reserved Reading location - IP/workstation name: [email or web address]
--- NOTE | 2019-08-26 15:29 | PDOC PROGRESS REPORT ---
Subjective Progress Note for:: 08/26/19 Subjective:: No adverse events overnight. Little tachycardic this morning but asymptomatic. No bleeding. Said his stomach feels little better. Reason For Visit: ACUTE BLOOD LOSS ANEMIA Physical Exam Vital Signs: Temp Pulse Resp BP Pulse Ox 98.0 F 119 H 16 145/60 H 95 08/26/19 11:47 08/26/19 14:00 08/26/19 11:47 08/26/19 11:47 08/26/19 11:47 Intake & Output 08/25/19 08/26/19 08/27/19 06:59 06:59 06:59 Intake Total 2567 1951 Output Total 1900 0650 1300 Balance 557 -8665 -1300 Weight 109.3 kg 108.2 kg General appearance: PRESENT: no acute distress, cooperative, disheveled, obese Respiratory exam: PRESENT: clear to auscultation audra, symmetrical, unlabored. ABSENT: accessory muscle use, chest wall tenderness, crackles, prolonged expiratory phas, rhonchi, tachypnea, wheezes Cardiovascular exam: PRESENT: Tachycardia, +S1, +S2 Pulses: PRESENT: normal carotid pulses Vascular exam: PRESENT: normal capillary refill GI/Abdominal exam: PRESENT: Distended, hypoactive bowel sounds, soft, reducible hernia. ABSENT: guarding, rebound, tenderness Extremities exam: ABSENT: clubbing, pedal edema Musculoskeletal exam: ABSENT: deformity Neurological exam: PRESENT: alert, awake, oriented to person, oriented to place, oriented to situation Psychiatric exam: PRESENT: appropriate affect, normal mood Skin exam: PRESENT: dry, warm Results Laboratory Results: 08/25/19 06:02 08/26/19 07:45 08/26/19 07:45 Sodium 145.0 Potassium 4.1 Chloride 110 H Carbon Dioxide 28 Anion Gap 7 BUN 32 H Creatinine 1.62 H Est GFR ( Amer) 50 L Glucose 112 H Calcium 8.3 L 08/20/19 08/21/19 08/21/19 20:54 01:19 07:09 Troponin I < 0.012 < 0.012 < 0.012 08/21/19 13:02 Troponin I < 0.012 Impressions: Abdomen/Pelvis CT 08/24/19 23:10 IMPRESSION: 1. Unchanged findings as above suggestive of a bowel obstruction with a point of transition in the anterior mid abdomen (image 52 of series 2 and 31 of series 601). 2. Other unchanged findings as detailed above. Abdomen X-Ray 08/26/19 00:00 IMPRESSION: Nasogastric tube tip and side port in the stomach. Stomach decompressed. Oral contrast given for CT exam 08/25/2019 is de seen in the splenic flexure colon suggesting against high-grade small bowel obstruction Few air-filled mildly dilated small bowel loops in the right lower quadrant. Chest X-Ray 08/26/19 00:00 IMPRESSION: Chronic blunting left lateral costophrenic sulcus. Nasogastric tube tip and side port below the hemidiaphragms. Assessment and Plan - Diagnosis (1) Acute GI bleeding Is this a current diagnosis for this admission?: Yes Plan: Most likely due to some chronic low-level blood loss due to anticoagulation, possibly as result of some of the polyps which have now been removed. No active bleeding was seen. Hemoglobin has remained stable. (2) Blood loss anemia Is this a current diagnosis for this admission?: Yes Plan: Resolved (3) Chronic anticoagulation Is this a current diagnosis for this admission?: Yes Plan: His oral medications are on hold. When he is able to take p.o. again, I will consider switching him to Eliquis or Xarelto. I know of no reason why he could not be on 1 of those, but will look into the chart first before making a definite switch. (4) Acute kidney injury superimposed on chronic kidney disease Is this a current diagnosis for this admission?: Yes Plan: Resolved (5) Small bowel obstruction Is this a current diagnosis for this admission?: Yes Plan: Has an NG tube in for decompression. This is happened to him several times before. We will try to manage this conservatively. Surgery is following. Abdominal films from this morning showed some passage of the contrast to the distal colon. - Time Time Spent with patient: 15-24 minutes
[2019-08-26] MEDS: ATORVASTATIN CALCIUM 40 MG TABLET PO SCH (21:23)
[2019-08-27] MEDS: MORPHINE SULFATE 10 MG/ML INJ IV PRN (02:01)
[2019-08-27] MEDS: NORMAL SALINE 1000 ML 1,000 ML IV PRN (03:27)
[2019-08-27] MEDS: IPRATROPIUM BROMIDE 0.02% NEB 0.5 MG/2.5 ML AMPUL NEB SCH ×4 (08:40→23:50)
--- NOTE | 2019-08-27 08:48 | RADIOLOGY REPORT (SQ) ---
EXAM DESCRIPTION: ABDOMEN 2 VIEWS COMPLETED DATE/TIME: 08/27/2019 8:22 am REASON FOR STUDY: f/u sbo COMPARISON: 08/26/2019 NUMBER OF VIEWS: Two views. TECHNIQUE: Supine and erect/decubitus radiographic images of the abdomen acquired. LIMITATIONS: None. FINDINGS: FREE AIR: None. No abnormal gas collections. LUNG BASES: Mild bilateral pleural effusions with basilar consolidation, left greater than right and similar to prior. BOWEL GAS PATTERN: Decreased but persistent gas dilated loops of small bowel throughout the abdomen. Unchanged gas dilated loop of bowel within the left lower quadrant corresponding to prior anastomoti c site and similar to multiple priors. Oral contrast noted within the splenic flexure. CALCIFICATIONS: Vascular calcifications. No radiopaque calculi overlie kidneys. SOFT TISSUES: No gross mass or suggestion of organomegaly. HARDWARE: Nasoenteric tube tip overlies gastric body. Prior cholecystectomy. Additional surgical cl ips overlies midline abdomen. BONES: Thoracolumbar spondylosis. No acute findings. OTHER: No other significant finding. IMPRESSION: Decreased gas dilated small bowel loops throughout the abdomen. Unchanged gas dilated l oop of bowel within the left lower quadrant likely corresponding to prior anastomotic site and simila r to prior. Oral contrast again noted within the transverse colon. Mild bilateral pleural effusions and bibasilar consolidation, left greater than right. TECHNICAL DOCUMENTATION: JOB ID: [id number] [employer]- All Rights Reserved Reading location - IP/workstation name: [email or web address]
[2019-08-27] MEDS: DOCUSATE SODIUM 100 MG CAPSULE PO SCH ×2 (08:59→17:31)
[2019-08-27] MEDS: LISINOPRIL 10 MG TABLET PO SCH (08:59)
[2019-08-27] MEDS: LEVOTHYROXINE SODIUM 0.05 MG TABLET PO SCH (09:00)
[2019-08-27] MEDS: ATENOLOL 50 MG TABLET PO SCH (09:00)
[2019-08-27] MEDS: PANTOPRAZOLE SODIUM 40 MG VIAL IV SCH ×2 (09:01→21:11)
--- NOTE | 2019-08-27 10:28 | PDOC PROGRESS REPORT ---
Subjective Progress Note for:: 08/27/19 Subjective:: Feels okay had bowel movement this morning Reason For Visit: ACUTE BLOOD LOSS ANEMIA Physical Exam Vital Signs: Temp Pulse Resp BP Pulse Ox 98.5 F 98 14 135/63 H 90 L 08/26/19 19:36 08/27/19 08:41 08/27/19 08:41 08/26/19 19:36 08/27/19 08:41 Intake & Output 08/26/19 08/27/19 08/28/19 06:59 06:59 06:59 Intake Total 1951 1000 Output Total 3750 2650 Balance -1799 -1650 Weight 108.2 kg 104.1 kg General appearance: PRESENT: no acute distress Head exam: PRESENT: normocephalic Eye exam: PRESENT: EOMI Mouth exam: PRESENT: moist Neck exam: PRESENT: full ROM Respiratory exam: PRESENT: clear to auscultation audra Cardiovascular exam: PRESENT: RRR Pulses: PRESENT: normal radial pulses, normal femoral pulses GI/Abdominal exam: PRESENT: soft Rectal exam: PRESENT: deferred Extremities exam: PRESENT: full ROM Musculoskeletal exam: PRESENT: full ROM Neurological exam: PRESENT: alert, oriented to person, oriented to place Psychiatric exam: PRESENT: appropriate affect Skin exam: PRESENT: dry Results Laboratory Results: 08/25/19 06:02 08/26/19 07:45 08/20/19 08/21/19 08/21/19 20:54 01:19 07:09 Troponin I < 0.012 < 0.012 < 0.012 08/21/19 13:02 Troponin I < 0.012 Impressions: Abdomen/Pelvis CT 08/24/19 23:10 IMPRESSION: 1. Unchanged findings as above suggestive of a bowel obstruction with a point of transition in the anterior mid abdomen (image 52 of series 2 and 31 of series 601). 2. Other unchanged findings as detailed above. Chest X-Ray 08/26/19 00:00 IMPRESSION: Chronic blunting left lateral costophrenic sulcus. Nasogastric tube tip and side port below the hemidiaphragms. Abdomen X-Ray 08/27/19 07:00 IMPRESSION: Decreased gas dilated small bowel loops throughout the abdomen. Unchanged gas dilated loop of bowel within the left lower quadrant likely corresponding to prior anastomotic site and similar to prior. Oral contrast again noted within the transverse colon. Mild bilateral pleural effusions and bibasilar consolidation, left greater than right. Assessment & Plan - Time Time Spent with patient: 25-34 minutes - Plan Summary Plan Summary: Repeat KUB this morning shows contrast within the transverse colon the dilated small bowel loop in the left lower quadrant has been unchanged for at least a year probably secondary to a previous anastomotic site patient's abdomen at this morning is soft and nontender we will remove his NG tube today and start him on clear liquids
--- NOTE | 2019-08-27 15:08 | PDOC PROGRESS REPORT ---
Subjective Progress Note for:: 08/27/19 Subjective:: No adverse events overnight. No new complaints. He said his belly feels better. He has been passing gas. He said he feels like his stomach is decompressed. Some water got injected down his NG tube last night he said that made him feel better than anything else. Reason For Visit: ACUTE BLOOD LOSS ANEMIA Physical Exam Vital Signs: Temp Pulse Resp BP Pulse Ox 98.5 F 105 H 14 135/63 H 90 L 08/26/19 19:36 08/27/19 14:00 08/27/19 08:41 08/26/19 19:36 08/27/19 08:41 Intake & Output 08/26/19 08/27/19 08/28/19 06:59 06:59 06:59 Intake Total 1951 1000 Output Total 3750 2650 Balance -1799 -1650 Weight 108.2 kg 104.1 kg General appearance: PRESENT: no acute distress, cooperative, disheveled, obese Respiratory exam: PRESENT: clear to auscultation audra, symmetrical, unlabored. A BSENT: accessory muscle use, chest wall tenderness, crackles, prolonged expiratory phas, rhonchi, tachypnea, wheezes Cardiovascular exam: PRESENT: Tachycardia, +S1, +S2 Pulses: PRESENT: normal carotid pulses Vascular exam: PRESENT: normal capillary refill GI/Abdominal exam: PRESENT: Distended, hypoactive bowel sounds, soft, reducible hernia. ABSENT: guarding, rebound, tenderness Extremities exam: ABSENT: clubbing, pedal edema Musculoskeletal exam: ABSENT: deformity Neurological exam: PRESENT: alert, awake, oriented to person, oriented to place, oriented to situation Psychiatric exam: PRESENT: appropriate affect, normal mood Skin exam: PRESENT: dry, warm Results Laboratory Results: 08/25/19 06:02 08/26/19 07:45 08/20/19 08/21/19 08/21/19 20:54 01:19 07:09 Troponin I < 0.012 < 0.012 < 0.012 08/21/19 13:02 Troponin I < 0.012 Impressions: Abdomen/Pelvis CT 08/24/19 23:10 IMPRESSION: 1. Unchanged findings as above suggestive of a bowel obstruction with a point of transition in the anterior mid abdomen (image 52 of series 2 and 31 of series 601). 2. Other unchanged findings as detailed above. Chest X-Ray 08/26/19 00:00 IMPRESSION: Chronic blunting left lateral costophrenic sulcus. Nasogastric tube tip and side port below the hemidiaphragms. Abdomen X-Ray 08/27/19 07:00 IMPRESSION: Decreased gas dilated small bowel loops throughout the abdomen. Unchanged gas dilated loop of bowel within the left lower quadrant likely corresponding to prior anastomotic site and similar to prior. Oral contrast again noted within the transverse colon. Mild bilateral pleural effusions and bibasilar consolidation, left greater than right. Assessment and Plan - Diagnosis (1) Acute GI bleeding Is this a current diagnosis for this admission?: Yes Plan: Most likely due to some chronic low-level blood loss due to anticoagulation, possibly as result of some of the polyps which have now been removed. No active bleeding was seen. Hemoglobin has remained stable. (2) Blood loss anemia Is this a current diagnosis for this admission?: Yes Plan: Resolved (3) Chronic anticoagulation Is this a current diagnosis for this admission?: Yes Plan: He started on clear liquids, if he tolerates that we will resume anticoagulation. I think that he could probably be on Eliquis or Xarelto instead of warfarin. (4) Acute kidney injury superimposed on chronic kidney disease Is this a current diagnosis for this admission?: Yes Plan: Resolved (5) Small bowel obstruction Is this a current diagnosis for this admission?: Yes Plan: NG tube is been removed and he has been started on clear liquids. Surgery is following. - Time Time Spent with patient: 15-24 minutes
[2019-08-27] MEDS: METHOCARBAMOL 750 MG TABLET PO PRN (21:11)
[2019-08-27] MEDS: ATORVASTATIN CALCIUM 40 MG TABLET PO SCH (21:11)
--- NOTE | 2019-08-28 08:59 | PDOC PROGRESS REPORT ---
Subjective Progress Note for:: 08/28/19 Subjective:: feels well passing stool flatus no complaints of abd pain Reason For Visit: ACUTE BLOOD LOSS ANEMIA Physical Exam Vital Signs: Temp Pulse Resp BP Pulse Ox 97.6 F 93 22 H 109/42 L 92 08/28/19 03:22 08/28/19 07:00 08/28/19 03:22 08/28/19 03:22 08/28/19 03:22 Intake & Output 08/27/19 08/28/19 08/29/19 06:59 06:59 06:59 Intake Total 1000 1900 Output Total 2650 Balance -1650 1900 Weight 104.1 kg 104.2 kg General appearance: PRESENT: no acute distress Head exam: PRESENT: normocephalic Eye exam: PRESENT: EOMI Ear exam: PRESENT: normal external ear exam Mouth exam: PRESENT: moist Neck exam: PRESENT: full ROM Respiratory exam: PRESENT: clear to auscultation audra Cardiovascular exam: PRESENT: RRR Pulses: PRESENT: normal femoral pulses, normal dorsalis pedis pul Vascular exam: PRESENT: normal capillary refill GI/Abdominal exam: PRESENT: soft Rectal exam: PRESENT: deferred Extremities exam: PRESENT: full ROM Neurological exam: PRESENT: alert, awake, oriented to person, oriented to place Psychiatric exam: PRESENT: appropriate affect Skin exam: PRESENT: dry Results Laboratory Results: 08/25/19 06:02 08/26/19 07:45 08/20/19 08/21/19 08/21/19 20:54 01:19 07:09 Troponin I < 0.012 < 0.012 < 0.012 08/21/19 13:02 Troponin I < 0.012 Impressions: Abdomen/Pelvis CT 08/24/19 23:10 IMPRESSION: 1. Unchanged findings as above suggestive of a bowel obstruction with a point of transition in the anterior mid abdomen (image 52 of series 2 and 31 of series 601). 2. Other unchanged findings as detailed above. Chest X-Ray 08/26/19 00:00 IMPRESSION: Chronic blunting left lateral costophrenic sulcus. Nasogastric tube tip and side port below the hemidiaphragms. Abdomen X-Ray 08/27/19 07:00 IMPRESSION: Decreased gas dilated small bowel loops throughout the abdomen. Unchanged gas dilated loop of bowel within the left lower quadrant likely corresponding to prior anastomotic site and similar to prior. Oral contrast again noted within the transverse colon. Mild bilateral pleural effusions and bibasilar consolidation, left greater than right. Assessment & Plan - Time Time Spent with patient: 25-34 minutes - Plan Summary Plan Summary: pt doing better now with passage of stool and flatus no c/o abd pain last ct showed contrast into colon will advance diet to full liquids as pt does not want regular diet at this time due to sore throat please consult surgery as necessary.
[2019-08-28] MEDS: IPRATROPIUM BROMIDE 0.02% NEB 0.5 MG/2.5 ML AMPUL NEB SCH ×3 (09:11→23:46)
[2019-08-28] MEDS: LEVOTHYROXINE SODIUM 0.05 MG TABLET PO SCH (09:46)
[2019-08-28] MEDS: LISINOPRIL 10 MG TABLET PO SCH (09:46)
[2019-08-28] MEDS: ATENOLOL 50 MG TABLET PO SCH (09:46)
[2019-08-28] MEDS: DOCUSATE SODIUM 100 MG CAPSULE PO SCH ×2 (09:46→17:08)
--- NOTE | 2019-08-28 13:49 | PDOC PROGRESS REPORT ---
Subjective Progress Note for:: 08/28/19 Subjective:: No adverse events overnight. He is done pretty well with the NG tube out. He said his belly feels pretty good. He said it feels about normal to them. He has had 2 bowel movements. He is been passing gas. No nausea or vomiting. Reason For Visit: ACUTE BLOOD LOSS ANEMIA Physical Exam Vital Signs: Temp Pulse Resp BP Pulse Ox 98.2 F 94 18 129/57 H 96 08/28/19 11:21 08/28/19 11:21 08/28/19 11:21 08/28/19 11:21 08/28/19 11:21 Intake & Output 08/27/19 08/28/19 08/29/19 06:59 06:59 06:59 Intake Total 1000 1900 Output Total 2650 Balance -1650 1900 Weight 104.1 kg 104.2 kg General appearance: PRESENT: no acute distress, cooperative, disheveled, obese Respiratory exam: PRESENT: clear to auscultation audra, symmetrical, unlabored. ABSENT: accessory muscle use, chest wall tenderness, crackles, prolonged expiratory phas, rhonchi, tachypnea, wheezes Cardiovascular exam: PRESENT: Tachycardia, +S1, +S2 Pulses: PRESENT: normal carotid pulses Vascular exam: PRESENT: normal capillary refill GI/Abdominal exam: PRESENT: nondistended, normal bowel sounds, soft, reducible hernia. ABSENT: guarding, rebound, tenderness Extremities exam: ABSENT: clubbing, pedal edema Musculoskeletal exam: ABSENT: deformity Neurological exam: PRESENT: alert, awake, oriented to person, oriented to place, oriented to situation Psychiatric exam: PRESENT: appropriate affect, normal mood Skin exam: PRESENT: dry, warm Results Laboratory Results: 08/25/19 06:02 08/26/19 07:45 08/20/19 08/21/19 08/21/19 20:54 01:19 07:09 Troponin I < 0.012 < 0.012 < 0.012 08/21/19 13:02 Troponin I < 0.012 Impressions: Abdomen/Pelvis CT 08/24/19 23:10 IMPRESSION: 1. Unchanged findings as above suggestive of a bowel obstruction with a point of transition in the anterior mid abdomen (image 52 of series 2 and 31 of series 601). 2. Other unchanged findings as detailed above. Chest X-Ray 08/26/19 00:00 IMPRESSION: Chronic blunting left lateral costophrenic sulcus. Nasogastric tube tip and side port below the hemidiaphragms. Abdomen X-Ray 08/27/19 07:00 IMPRESSION: Decreased gas dilated small bowel loops throughout the abdomen. U nchanged gas dilated loop of bowel within the left lower quadrant likely corresponding to prior anastomotic site and similar to prior. Oral contrast again noted within the transverse colon. Mild bilateral pleural effusions and bibasilar consolidation, left greater than right. Assessment and Plan - Diagnosis (1) Acute GI bleeding Is this a current diagnosis for this admission?: Yes Plan: Most likely due to some chronic low-level blood loss due to anticoagulation, possibly as result of some of the polyps which have now been removed. No active bleeding was seen. Hemoglobin has remained stable. (2) Blood loss anemia Is this a current diagnosis for this admission?: Yes Plan: Resolved (3) Chronic anticoagulation Is this a current diagnosis for this admission?: Yes Plan: He started on clear liquids, seems to be tolerating, will start Eliquis. (4) Acute kidney injury superimposed on chronic kidney disease Is this a current diagnosis for this admission?: Yes Plan: Resolved (5) Small bowel obstruction Is this a current diagnosis for this admission?: Yes Plan: Doing well, tolerating clear liquids and having bowel movements and passing gas. Taking oral medications. Did not want to advance his diet today because of a sore throat from the NG tube. - Time Time Spent with patient: 15-24 minutes
[2019-08-28] MEDS: APIXABAN 2.5 MG TABLET PO SCH (17:08)
[2019-08-28] MEDS: METHOCARBAMOL 750 MG TABLET PO PRN (20:03)
[2019-08-28] MEDS: ATORVASTATIN CALCIUM 40 MG TABLET PO SCH (22:17)
[2019-08-29] MEDS: METHOCARBAMOL 750 MG TABLET PO PRN (04:03)
[2019-08-29] MEDS: IPRATROPIUM BROMIDE 0.02% NEB 0.5 MG/2.5 ML AMPUL NEB SCH ×3 (08:19→23:51)
[2019-08-29] MEDS: LEVALBUTEROL HCL NEB 0.63 MG/3 ML AMPUL NEB PRN (08:20)
[2019-08-29] MEDS: APIXABAN 2.5 MG TABLET PO SCH ×2 (09:09→17:16)
[2019-08-29] MEDS: LEVOTHYROXINE SODIUM 0.05 MG TABLET PO SCH (09:09)
[2019-08-29] MEDS: LISINOPRIL 10 MG TABLET PO SCH (09:09)
[2019-08-29] MEDS: DOCUSATE SODIUM 100 MG CAPSULE PO SCH ×2 (09:09→17:16)
[2019-08-29] MEDS: ATENOLOL 50 MG TABLET PO SCH (09:09)
--- NOTE | 2019-08-29 15:22 | PDOC PROGRESS REPORT ---
Subjective Progress Note for:: 08/29/19 Subjective:: No adverse events overnight. He is been tolerating full liquids without any problems. He is asking to have his diet advanced. Vital signs been stable. Reason For Visit: ACUTE BLOOD LOSS ANEMIA Physical Exam Vital Signs: Temp Pulse Resp BP Pulse Ox 97.8 F 77 17 122/58 L 99 08/29/19 12:07 08/29/19 14:00 08/29/19 12:07 08/29/19 12:07 08/29/19 12:07 Intake & Output 08/28/19 08/29/19 08/30/19 06:59 06:59 06:59 Intake Total 1900 1440 Output Total 400 Balance 1900 1040 Weight 104.2 kg 105 kg General appearance: PRESENT: no acute distress, cooperative, disheveled, obese Respiratory exam: PRESENT: clear to auscultation audra, symmetrical, unlabored. ABSENT: accessory muscle use, chest wall tenderness, crackles, prolonged expiratory phas, rhonchi, tachypnea, wheezes Cardiovascular exam: PRESENT: Tachycardia, +S1, +S2 Pulses: PRESENT: normal carotid pulses Vascular exam: PRESENT: normal capillary refill GI/Abdominal exam: PRESENT: nondistended, normal bowel sounds, soft, reducible hernia. ABSENT: guarding, rebound, tenderness Extremities exam: ABSENT: clubbing, pedal edema Musculoskeletal exam: ABSENT: deformity Neurological exam: PRESENT: alert, awake, oriented to person, oriented to place, oriented to situation Psychiatric exam: PRESENT: appropriate affect, normal mood Skin exam: PRESENT: dry, warm Results Laboratory Results: 08/25/19 06:02 08/26/19 07:45 08/20/19 08/21/19 08/21/19 20:54 01: 07:09 Troponin I < 0.012 < 0.012 < 0.012 08/21/19 13:02 Troponin I < 0.012 Impressions: Abdomen/Pelvis CT 08/24/19 23:10 IMPRESSION: 1. Unchanged findings as above suggestive of a bowel obstruction with a point of transition in the anterior mid abdomen (image 52 of series 2 and 31 of series 601). 2. Other unchanged findings as detailed above. Chest X-Ray 08/26/19 00:00 IMPRESSION: Chronic blunting left lateral costophrenic sulcus. Nasogastric tube tip and side port below the hemidiaphragms. Abdomen X-Ray 08/27/19 07:00 IMPRESSION: Decreased gas dilated small bowel loops throughout the abdomen. Unchanged gas dilated loop of bowel within the left lower quadrant likely corresponding to prior anastomotic site and similar to prior. Oral contrast again noted within the transverse colon. Mild bilateral pleural effusions and bibasilar consolidation, left greater than right. Assessment and Plan - Diagnosis (1) Acute GI bleeding Is this a current diagnosis for this admission?: Yes Plan: Most likely due to some chronic low-level blood loss due to anticoagulation, po ssibly as result of some of the polyps which have now been removed. No active bleeding was seen. Hemoglobin has remained stable. (2) Blood loss anemia Is this a current diagnosis for this admission?: Yes Plan: Resolved (3) Chronic anticoagulation Is this a current diagnosis for this admission?: Yes Plan: He had been on warfarin but does not have a specific indication to stay on it preferentially, have started Eliquis. (4) Acute kidney injury superimposed on chronic kidney disease Is this a current diagnosis for this admission?: Yes Plan: Resolved (5) Small bowel obstruction Is this a current diagnosis for this admission?: Yes Plan: Seems to be resolved, slowly advancing his diet. Starting him on soft food today. If he tolerates that we may be able to discharge home tomorrow. - Time Time Spent with patient: 15-24 minutes
[2019-08-29] MEDS: ATORVASTATIN CALCIUM 40 MG TABLET PO SCH (21:19)
[2019-08-30] MEDS: METHOCARBAMOL 750 MG TABLET PO PRN (05:14)
[2019-08-30] MEDS: IPRATROPIUM BROMIDE 0.02% NEB 0.5 MG/2.5 ML AMPUL NEB SCH (08:34)
[2019-08-30] MEDS: ATENOLOL 50 MG TABLET PO SCH (09:34)
[2019-08-30] MEDS: APIXABAN 2.5 MG TABLET PO SCH (09:34)
[2019-08-30] MEDS: LISINOPRIL 10 MG TABLET PO SCH (09:34)
[2019-08-30] MEDS: LEVOTHYROXINE SODIUM 0.05 MG TABLET PO SCH (09:34)
[2019-08-30] MEDS: DOCUSATE SODIUM 100 MG CAPSULE PO SCH (09:35)
[2019-08-30 10:50] VITALS: BP 114/57
--- NOTE | 2019-08-30 15:33 | PDOC DISCHARGE SUMMARY ---
Impression - Admit/DC Date/PCP Admission Date/Primary Care Provider: 08/20/19 23:10 VASILIY NICHOLSON MD Discharge Date: 08/30/19 - Discharge Diagnosis (1) Acute GI bleeding Is this a current diagnosis for this admission?: Yes (2) Blood loss anemia Is this a current diagnosis for this admission?: Yes (3) Chronic anticoagulation Is this a current diagnosis for this admission?: Yes (4) Acute kidney injury superimposed on chronic kidney disease Is this a current diagnosis for this admission?: Yes (5) Small bowel obstruction Is this a current diagnosis for this admission?: Yes - Additional Information Resuscitation Status: Full Code Discharge Diet: Cardiac Discharge Activity: Slowly Increase Activity, Supervised Activity Referrals: VASILIY NICHOLSON MD [Primary Care Provider] - 09/14/19 9:30 am (1-2 weeks) Prescriptions: Apixaban [Eliquis 2.5 mg Tablet] 2.5 mg PO BID #60 tablet Home Medications: Albuterol Sulfate [Proair HFA Inhalation Aerosol 8.5 gm MDI] 400 puff IH Q6HP PRN 08/21/19 Atenolol [Tenormin] 50 mg PO DAILY 08/21/19 Atorvastatin Calcium [Lipitor 40 mg Tablet] 40 mg PO QHS 08/21/19 Levothyroxine Sodium [Synthroid 0.05 mg Tablet] 50 mcg PO DAILY 08/21/19 Lisinopril/Hydrochlorothiazide [Lisinopril-Hctz 10-12.5 mg Tab] 1 each PO DAILY 08/21/19 Methocarbamol [Robaxin 750 mg Tablet] 750 mg PO Q8HP PRN 08/21/19 Tramadol HCl [Tramadol HCl ER] 100 mg PO BID 08/21/19 Apixaban [Eliquis 2.5 mg Tablet] 2.5 mg PO BID #60 tablet 08/30/19 History of Present Illiness History of Present Illness: SERGO DE LA VEGA is a 79 year old male who presents the emergency room with a one-week history of chest pain. He admits chest pain occurring with exertion over the last week. For the last 3 days his exertional chest pain has become associated with dyspnea on exertion and bilateral claudication. He describes the chest pain as an episodic, moderately intense substernal pressure/tightness without radiation. His symptoms resolve with rest. He denies other associated or accompanying signs and symptoms. He denies prior similar episodes. He admits that recently his began taking [id number] ibuprofen for his arthritis pain even though he is aware that this is not a good practice while taking Coumadin. He has not identified any other aggravating or ameliorating factors for his chest pain. In the emergency room he was found to have a negative initial cardiac ischemic evaluation but was noted to have an elevation of his BUN and creatinine greater than his previous levels and a hemoglobin of 6.1 with a guaiac positive stool specimen. His INR is 2.3. He was subsequently admitted to the hospital for further evaluation and treatment with a routine consultation to Dr. Solorzano for endoscopic evaluation. Hospital Course Hospital Course: His Coumadin was discontinued and he received some packed red blood cells and his hemoglobin stabilized. He had a colonoscopy which showed that he had some polyps but no obvious source of bleeding. As we were in the process of advancing his diet and putting him back on his oral medications, he began to develop some abdominal distention. As it turns out, he has had 6 or 7 surgeries on his abdomen and he says he is gotten multiple bowel obstructions in the past. CT did confirm that he had evidence of obstruction and so we elected to treat it conservatively. He was managed with an NG tube and I have CT was repeated with oral contrast. Initially it showed that he had a obstruction on the right side, but but repeat abdominal films showed that he had transit of the contrast and of the left colon down into the rectum he was passing gas and feeling better. He also had a couple of bowel movements. NG tube was removed and his diet was advanced cautiously. He tolerated advancement of his diet very well. Because of his history, it was determined there was no reason that he needed to be on Coumadin instead of Eliquis and so the switch was made. He was feeling very well at time of discharge. I had him evaluated by physical therapy who recommended that he have home health PT. He said he already has a walker at home. His labs and examination were reassuring and he was discharged in good condition. Physical Exam Vital Signs: Temp Pulse Resp BP Pulse Ox 97.4 F 89 16 114/57 L 96 08/30/19 10:49 08/30/19 10:49 08/30/19 10:49 08/30/19 10:49 08/30/19 10:49 Intake & Output 08/29/19 08/30/19 08/31/19 06:59 06:59 06:59 Intake Total 1440 1420 Output Total 400 Balance 1040 1420 Weight 105 kg 105.8 kg 105.8 kg General appearance: PRESENT: no acute distress, cooperative, disheveled, obese Respiratory exam: PRESENT: clear to auscultation audra, symmetrical, unlabored. ABSENT: accessory muscle use, chest wall tenderness, crackles, prolonged expiratory phas, rhonchi, tachypnea, wheezes Cardiovascular exam: PRESENT: Tachycardia, +S1, +S2 Pulses: PRESENT: normal carotid pulses Vascular exam: PRESENT: normal capillary refill GI/Abdominal exam: PRESENT: nondistended, normal bowel sounds, soft, reducible hernia. ABSENT: guarding, rebound, tenderness Extremities exam: ABSENT: clubbing, pedal edema Musculoskeletal exam: ABSENT: deformity Neurological exam: PRESENT: alert, awake, oriented to person, oriented to place, oriented to situation Psychiatric exam: PRESENT: appropriate affect, normal mood Skin exam: PRESENT: dry, warm Results Laboratory Results: WBC 9.2 10^3/uL (4.0-10.5) 08/25/19 06:02 RBC 4.35 10^6/uL (4.35-5.55) 08/25/19 06:02 Hgb 10.6 g/dL (13.5-17.0) L 08/25/19 06:02 Hct 33.5 % (37.9-51.0) L 08/25/19 06:02 MCV 77 fl (80-97) L 08/25/19 06:02 MCH 24.5 pg (27.0-33.4) L 08/25/19 06:02 MCHC 31.7 g/dL (32.0-36.0) L 08/25/19 06:02 RDW 20.2 % (11.5-14.0) H 08/25/19 06:02 Plt Count 120 10^3/uL (150-450) L 08/25/19 06:02 Lymph % (Auto) 5.1 % (13-45) L 08/25/19 06:02 White % (Auto) 7.2 % (3-13) 08/25/19 06:02 Eos % (Auto) 0.3 % (0-6) 08/25/19 06:02 Baso % (Auto) 0.3 % (0-2) 08/25/19 06:02 Absolute Neuts (auto) 8.0 10^3/uL (1.7-8.2) 08/25/19 06:02 Absolute Lymphs (auto) 0.5 10^3/uL (0.5-4.7) 08/25/19 06:02 Absolute Monos (auto) 0.7 10^3/uL (0.1-1.4) 08/25/19 06:02 Absolute Eos (auto) 0.0 10^3/uL (0.0-0.6) 08/25/19 06:02 Absolute Basos (auto) 0.0 10^3/uL (0.0-0.2) 08/25/19 06:02 Seg Neutrophils % 87.1 % (42-78) H 08/25/19 06:02 Platelet Estimate Cancelled 08/24/19 21:47 PT 16.1 SEC (11.4-15.4) H 08/26/19 04:09 INR 1.28 08/26/19 04:09 Sodium 145.0 mmol/L (137-145) 08/26/19 07:45 Potassium 4.1 mmol/L (3.6-5.0) 08/26/19 07:45 Chloride 110 mmol/L (98-107) H 08/26/19 07:45 Carbon Dioxide 28 mmol/L (22-30) 08/26/19 07:45 Anion Gap 7 (5-19) 08/26/19 07:45 BUN 32 mg/dL (7-20) H 08/26/19 07:45 Creatinine 1.62 mg/dL (0.52-1.25) H 08/26/19 07:45 Est GFR ( Amer) 50 (>60) L 08/26/19 07:45 Est GFR (Non-Af Amer) Cancelled 08/25/19 06:02 Est GFR (MDRD) Non-Af 41 (>60) L 08/26/19 07:45 Glucose 112 mg/dL (75-110) H 08/26/19 07:45 POC Glucose 113 mg/dL (70-110) H 08/27/19 11:53 Calcium 8.3 mg/dL (8.4-10.2) L 08/26/19 07:45 Magnesium 1.7 mg/dL (1.6-2.3) 08/25/19 06:02 Total Bilirubin 0.6 mg/dL (0.2-1.3) 08/25/19 06:02 Direct Bilirubin 0.2 mg/dL (0.0-0.4) 08/25/19 06:02 Neonat Total Bilirubin Not Reportable 08/25/19 06:02 Neonat Direct Bilirubin Not Reportable 08/25/19 06:02 Neonat Indirect Bili Not Reportable 08/25/19 06:02 AST 25 U/L (17-59) 08/25/19 06:02 ALT 16 U/L (<50) 08/25/19 06:02 Alkaline Phosphatase 104 U/L (38-126) 08/25/19 06:02 Troponin I < 0.012 ng/mL 08/21/19 13:02 Total Protein 6.9 g/dL (6.3-8.2) 08/25/19 06:02 Albumin 3.7 g/dL (3.5-5.0) 08/25/19 06:02 Triglycerides 165 mg/dL (<150) H 08/21/19 07:09 Cholesterol 110.08 mg/dL (0-200) 08/21/19 07:09 LDL Cholesterol Direct 46 mg/dL (<100) 08/21/19 07:09 VLDL Cholesterol 33.0 mg/dL (10-31) H 08/21/19 07:09 HDL Cholesterol 41 mg/dL (>40) 08/21/19 07:09 Lipase 175.0 U/L (23-300) 08/24/19 21:47 EGFR Cancelled 08/25/19 06:02 TSH 3.74 uIU/mL (0.47-4.68) 08/21/19 07:09 Urine Color YELLOW 08/23/19 17:30 Urine Appearance CLEAR 08/23/19 17:30 Urine pH 5.0 (5.0-9.0) 08/23/19 17:30 Ur Specific [place] 1.009 08/23/19 17:30 Urine Protein NEGATIVE mg/dL (NEGATIVE) 08/23/19 17:30 Urine Glucose (UA) NEGATIVE mg/dL (NEGATIVE) 08/23/19 17:30 Urine Ketones NEGATIVE mg/dL (NEGATIVE) 08/23/19 17:30 Urine Blood NEGATIVE (NEGATIVE) 08/23/19 17:30 Urine Nitrite NEGATIVE (NEGATIVE) 08/23/19 17:30 Urine Bilirubin NEGATIVE (NEGATIVE) 08/23/19 17:30 Urine Urobilinogen NEGATIVE mg/dL (<2.0) 08/23/19 17:30 Ur Leukocyte Esterase NEGATIVE (NEGATIVE) 08/23/19 17:30 Urine WBC (Auto) 1 /HPF 08/23/19 17:30 Urine RBC (Auto) 0 /HPF 08/23/19 17:30 Urine Mucus (Auto) RARE /LPF 08/23/19 17:30 Urine Ascorbic Acid NEGATIVE (NEGATIVE) 08/23/19 17:30 POC Stool Occult Blood POSITIVE (NEGATIVE) 08/20/19 22:03 Slides for Path Review Cancelled 08/24/19 21:47 Blood Type O POSITIVE 08/20/19 21:35 Blood Type Confirm O POSITIVE 08/20/19 21:35 Antibody Screen NEGATIVE 08/20/19 21:35 Crossmatch See Detail 08/20/19 21:35 08/20/19 08/21/19 08/21/19 20:54 01:19 07:09 Troponin I < 0.012 < 0.012 < 0.012 08/21/19 13:02 Troponin I < 0.012 Impressions: Chest X-Ray 08/20/19 20:41 IMPRESSION: Emphysema. Possible small left pleural effusion. copyright 2011 [employer]- All Rights Reserved Abdomen/Pelvis CT 08/24/19 00:00 IMPRESSION: 1. Recent colonoscopy and EGD. The colon is grossly unremarkable. There is significant dilatation of the stomach and proximal small bowel with air suspicious for small bowel obstruction. Distal small bowel loops are not dilated. Enteric tube is seen in the proximal stomach. May be advanced further for better drainage of the gastric contents. 2. There is significant thinning of the anterior abdominal wall and anterior bulge right greater than left of the stomach and small bowel loops. There is no true hernia. This bulge has increased since 2013. 3. Chronic renal atrophy with renal cysts. No acute renal abnormality. 4. Liver parenchyma appears obviously denser since 2013. This could represent resolution of previous fatty infiltration. However, this can also represent new hemachromatosis. 5. Diffuse atherosclerotic disease. 6. Bilateral pleural effusions greater on the left. Nonspecific groundglass opacities in the lung bases. Rule out CHF. There is mild left cardiomegaly. 7. Distended urinary bladder. Abdomen/Pelvis CT 08/24/19 23:10 IMPRESSION: 1. Unchanged findings as above suggestive of a bowel obstruction with a point of transition in the anterior mid abdomen (image 52 of series 2 and 31 of series 601). 2. Other unchanged findings as detailed above. Chest X-Ray 08/25/19 05:08 IMPRESSION: Enteric tube. Abdomen X-Ray 08/26/19 00:00 IMPRESSION: Nasogastric tube tip and side port in the stomach. Stomach decompressed. Oral contrast given for CT exam 08/25/2019 is de seen in the splenic flexure colon suggesting against high-grade small bowel obstruction Few air-filled mildly dilated small bowel loops in the right lower quadrant. Chest X-Ray 08/26/19 00:00 IMPRESSION: Chronic blunting left lateral costophrenic sulcus. Nasogastric tube tip and side port below the hemidiaphragms. Abdomen X-Ray 08/27/19 07:00 IMPRESSION: Decreased gas dilated small bowel loops throughout the abdomen. Unchanged gas dilated loop of bowel within the left lower quadrant likely corresponding to prior anastomotic site and similar to prior. Oral contrast again noted within the transverse colon. Mild bilateral pleural effusions and bibasilar consolidation, left greater than right. Plan Time Spent: Greater than 30 Minutes Stroke Is this a Stroke Patient?: No Acute Heart Failure - Is this a Heart Failure Patient?: No
== END 2019-08-30 11:30 | disposition home health service (06) | DRG 378 ==
LOC: ER 20:00 → EH 23:10 → 3N 08-21 01:49
PROVIDERS: ADMIT Emergency Medicine; ATTEND Emergency Medicine
PROC: 30233N1 Transfusion of Nonautologous Red Blood Cells into Peripheral Vein, Percutaneous Approach (ICD-10-PCS; principal; 2019-08-20)
PROC: 0DJ08ZZ Inspection of Upper Intestinal Tract, Via Natural or Artificial Opening Endoscopic (ICD-10-PCS; 2019-08-23)
PROC: 0DBQ8ZX Excision of Anus, Via Natural or Artificial Opening Endoscopic, Diagnostic (ICD-10-PCS; 2019-08-23 13:00)
DX: K92.2 Gastrointestinal hemorrhage, unspecified (principal); D62 Acute posthemorrhagic anemia; N17.9 Acute kidney failure, unspecified; I50.32 Chronic diastolic (congestive) heart failure; K57.32 Diverticulitis of large intestine without perforation or abscess without bleeding; K56.609 Unspecified intestinal obstruction, unspecified as to partial versus complete obstruction; T39.315A Adverse effect of propionic acid derivatives, initial encounter; Y92.018 Other place in single-family (private) house as the place of occurrence of the external cause; K62.0 Anal polyp; I12.9 Hypertensive chronic kidney disease with stage 1 through stage 4 chronic kidney disease, or unspecified chronic kidney disease; E87.5 Hyperkalemia; E78.00 Pure hypercholesterolemia, unspecified; N18.3 Chronic kidney disease, stage 3 (moderate); I25.10 Atherosclerotic heart disease of native coronary artery without angina pectoris; E03.9 Hypothyroidism, unspecified; J44.9 Chronic obstructive pulmonary disease, unspecified; I25.2 Old myocardial infarction; Z79.01 Long term (current) use of anticoagulants; Z79.51 Long term (current) use of inhaled steroids; Z79.899 Other long term (current) drug therapy; Z86.73 Personal history of transient ischemic attack (TIA), and cerebral infarction without residual deficits; Z79.1 Long term (current) use of non-steroidal anti-inflammatories (NSAID)
CPT/HCPCS: 36415; 36430; 43235; 45380; 71045; 71046; 74019; 74176; 80048; 80053; 80061; 80076; 81001; 82962; 83690; 83735; 84443; 84484; 85025; 85610; 86850; 86900; 86901; 86920; 87070; 88305; 93005; 93010; 96374; 99285; C9113; J0171; J1200; J1610; J1650; J1940; J2250; J2270; J2310; J2405; J3010; J3490; J7030; J7050; J7120; J7614; P9016

== ENCOUNTER 2020-08-14 12:29 | Observation (INO) | payer OTHER, MEDICARE ==
[2020-08-14 15:14] LABS: ABSOLUTE EOSINOPHILS # (AUTO) 0.3 10^3/uL (0.0-0.6); ABSOLUTE MONOCYTES (AUTO) 0.5 10^3/uL (0.1-1.4); ABSOLUTE NEUT (AUTO) 4.3 10^3/uL (1.7-8.2); BASOPHILS % (AUTO) 0.3 % (0-2); EOSINOPHILS % (AUTO) 4.7 % (0-6); HEMATOCRIT 43.8 % (37.9-51.0); HEMOGLOBIN 14.4 g/dL (13.5-17.0); LYMPHOCYTES % (AUTO) 16.6 % (13-45); MEAN CORPUSCULAR HEMOGLOBIN 29.5 pg (27.0-33.4); MEAN CORPUSCULAR HGB CONC 32.8 g/dL (32.0-36.0); MEAN CORPUSCULAR VOLUME 90 fl (80-97); MONOCYTES % (AUTO) 8.1 % (3-13); PLATELET COUNT 115 10^3/uL (150-450); RED BLOOD COUNT 4.87 10^6/uL (4.35-5.55); SEGMENTED NEUTROPHILS % (AUTO) 70.3 % (42-78); TOTAL CELLS COUNTED % (AUTO) 100 %; WHITE BLOOD COUNT 6.1 10^3/uL (4.0-10.5)
[2020-08-14 15:59] LABS: ALBUMIN 4.1 g/dL (3.5-5.0); ALKALINE PHOSPHATASE 127 U/L (38-126); ANION GAP 13 (5-19); ASPARTATE AMINO TRANSFERASE 28 U/L (17-59); BILIRUBIN,DIRECT 0.3 mg/dL (0.0-0.4); BILIRUBIN,TOTAL 0.4 mg/dL (0.2-1.3); BLOOD UREA NITROGEN 31 mg/dL (7-20); CALCIUM 9.7 mg/dL (8.4-10.2); CARBON DIOXIDE 23 mmol/L (22-30); CHLORIDE 108 mmol/L (98-107); GLUCOSE 113 mg/dL (75-110); POTASSIUM 4.9 mmol/L (3.6-5.0); TOTAL PROTEIN 7.3 g/dL (6.3-8.2)
--- NOTE | 2020-08-14 17:14 | RADIOLOGY REPORT (SQ) ---
EXAM DESCRIPTION: CT CHEST WITHOUT IMAGES COMPLETED DATE/TIME: 08/14/2020 4:53 pm REASON FOR STUDY: hemop COMPARISON: 05/08/2019 TECHNIQUE: CT scan performed of the chest without intravenous contrast. Images reviewed with lung, soft tissue and bone windows. Reconstructed coronal and sagittal MPR images reviewed. All images st ored on PACS. All CT scanners at this facility use dose modulation, iterative reconstruction, and/or weight based d osing when appropriate to reduce radiation dose to as low as reasonably achievable (ALARA). [facility]: Dose Right [facility]: CareDose [facility]: Dose Right [facility]: Teradose 4D [facility]: Smart Entrec RADIATION DOSE: CT Rad equipment meets quality standard of care and radiation dose reduction techniq ues were employed. CTDIvol: 14.4 mGy. DLP: 625 mGy-cm. mGy. LIMITATIONS: No technical limitations. FINDINGS: LUNGS AND PLEURA: Mildly increased interstitial markings and prominent peripheral distribu tion were seen to some degree on comparison CT imaging, but do appear to be somewhat increased on tod ay's examination. There is also a small left-sided pleural effusion today. No pneumothorax. Backgr ound of centrilobular emphysematous changes. The airways are clear. HILAR AND MEDIASTINAL STRUCTURES: No identified masses or abnormal nodes. No obvious aneurysm. HEART AND VASCULAR STRUCTURES: No aneurysm. No pericardial effusion. UPPER ABDOMEN: No significant findings. Limited exam. THYROID AND OTHER SOFT TISSUES: No masses. No adenopathy. BONES: No significant finding. HARDWARE: None in the chest. OTHER: No other significant findings. IMPRESSION: The appearance of subtly increased peripheral interstitial markings and a small left-silvia ed pleural effusion may represent progression in chronic interstitial lung disease. A superimposed a typical infection is not excluded. TECHNICAL DOCUMENTATION: JOB ID: [id number] Quality ID # [id number]: Final reports with documentation of one or more dose reduction techniques (e.g., Au tomated exposure control, adjustment of the mA and/or kV according to patient size, use of iterative reconstruction technique) 2010 [employer]- All Rights Reserved Reading location - IP/workstation name: [email or web address]
--- NOTE | 2020-08-14 17:35 | EKG REPORT ---
SEVERITY:- ABNORMAL ECG - SINUS RHYTHM IVCD, CONSIDER ATYPICAL RBBB : Confirmed by: Joao Muir MD 14-Aug-2020 17:35:09
--- NOTE | 2020-08-14 17:42 | RADIOLOGY REPORT (SQ) ---
EXAM DESCRIPTION: CHEST SINGLE VIEW IMAGES COMPLETED DATE/TIME: 08/14/2020 4:19 pm REASON FOR STUDY: cough COMPARISON: CT chest same date. EXAM PARAMETERS: NUMBER OF VIEWS: One view. TECHNIQUE: Single frontal radiographic view of the chest acquired. RADIATION DOSE: NA LIMITATIONS: None. FINDINGS: LUNGS AND PLEURA: The lungs are hyperinflated. Increased interstitial prominence at the l marc bases, corresponding to sub pleural reticulation on CT, indicating underlying mild pulmonary fibr osis. No focal consolidation or pleural effusion. No pneumothorax. MEDIASTINUM AND HILAR STRUCTURES: No masses. Contour normal. HEART AND VASCULAR STRUCTURES: Heart normal in size. Normal vasculature. BONES: No acute findings. HARDWARE: None in the chest. OTHER: No other significant finding. IMPRESSION: No acute cardiopulmonary disease. Hyperinflated lungs which can be seen with obstructiv e lung disease. TECHNICAL DOCUMENTATION: JOB ID: [id number] 2010 [employer]- All Rights Reserved Reading location - IP/workstation name: [email or web address]
[2020-08-14] MEDS ORDERED: MORPHINE SULFATE 10 MG/ML INJ IV ONE (18:04)
--- NOTE | 2020-08-14 18:10 | ER Document Report ---
ED General - General Chief Complaint: Shortness Of Breath Stated Complaint: COUGHING UP BLOOD CHEST PAINS Time Seen by Provider: 08/14/20 15:52 Primary Care Provider: VASILIY NICHOLSON MD [Primary Care Provider] - Follow up as needed Mode of Arrival: Ambulatory Information source: Patient TRAVEL OUTSIDE OF THE [place] IN LAST 30 DAYS: No - HPI Notes: Patient presents with central chest pain. He states is been relatively constant for today. Nothing makes it better or worse. Somewhat of a burning sensation. Moderate in intensity. He also states he has had a new cough that is productive of hemoptysis. States he is chronically on Eliquis. States he has had hemoptysis one other time in the past and that no cause could be found. He states he is not sure if he had a bronchoscopy but he believes he did. Patient states he is taking care of at the [facility]. No vomiting or diarrhea. He is not been lightheaded or dizzy. He states he is also had some generalized body aches. No known exposure to the Covid virus. - Related Data Allergies/Adverse Reactions: No Known Allergies Allergy (Verified 08/14/20 13:28) Past Medical History - General Information source: Patient - Social History Smoking Status: Never Smoker Chew tobacco use (# tins/day): No Drug Abuse: None Family History: CAD, COPD, CVA, Hypertension. 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 Denies: Hx Seizures Endocrine Medical History: Reports: Hx Hypothyroidism. Denies: Hx Diabetes Mellitus Type 1, Hx Diabetes Mellitus Type 2, Hx Hyperthyroidism Renal/ Medical History: Denies: Hx Peritoneal Dialysis GI Medical History: Reports: Hx Hiatal Hernia, Hx Ulcer. Denies: Hx Cirrhosis, Hx Crohn's Disease, Hx Hepatitis, Hx Ulcerative Colitis Musculoskeletal Medical History: Reports Hx Arthritis Skin Medical History: Denies Hx Eczema, Denies Hx Psoriasis Psychiatric Medical History: Denies: Hx Depression Traumatic Medical History: Reports: Hx Fractures - rt hand, lft knee Infectious Medical History: Denies: Hx Hepatitis Past Surgical History: Reports: Hx Abdominal Surgery - bowel obstructionX6, Hx Appendectomy - 1963, Hx Cardiac Surgery - CARDIAC STENT, AORTIC GRAFT, Hx Cholecystectomy - 2008. Denies: Hx Pacemaker - Immunizations Hx Diphtheria, Pertussis, Tetanus Vaccination: Yes - 2006 Hx Pneumococcal Vaccination: 11/20/13 Review of Systems - Review of Systems Constitutional: denies: Chills, Fever Cardiovascular: Chest pain. denies: Palpitations Respiratory: Cough, Short of breath -: Yes All other systems reviewed and negative Physical Exam - Vital signs Vitals: Pulse Resp BP Pulse Ox 106 H 18 182/84 H 94 08/14/20 12:42 08/14/20 12:42 08/14/20 12:42 08/14/20 12:42 Interpretation: Normal - General General appearance: Appears well, Alert - HEENT Head: Normocephalic, Atraumatic Eyes: Normal Pupils: PERRL - Respiratory Respiratory status: No respiratory distress Chest status: Nontender Breath sounds: Decreased air movement Chest palpation: Normal - Cardiovascular Rhythm: Tachycardia Heart sounds: Normal auscultation Murmur: No - Abdominal Inspection: Normal Distension: No distension Bowel sounds: Normal Tenderness: Nontender Organomegaly: No organomegaly - Back Back: Normal, Nontender - Extremities General upper extremity: Normal inspection, Nontender, Normal color, Normal ROM, Normal temperature General lower extremity: Normal inspection, Nontender, Normal color, Normal ROM, Normal temperature, Normal weight bearing. No: Mary's sign - Neurological Neuro grossly intact: Yes Cognition: Normal Orientation: AAOx4 Dunbar Coma Scale Eye Opening: Spontaneous Benjamin Coma Scale Verbal: Oriented Benjamin Coma Scale Motor: Obeys Commands Benjamin Coma Scale Total: 15 Speech: Normal Motor strength normal: LUE, RUE, LLE, RLE Sensory: Normal - Psychological Associated symptoms: Normal affect, Normal mood - Skin Skin Temperature: Warm Skin Moisture: Dry Skin Color: Normal Course - Re-evaluation Re-evalutation: 08/14/20 18:07 Patient presents complaining of centralized chest pain with some hemoptysis. Since the patient is on chronic Eliquis it seems unlikely he would have a pulmonary embolism. No masses appreciated on CT scan. Patient does have a questionable infiltrate seen on CT scan at this time I will treat him with antibiotics to make sure this is not the cause of his mopped assist until the cause can be further delineated. At this time he does appear stable with stable vitals and stable laboratories. However given his age and being on chronic anticoagulants it seems reasonable for the patient to be admitted to make sure t hat he remains stable. Patient does continue to have hemoptysis here in the emergency department multiple times. I do not see any evidence of coronary artery disease exacerbation at this time. - Vital Signs Vital signs: Temp Pulse Resp BP Pulse Ox 106 H 24 H 182/88 H 98 08/14/20 12:42 08/14/20 16:15 08/14/20 16:15 08/14/20 16:15 - Laboratory Result Diagrams: 08/14/20 13:50 08/14/20 13:50 Laboratory results interpreted by me: 08/14/20 08/14/20 13:50 13:50 RDW 15.0 H Plt Count 115 L Chloride 108 H BUN 31 H Creatinine 1.57 H Est GFR ( Amer) 52 L Est GFR (MDRD) Non-Af 43 L Glucose 113 H Alkaline Phosphatase 127 H - Diagnostic Test Radiology reviewed: Image reviewed, Reports reviewed - EKG Interpretation by Me EKG shows normal: Sinus rhythm Rate: Normal - 93 Rhythm: NSR Hulen/QRS: No: Right axis deviation, Left axis deviation Discharge - Discharge Clinical Impression: Hemoptysis CAD (coronary artery disease) Qualifiers: Coronary Disease-Associated Artery/Lesion type: [place] artery [place] vs. transplanted heart: [place] heart Associated angina: without angina Qualified Code(s): I25.10 - Atherosclerotic heart disease of [place] coronary artery with out angina pectoris Chest pain Qualifiers: Chest pain type: unspecified Qualified Code(s): R07.9 - Chest pain, unspecified Condition: Serious Disposition: ADMITTED OBSERVATION Admitting Provider: Tavo (Hospitalist) Unit Admitted: Telemetry Referrals: VASILIY NICHOLSON MD [Primary Care Provider] - Follow up as needed
[2020-08-14] MEDS ORDERED: IPRATROPIUM/ALBUTEROL 0.5-2.5 MG/3 ML AMPUL NEB PRN (18:37)
--- NOTE | 2020-08-14 18:59 | PDOC H&P ---
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 Patient has history of GI bleeding and was admitted August 2019 for that reason. He was on Coumadin then and was switched to Eliquis on discharge. Patient comes in the emergency room due to chest discomfort and hemoptysis started this morning. His hemoglobin is normal. His CT scan of the chest is questionable atypical pneumonia. Currently he is stable and comfortable on room air. 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 Pulmonary Medical History: Reports: Asthma, Chronic Obstructive Pulmonary Disease (COPD) Denies: Tuberculosis Neurological Medical History: Denies: Seizures Endocrine Medical History: Reports: Hypothyroidism Denies: Diabetes Mellitus Type 1, Diabetes Mellitus Type 2, Hyperthyroidism GI Medical History: Reports: Hiatal Hernia Denies: Cirrhosis, Crohn's Disease, Hepatitis, Ulcerative Colitis Musculoskeltal Medical History: Reports: Arthritis Skin Medical History: Denies: Eczema, Psoriasis Psychiatric Medical History: Denies: Depression Hematology: Reports: Bleeding Tendencies - On warfarin Denies: Anemia Past Surgical History Past Surgical History: Reports: Appendectomy - 1963, Cholecystectomy - 2008 Denies: Pacemaker Social History Smoking Status: Never Smoker Electronic Cigarette use?: No Frequency of Alcohol Use: None Hx Recreational Drug Use: No Drugs: None Hx Prescription Drug Abuse: No Family History Family History: CAD, COPD, CVA, Hypertension. denies: DM, Malignancy Parental Family History Reviewed: Yes Children Family History Reviewed: Yes Sibling(s) Family History Reviewed.: Yes Medication/Allergy Home Medications: Allopurinol [Zyloprim 100 mg Tablet] 100 mg PO BID 08/14/20 Furosemide [Lasix] 40 mg PO DAILY 08/14/20 Allergies/Adverse Reactions: No Known Allergies Allergy (Verified 08/14/20 13:28) Review of Systems All systems: reviewed and no additional remarkable complaints except as stated Physical Exam Vital Signs: Temp Pulse Resp BP Pulse Ox 106 H 24 H 182/88 H 98 08/14/20 12:42 08/14/20 16:15 08/14/20 16:15 08/14/20 16:15 Intake & Output 08/13/20 08/14/20 08/15/20 06:59 06:59 06:59 Weight 305 lb 12.498 oz General appearance: PRESENT: no acute distress, obese Head exam: PRESENT: atraumatic, normocephalic Eye exam: PRESENT: EOMI, PERRLA Ear exam: ABSENT: bleeding, drainage Mouth exam: PRESENT: moist, neck supple Neck exam: ABSENT: meningismus, tenderness Respiratory exam: PRESENT: clear to auscultation audra. ABSENT: accessory muscle use Cardiovascular exam: PRESENT: RRR Pulses: PRESENT: normal carotid pulses, normal radial pulses GI/Abdominal exam: PRESENT: distended, normal bowel sounds Extremities exam: PRESENT: +1 edema - Chronic Neurological exam: PRESENT: alert, awake, oriented to person, oriented to place, oriented to time, oriented to situation Results Laboratory Results: 08/14/20 13:50 08/14/20 13:50 08/14/20 08/14/20 13:50 13:50 WBC 6.1 RBC 4.87 Hgb 14.4 Hct 43.8 MCV 90 MCH 29.5 MCHC 32.8 RDW 15.0 H Plt Count 115 L Seg Neutrophils % 70.3 Sodium 144.0 Potassium 4.9 Chloride 108 H Carbon Dioxide 23 Anion Gap 13 BUN 31 H Creatinine 1.57 H Est GFR ( Amer) 52 L Glucose 113 H Calcium 9.7 Total Bilirubin 0.4 AST 28 Alkaline Phosphatase 127 H Total Protein 7.3 Albumin 4.1 08/14/20 13:50 Troponin I < 0.012 Impressions: Chest CT 08/14/20 15:53 IMPRESSION: The appearance of subtly increased peripheral interstitial markings and a small left-sided pleural effusion may represent progression in chronic interstitial lung disease. A superimposed atypical infection is not excluded. Chest X-Ray 08/14/20 15:53 IMPRESSION: No acute cardiopulmonary disease. Hyperinflated lungs which can be seen with obstructive lung disease. Assessment and Plan - Diagnosis (1) Hemoptysis Is this a current diagnosis for this admission?: Yes Plan: Patient is on Eliquis. CT scan is positive for questionable atypical pneumonia. Hemoglobin is normal. Hold Eliquis for now. Start empiric antibiotics. Monitor closely. Consult pulmonology if available this week. (2) CAD (coronary artery disease) Qualifiers: Coronary Disease-Associated Artery/Lesion type: [place] artery [place] vs. transplanted heart: [place] heart Associated angina: without angina Qualified Code(s): I25.10 - Atherosclerotic heart disease of [place] coronary artery without angina pectoris Is this a current diagnosis for this admission?: Yes Plan: Patient stated that he had cardiac stents and CABG in the past. Continue statin and beta-claire therapy. Hold Eliquis due to acute hemoptysis. (3) Chronic anticoagulation Is this a current diagnosis for this admission?: Yes Plan: Patient is on Eliquis since August 2019 after switching from Coumadin due to GI bleeding. He mentioned that he takes Eliquis for history of aortic thrombosis. (4) Hypothyroidism Qualifiers: Is this a current diagnosis for this admission?: Yes Plan: Continue levothyroxine. (5) CKD (chronic kidney disease), stage III Is this a current diagnosis for this admission?: Yes Plan: Stable. Monitor. (6) Chronic obstructive pulmonary disease (COPD) Qualifiers: Is this a current diagnosis for this admission?: Yes Plan: Start DuoNeb as needed. (7) HTN (hypertension) Qualifiers: Is this a current diagnosis for this admission?: Yes Plan: Monitor blood pressure. Restart antihypertensive medications when they are reconciled. (8) Hypercholesteremia Is this a current diagnosis for this admission?: Yes Plan: Resume statin therapy. - Time Anticipated Discharge Disposition: Home, Self Care Anticipated Discharge Timeframe: na
[2020-08-14] MEDS ORDERED: AZITHROMYCIN INJ 500 MG VIAL IV SCH (19:00)
[2020-08-14] MEDS ORDERED: CEFTRIAXONE 1 GM/D5W RTU 1 GM/50 ML RTUPB IV SCH (20:00)
[2020-08-14] MEDS ORDERED: AZITHROMYCIN 500 MG in DEXTROSE 5%-WATER 250 ML IV SCH (22:00)
[2020-08-14] MEDS ORDERED: AZITHROMYCIN INJ 500 MG VIAL IV ONE (22:18)
[2020-08-14] MEDS: ACETAMINOPHEN 325 MG TABLET PO PRN (22:20)
[2020-08-15] MEDS: ACETAMINOPHEN 325 MG TABLET PO PRN ×2 (03:37→12:47)
[2020-08-15 10:28] LABS: HEMATOCRIT 44.5 % (37.9-51.0); HEMOGLOBIN 14.5 g/dL (13.5-17.0); MEAN CORPUSCULAR HEMOGLOBIN 29.5 pg (27.0-33.4); MEAN CORPUSCULAR HGB CONC 32.7 g/dL (32.0-36.0); MEAN CORPUSCULAR VOLUME 90 fl (80-97); PLATELET COUNT 123 10^3/uL (150-450); RED BLOOD COUNT 4.93 10^6/uL (4.35-5.55); RED CELL DISTRIBUTION WIDTH 15.2 % (11.5-14.0); WHITE BLOOD COUNT 5.6 10^3/uL (4.0-10.5)
[2020-08-15 10:43] LABS: ANION GAP 10 (5-19); BLOOD UREA NITROGEN 28 mg/dL (7-20); CALCIUM 9.7 mg/dL (8.4-10.2); CARBON DIOXIDE 20 mmol/L (22-30); CHLORIDE 110 mmol/L (98-107); GLUCOSE 114 mg/dL (75-110); POTASSIUM 5.5 mmol/L (3.6-5.0)
--- NOTE | 2020-08-15 13:04 | PDOC DISCHARGE SUMMARY ---
Impression - Admit/DC Date/PCP Admission Date/Primary Care Provider: 08/14/20 18:25 VASILIY NICHOLSON MD Discharge Date: 08/15/20 - Discharge Diagnosis (1) Hemoptysis Is this a current diagnosis for this admission?: Yes (2) CAD (coronary artery disease) Is this a current diagnosis for this admission?: Yes (3) Chronic anticoagulation Is this a current diagnosis for this admission?: Yes (4) Hypothyroidism Is this a current diagnosis for this admission?: Yes (5) CKD (chronic kidney disease), stage III Is this a current diagnosis for this admission?: Yes (6) Chronic obstructive pulmonary disease (COPD) Is this a current diagnosis for this admission?: Yes (7) HTN (hypertension) Is this a current diagnosis for this admission?: Yes (8) Hypercholesteremia Is this a current diagnosis for this admission?: Yes - Additional Information Discharge Diet: As Tolerated Discharge Activity: Activity As Tolerated Referrals: BRIT MARTINEZ MD [ACTIVE STAFF] - VASILIY NICHOLSON MD [Primary Care Provider] - Follow up as needed Prescriptions: Cefuroxime Axetil [Ceftin 500 mg Tablet] 1 tab PO BID #14 tablet Azithromycin [Zithromax] 250 mg PO DAILY #14 tablet Home Medications: Allopurinol [Zyloprim 100 mg Tablet] 100 mg PO BID 08/14/20 Furosemide [Lasix] 40 mg PO DAILY 08/14/20 Azithromycin [Zithromax] 250 mg PO DAILY #14 tablet 08/15/20 Cefuroxime Axetil [Ceftin 500 mg Tablet] 1 tab PO BID #14 tablet 08/15/20 History of Present Illiness History of Present Illness: SERGO DE LA VEGA is a 80 year old male who has history of coronary artery disease status post cardiac stents and CABG, 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 Patient has history of GI bleeding and was admitted August 2019 for that reason. He was on Coumadin then and was switched to Eliquis on discharge. Patient comes in the emergency room due to chest discomfort and hemoptysis started this morning. His hemoglobin is normal. His CT scan of the chest is questionable atypical pneumonia. Currently he is stable and comfortable on room air. Hospital Course Hospital Course: (1) Hemoptysis Patient is on Eliquis. CT scan is positive for questionable atypical pneumonia. Hemoglobin is normal and continued to be stable. We held Eliquis on admission and started empiric antibiotics. Hemoglobin continues to be stable. No further hemoptysis during hospitalization. (2) CAD (coronary artery disease) Patient stated that he had cardiac stents and CABG in the past. Continue statin and beta-claire therapy. (3) Chronic anticoagulation Patient is on Eliquis since August 2019 after switching from Coumadin due to GI bleeding. He mentioned that he takes Eliquis for history of aortic thrombosis. (4) Hypothyroidism Continue levothyroxine. (5) CKD (chronic kidney disease), stage III Stable. (6) Chronic obstructive pulmonary disease (COPD) DuoNeb as needed. No exacerbation. (7) HTN (hypertension) Stable (8) Hypercholesteremia Continue statin therapy. Patient is currently stable. Hemoglobin stable. No hemoptysis. Patient had massive GI bleed that required transfusion August 2019 and was continued on anticoagulation on discharge. That tells me that anticoagulation is important. We will restart Eliquis on discharge. Needs to follow-up with pulmonology outpatient. If he decompensates or have recurrence of symptoms, he should come to the emergency room immediately. Discussed with the patient and his son in details. We will try to stay with him the next couple of days to care for him. Physical Exam Vital Signs: Temp Pulse Resp BP Pulse Ox 98.5 F 101 H 17 182/75 H 95 08/15/20 12:48 08/15/20 12:48 08/15/20 12:48 08/15/20 12:48 08/15/20 12:48 Intake & Output 08/14/20 08/15/20 08/16/20 06:59 06:59 06:59 Intake Total 500 Balance 500 Weight 301 lb 13.005 oz Exam: General appearance: PRESENT: no acute distress, obese Head exam: PRESENT: atraumatic, normocephalic Eye exam: PRESENT: EOMI, PERRLA Ear exam: ABSENT: bleeding, drainage Mouth exam: PRESENT: moist, neck supple Neck exam: ABSENT: meningismus, tenderness Respiratory exam: PRESENT: clear to auscultation audra. ABSENT: accessory muscle use Cardiovascular exam: PRESENT: RRR Pulses: PRESENT: normal carotid pulses, normal radial pulses GI/Abdominal exam: PRESENT: distended, normal bowel sounds Extremities exam: PRESENT: +1 edema - Chronic Neurological exam: PRESENT: alert, awake, oriented to person, oriented to place, oriented to time, oriented to situation Results Laboratory Results: WBC 5.6 10^3/uL (4.0-10.5) 08/15/20 09:45 RBC 4.93 10^6/uL (4.35-5.55) 08/15/20 09:45 Hgb 14.5 g/dL (13.5-17.0) 08/15/20 09:45 Hct 44.5 % (37.9-51.0) 08/15/20 09:45 MCV 90 fl (80-97) 08/15/20 09:45 MCH 29.5 pg (27.0-33.4) 08/15/20 09:45 MCHC 32.7 g/dL (32.0-36.0) 08/15/20 09:45 RDW 15.2 % (11.5-14.0) H 08/15/20 09:45 Plt Count 123 10^3/uL (150-450) L 08/15/20 09:45 Lymph % (Auto) 16.6 % (13-45) 08/14/20 13:50 [place] % (Auto) 8.1 % (3-13) 08/14/20 13:50 Eos % (Auto) 4.7 % (0-6) 08/14/20 13:50 Baso % (Auto) 0.3 % (0-2) 08/14/20 13:50 Absolute Neuts (auto) 4.3 10^3/uL (1.7-8.2) 08/14/20 13:50 Absolute Lymphs (auto) 1.0 10^3/uL (0.5-4.7) 08/14/20 13:50 Absolute Monos (auto) 0.5 10^3/uL (0.1-1.4) 08/14/20 13:50 Absolute Eos (auto) 0.3 10^3/uL (0.0-0.6) 08/14/20 13:50 Absolute Basos (auto) 0.0 10^3/uL (0.0-0.2) 08/14/20 13:50 Seg Neutrophils % 70.3 % (42-78) 08/14/20 13:50 Sodium 140.2 mmol/L (137-145) 08/15/20 09:45 Potassium 5.5 mmol/L (3.6-5.0) H 08/15/20 09:45 Chloride 110 mmol/L (98-107) H 08/15/20 09:45 Carbon Dioxide 20 mmol/L (22-30) L 08/15/20 09:45 Anion Gap 10 (5-19) 08/15/20 09:45 BUN 28 mg/dL (7-20) H 08/15/20 09:45 Creatinine 1.53 mg/dL (0.52-1.25) H 08/15/20 09:45 Est GFR ( Amer) 53 (>60) L 08/15/20 09:45 Est GFR (MDRD) Non-Af 44 (>60) L 08/15/20 09:45 Glucose 114 mg/dL (75-110) H 08/15/20 09:45 Calcium 9.7 mg/dL (8.4-10.2) 08/15/20 09:45 Total Bilirubin 0.4 mg/dL (0.2-1.3) 08/14/20 13:50 Direct Bilirubin 0.3 mg/dL (0.0-0.4) 08/14/20 13:50 Neonat Total Bilirubin Not Reportable 08/14/20 13:50 Neonat Direct Bilirubin Not Reportable 08/14/20 13:50 Neonat Indirect Bili Not Reportable 08/14/20 13:50 AST 28 U/L (17-59) 08/14/20 13:50 ALT 21 U/L (<50) 08/14/20 13:50 Alkaline Phosphatase 127 U/L (38-126) H 08/14/20 13:50 Troponin I < 0.012 ng/mL 08/14/20 13:50 Total Protein 7.3 g/dL (6.3-8.2) 08/14/20 13:50 Albumin 4.1 g/dL (3.5-5.0) 08/14/20 13:50 08/14/20 13:50 Troponin I < 0.012 Impressions: Chest CT 08/14/20 15:53 IMPRESSION: The appearance of subtly increased peripheral interstitial markings and a small left-sided pleural effusion may represent progression in chronic interstitial lung disease. A superimposed atypical infection is not excluded. Chest X-Ray 08/14/20 15:53 IMPRESSION: No acute cardiopulmonary disease. Hyperinflated lungs which can be seen with obstructive lung disease. Plan Time Spent: Less than 30 Minutes Stroke Is this a Stroke Patient?: No Acute Heart Failure Is this a Heart Failure Patient?: No
[2020-08-15 13:51] VITALS: BP 161/65
== END 2020-08-15 14:15 | disposition home or self-care (01) ==
LOC: ER 12:29 → EH 18:25 → 5 21:15
PROVIDERS: ADMIT Family Medicine; ATTEND Family Medicine
DX: R04.2 Hemoptysis (principal); I13.0 Hypertensive heart and chronic kidney disease with heart failure and stage 1 through stage 4 chronic kidney disease, or unspecified chronic kidney disease; I50.9 Heart failure, unspecified; N18.30 Chronic kidney disease, stage 3 unspecified; I25.10 Atherosclerotic heart disease of native coronary artery without angina pectoris; E03.9 Hypothyroidism, unspecified; R07.89 Other chest pain; J44.9 Chronic obstructive pulmonary disease, unspecified; E78.00 Pure hypercholesterolemia, unspecified; E66.9 Obesity, unspecified; R00.0 Tachycardia, unspecified; Z79.899 Other long term (current) drug therapy; Z79.01 Long term (current) use of anticoagulants; Z95.5 Presence of coronary angioplasty implant and graft; Z95.1 Presence of aortocoronary bypass graft; I73.9 Peripheral vascular disease, unspecified; I25.2 Old myocardial infarction; Z82.49 Family history of ischemic heart disease and other diseases of the circulatory system; Z86.718 Personal history of other venous thrombosis and embolism; Z87.19 Personal history of other diseases of the digestive system; Z90.49 Acquired absence of other specified parts of digestive tract
CPT/HCPCS: 93005; 94640; 99285; 96374; 36415 ×2; 85025; 85027; 80048; 80053; 84484; 71045; 71250; 93010; G0378 ×3; J2270; J7060; J0456; J0696